=== PATIENT | female | born 1960 | race Caucasian/White ===

== ENCOUNTER → 2017-11-20 15:41 | Outpatient (CLI) | payer OTHER, SELFPAY ==
--- NOTE | 2017-11-20 15:45 | RAD_ITS ---
STUDY: X-RAY - RIGHT ELBOW REASON FOR EXAM: Female, 57 years old. Chronic pain TECHNIQUE: 3 view(s) of the elbow. COMPARISON: None. FINDINGS: Normal visualized humerus, radius and ulna. Normal radiocapitellar and ulnotrochlear articulations. The soft tissue structures are unremarkable. RAD/Elbow min 3 Views IMPRESSION: Normal x-ray examination of the elbow. Electronically Signed: Zachary Martin MD at 15:29 EDT , Service support ,
== END ==
PROVIDERS: Visit Provider Nurse Practitioner Family
DX: M25.531 Pain in right wrist (principal)
CPT/HCPCS: 73080

== ENCOUNTER 2018-10-24 09:00 | Outpatient (RCR) | payer OTHER, SELFPAY ==
--- NOTE | 2018-09-15 09:42 | HP.PTEVAL ---
Patient's Visit Information MARCO A DÍAZ is a 58 year old F referred to Physical Therapy by Felix Rod DPM with a diagnosis of R plantar fas ial fibromatosis. Date of Evaluation: 09/15/18 Physical Therapist: Will Reyes DPT, OCS, CSCS - Visit Plan Frequency: 3x /Week Duration: 4-6 Weeks Plan: 3x/week for 3-6 weeks for ... STM to PF R and ankle. stretch R gastroc. ionto with dex to R heel. Monitor and progress HEP stretch to TB strength as pain comes down. Consider dry needling if pain not improved. - Subjective Findings: Dr. Rod sent. Plantarfasciitis [facility] e October. Sqitched foot doctors and they have tried everything. R foot pain in arch and going back to heel. Has boot but could not wear it today due to snow. It does help the heel pain. Worse with walking and being on it. Had 6 cortisone shots which did not help. Got two pairs of shoes. Has nightsplint and boot and cane. Took cortisone internall. Used ice, nothing helped. Will have an MRI after seeing this doctor for 6 months. Morning is not worse than the rest of the day. 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 3 pairs custom orthotics. Sleep is OK. Activities : cannot run or ex anymore, laundry is difficult with boot on steps. carrying heavy objects makes it worse.Carrying grand daughter is worse. - Pain R heel and arch Pain Intensity (Out of 10): 2 Pain Intensity Range: 0, 10 - Objective Walks with R antalgia, slow and avoids WB through heel medially. Trasfers I. AROM R ankle DF 0 knee straight and 5 knee bent. PF/eversion/inversion WNL. Strength 4/5 in all ankle otions. Mildly tender to the touch R heel medially. Metatarsals move well asd oes big toe. Reflexes 2/3 patella and achilles. Sensation WNL to gross light touch. SLS challenging B at 8 seconds. - Goals Goal 1:: Pateint feel 75% better with pain 2/10 at worst Goal Time Frame: 4-6 Weeks Goal 2:: Patient I syed ppropriate HEP to minimize future problems. Goal Time Frame: 4-6 Weeks Goal 3:: Juan Jose confident with climbing volcano in November vacation Goal Time Frame: 4-6 Weeks - Rehabilitation Potential Physical Therapy Diagnosis: R plantar fascial fibromatosis. Rehabilitation Potential: Fair - Anticipated Interventions Patient/Client Instruction: Educate patient on: Condition, Plan of Care For the Purpose of:: To decrease pain, To increase ROM, To improve ability of physical actions for home/community/work/leisure, To improve gait and locomotor functions Therapeutic Exercise to Include: Strength training, Flexibilty training For the Purpose of:: To decrease pain, To increase ROM Manual Therapy Techniques to Include: Soft tissue mobilization For the Purpose of:: To decrease pain, To increase ROM Iontophoresis (with Dexamethozone, with Acetic acid): Yes - R heel For the Purpose of:: To decrease pain, To decrease swelling/inflammation Thank you for the opportunity to evaluate your patient. For Medicare and Medicare HMO plans, please review the plan of care and approve it. It will need to be FAXED BACK to us at [phone] for Medicare purposes. For Medicare only, by signing this I certify the plan of care. Please let me know if there are questions or concerns regarding this plan of care. Physician Signature: Date:
--- NOTE | 2018-10-24 09:26 | HP.PTDCSUM_ITS ---
HP - PT D/C Summary It has been my pleasure to treat MARCO A DÍAZ under orders from Felix Rod DPM, for the diagnosis of R plantar fas ial fibromatosis for a total of 15 visit(s). Discharge Date: 10/24/18 Please see the following information for a summary of their discharge status. - Subjective Subjective: Up and down. R knee starts hurting. Has socks and sleeves. Walked a half mile last night and got better as she went. stretching daily. Sleep is good. Worse first thing in am. Used brace at night, has orthotics, doing stretches, had injections. Frustrating at times. - Pain R heel and arch Pain Intensity (Out of 10): 1 - Overall Improvement % Improvement: 70 - Objective Objective/Function: gastroc muscle still tight at 1 degree DF with knee straight , better with knee bent. Mild tenderness R calcaneal insertion of PF mild this am. Mild antalgia walking todaya fter sitting in waiting room. Overall better but not satisfactory. - Goals Goal 1:: Pateint feel 75% better with pain 2/10 at worst Goal Progress: Not Progressing Goal 2:: Patient I syed ppropriate HEP to minimize future problems. Goal Progress: Goal Met Goal 3:: Patein confident with climbing volcano in November vacation Goal Progress: not overly confident - Plan Plan: Recommend return to doctor for nex tstep based on frustration level and up and down nature of her improvement. She will call doctor to schedule. She does have a vacation planned int wo months that she would like to be mobile for. If no other options, she can come back for further treatment. - D/C Information Discharge Comments: Pt to schedule with doctor regarding other possible options and should be sent back if no other good options based on the timing of her up coming vacation. If there are questions or concerns regarding this patient's physical therapy, please feel free to call me at [phone]. Thank you for the referral of this patient. Sincerely, Will Reyes, DPT, OCS, CSCS
== END 2018-10-24 19:00 | disposition home or self-care (01) ==
LOC: PT 09:00
PROVIDERS: Referring Provider Podiatrist; Visit Provider Podiatrist
DX: M72.2 Plantar fascial fibromatosis (principal); M79.671 Pain in right foot; M77.31 Calcaneal spur, right foot; M21.6X9 Other acquired deformities of unspecified foot
CPT/HCPCS: 97033; 97110; 97140; 97161; 97530

== ENCOUNTER → 2019-01-08 | Outpatient (CLI) | payer OTHER, SELFPAY ==
[2017-12-04 10:34] VITALS: BMI 27.8
--- NOTE | 2019-01-08 11:01 | RAD_ITS ---
STUDY: X-RAY - RIGHT KNEE REASON FOR EXAM: Right knee pain. TECHNIQUE: 4 view(s) of the knee. COMPARISON: None. FINDINGS: Normal visualized distal femur. Normal visualized proximal tibia and fibula. Normal proximal tibiofibular articulation. There is mild joint space narrowing of the medial femorotibial compartment. Normal lateral femorotibial compartment. Normal patellofemoral articulation. There is mild patellar enthesopathy. RAD/Knee 4 or More Views IMPRESSION: Mild arthrosis of the medial femorotibial compartment. Electronically Signed: Israel Merino MD at 11:44 EDT Tel , Service support ,
--- NOTE | 2019-01-08 11:01 | RAD_ITS ---
STUDY: X-RAY - PELVIS AND RIGHT HIP REASON FOR EXAM: Right hip/groin pain. TECHNIQUE: 2 views of the pelvis and hip. COMPARISON: None. FINDINGS: Normal visualized soft tissue structures. Normal bilateral iliac wings, sacroiliac joints and visualized sacrum. Normal bilateral superior and inferior pubic rami. Normal pubic symphysis. Normal bilateral ischial tuberosities. Normal visualized femoral head. Normal acetabulum. Normal hip joint. RAD/HIP, UNI W/ Pelvis 2-3 Views IMPRESSION: Normal x-ray examination of the pelvis and right hip. Electronically Signed: Israel Merino MD at 11:48 EDT Tel , Service support ,
--- NOTE | 2019-01-08 12:05 | RAD_ITS ---
STUDY: X-RAY - LUMBOSACRAL SPINE REASON FOR EXAM: Female, 58 years old. Radiculopathy with hip and back pain. TECHNIQUE: 7 view(s) of the lumbosacral spine including lateral flexion and extension views were obtained. COMPARISON: None FINDINGS: Normal lumbar lordosis. There is no substantial scoliosis. There is normal alignment of the vertebrae. There is limited flexion and extension with no abnormal motion. Normal vertebral bodies and endplates. There is intervertebral disc space narrowing at multiple levels, most marked at L5-S1 with small osteophytes. There is diffuse facet sclerosis. Normal bilateral sacral ala, sacroiliac joints, and visualized sacrum. Normal visualized soft tissue structures. RAD/L/S Spine Comp/w Bending Views IMPRESSION: Limited flexion and extension with no abnormal motion. Mild lumbar spondylosis. Electronically Signed: Lucio Latif MD at 12:50 EDT , Service support ,
== END | disposition home or self-care (01) ==
LOC: HPRAD 11:00
PROVIDERS: Referring Provider Orthopaedic Surgery; Visit Provider Orthopaedic Surgery
DX: M25.551 Pain in right hip (principal); M25.561 Pain in right knee; M54.5 Low back pain
CPT/HCPCS: 72114; 73502; 73564

== ENCOUNTER → 2020-03-14 | Outpatient (CLI) | payer OTHER, SELFPAY ==
[2020-03-14 12:59] VITALS: BMI 27.8
--- NOTE | 2020-03-14 13:01 | RAD_ITS ---
STUDY: X-RAY - RIGHT KNEE REASON FOR EXAM: Female, 59 years old. Chronic right knee pain TECHNIQUE: 4 view(s) of the knee. COMPARISON: 01/08/2019 FINDINGS: Normal visualized distal femur. Normal visualized proximal tibia and fibula. Normal proximal tibiofibular articulation. There is mild degenerative arthrosis of the medial femorotibial compartment. Normal lateral femorotibial compartment. Normal patellofemoral articulation. The soft tissue structures are unremarkable. RAD/Knee 4 or More Views IMPRESSION: Mild medial compartment arthrosis, no demonstrated fracture or suspicious osseous lesion Electronically Signed: Zachary Martin MD at 13:29 EDT , Service support ,
== END | disposition home or self-care (01) ==
LOC: HPRAD 13:00
PROVIDERS: Referring Provider Physician Assistant; Visit Provider Physician Assistant
DX: M25.561 Pain in right knee (principal)
CPT/HCPCS: 73564

== ENCOUNTER → 2020-03-24 | Outpatient (CLI) | payer OTHER, SELFPAY ==
[2020-03-14 12:59] VITALS: BMI 27.8
--- NOTE | 2020-03-24 13:47 | MRI_ITS ---
STUDY: MRI RIGHT KNEE REASON FOR EXAM: Female, 59 years old. Knee pain TECHNIQUE: Standardized fat and water weighted pulse sequences were obtained in all 3 orthogonal planes. COMPARISON: X-ray 03/14/2020 FINDINGS: Normal medial meniscus. Normal hyaline cartilage of the medial femorotibial compartment. Normal medial femoral condyle and tibial plateau. Normal medial collateral ligamentous complex (MCL). Normal distal semimembranosus, gracilis and semitendinosus tendons. Normal lateral meniscus. Normal hyaline cartilage of the lateral femorotibial compartment. Normal lateral femoral condyle and tibial plateau. Normal proximal tibiofibular articulation. Normal lateral collateral (fibular) ligament. Normal popliteus tendon. Normal biceps femoris tendon. Normal anterior cruciate ligament (ACL). Normal posterior cruciate ligament (PCL). Focal chondromalacia and subchondral edema of the median ridge of the patella and the medial trochlea. Normal hyaline cartilage of the patellofemoral compartment. Normal medial and lateral patellar retinaculum. Normal quadriceps tendon. Normal patellar tendon. Normal Hoffa''s fat pad. There is no joint effusion. The soft tissues are unremarkable. The otherwise visualized osseous structures are unremarkable. MRI/Lower Ext Joint Only (Routine) IMPRESSION: Mild patellofemoral compartment arthrosis with focal chondromalacia and subchondral edema of the median ridge of the patella and the medial trochlea. Electronically Signed: Joe Neely MD at 16:07 EDT Tel , Service support ,
== END | disposition home or self-care (01) ==
PROVIDERS: PCP Family Medicine; Referring Provider Physician Assistant; Visit Provider Physician Assistant
DX: M23.91 Unspecified internal derangement of right knee (principal); M25.561 Pain in right knee
CPT/HCPCS: 73721

== ENCOUNTER → 2020-06-21 | Outpatient (CLI) | payer OTHER, SELFPAY ==
[2020-06-26 13:13] LABS: HPV Reflexed? NOT INDICATED
== END | disposition home or self-care (01) ==
LOC: LABSPEC 06-22 10:22
PROVIDERS: PCP Family Medicine; Visit Provider Obstetrics & Gynecology
DX: Z12.4 Encounter for screening for malignant neoplasm of cervix (principal)
CPT/HCPCS: 88175; G0145

== ENCOUNTER 2020-07-06 06:26 | Day surgery (SDC) | payer OTHER, SELFPAY ==
[2020-05-24 14:20] VITALS: BMI 27.8
--- NOTE | 2020-07-06 06:12 | HP_ITS ---
I have re-examined the patient. There are no clinical changes since date of exam. Intake Intake Visit Reasons: RIGHT KNEE Allergies No Known Allergies Allergy (Verified 03/31/20 08:30) [facility] Surgical History (Updated 12/04/17 @ 10:35 by Joni Ngeron) Fracture, ankle (Inactive) HPI RIGHT KNEE: Surgical H&P: Yes Details: Parts of this documentation were recorded by a scribe, this documentation accurately reflects the service provided and the decisions made by me, Dr. Reanna Carlos, DO 06/07/20 [id number]. MARCO A DÍAZ is a 59 year old F here today to sign surgical consent for her right knee. Denies any changes from last office visit. Right knee pain is located in the medial knee. Denies numbness, tingling or other associated symptoms. Pain is rated 2/10 from the pain scale. Pain ranges depending on her activity level. Patient is taking ibuprofen for her pain. Patient has been also using icy-hot for pain relief. ROS Const Reports weakness Musc Reports system reviewed and no additional complaints, except as docu, Reports abnormal walking, Reports joint pain, Reports joint swelling, Denies numbness, Denies stiffness, Denies tingling Skin/Breast Reports system reviewed and no additional complaints, except as docu, Denies dry skin, Denies redness, Denies lesions, Denies new lesions, Denies non-healing lesions, Denies itching, Denies rash, Denies skin ulcer, Denies sores, Denies wounds Neuro Yes system reviewed and no additional complaints, except as docu, Yes abnormal walking, No numbness, No tingling, No tremor(s), Yes weakness Ortho Exam Right Knee Skin/Wound: No erythema, No ecchymosis, No swelling Knee ROM: Yes ROM-Extension -20 to 0 Examination: Yes Med jt line tenderness (Seems to be more localized to the femoral condyle), No Lat jt line tenderness, No TTP inf pole patella, No Crepitus, No Pain with extention, Yes Ashtyn's Test, Yes Chavez's, No TTP Patellar tendon Stability: NML: Anterior Drawer KNEE: Patient has no abnormalities on inspection of the knee. No localized or generalized swelling and no ecchymosis/bruising, erythema, or other skin changes. She consents to have full range of motion same time discomfort with flexion. She also has pain letting the leg dangle at 90 degrees with gravity. She continues to have evident localized reproducible tenderness on palpation of the medial joint line primarily on the femoral condyle. We discussed the current risk associated COVID-19. While it is understood that there is a community spread of COVID 19 the risk of vasiliy COVID-19 while at [facility] is very low, however, the risk cannot be completely mitigated because of the community spread of the disease. We discussed in detail the risk of exposure to and or potential harm posed by the COVID-19 virus with having a surgery/procedure at this time versus the risk of delaying the surgery/procedure. Is not possible to know either the risk of delaying the surgery procedure or chance of getting an infection with perfect accuracy, but a joint decision was made to proceed at this time with a schedule surgery/procedure as indicated on the consent form. Patient was notified that we will need to comply with any screening or testing [facility] wishes to perform or that surgery may be delayed for any positive results. Assessment & Plan Problems 1. Acute medial meniscus tear of right knee, subsequent encounter S83.241D 2. 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 Reviewed the pre-operative plans with the patient. Risks and benefits of the procedure were fully explained, including but not limited to infection, neurovascular injury, continued pain, arthritis, stiffness, need for further surgery, re- injury, DVT, PE, general risks of anesthesia, and loss of limb or life. The patient understands all the risks and does wish to proceed with written consent. Patient wishes to proceed with right knee micro fracture of the medial femoral condyle along with medial meniscus repair vs meniscectomy and repair as indicated. Surgery date is scheduled for 07/06/2020. The confinement to the radial nerve palsy alma we discussed the current risk associated COVID-19. While it is understood that there is a community spread of COVID 19 the risk of vasiliy COVID-19 while at [facility] is very low, however, the risk cannot be completely mitigated because of the community spread of the disease. We discussed in detail the risk of exposure to and or potential harm posed by the COVID-19 virus with having a surgery/procedure at this time versus the risk of delaying the surgery/procedure. Is not possible to know either the risk of delaying the surgery procedure or chance of getting an infection with perfect accuracy, but a joint decision was made to proceed at this time with a schedule surgery/procedure as indicated on the consent form. Patient was notified that we will need to comply with any screening or testing [facility] wishes to perform or that surgery may be delayed for any positive results. Follow up post op or sooner if pain, swelling, numbness or associated symptoms, or concerns develop. All questions answered. Patient in agreement of plan. 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 delaying the surgery/procedure. It is not possible to know either the risk of delaying the surgery or procedure or chance of getting an infection with perfect accuracy, but a joint decision was made between the patient and the surgeon/proceduralist ?to proceed at this time with the scheduled surgery/procedure as indicated on the consent form.
[2020-07-06 06:54] VITALS: BP 115/64; PULSE 53; RESP 18; TEMP 36.5; O2SAT 100; BMI 27.4
[2020-07-06] MEDS: Lactated Ringers 1,000 ML 100 ML IV (07:10)
--- NOTE | 2020-07-06 07:40 | PCM.DC.ORTHO ---
Discharge Diet: No Restrictions - Weight-bear as tolerated operative leg, remove dressings in 4 days and may get incisions wet at that time, call with increased pain numbness tingling further issues arise, follow-up in 2 weeks Discharge Activity: May Not Drive May shower in (days): 1 Ice area for (Minutes): 20 - Every hour while awake. Weight Bearing Status: Weight bearing as tolerated Keep extremity elevated above heart level: Operative Extremity Call your doctor if your incision/area has: Continuous Slow Oozing, Sudden Increased Bleeding, Increased Pain/ Swelling, Increased Redness, Foul Smelling Discharge Call your doctor if you observe: Fever of 101 or Higher, Coldness, Increased Pain, Numbness or Tingling, Change in Color, Calf discomfort Allergies/Adverse Reactions: Allergies No Known Allergies Allergy (Verified 07/06/20 06:51) Medications to take at Discharge ezetimibe 10 mg tablet 10 mg PO DAILY 01/08/19 Ascorbic Acid [Vitamin C] 500 mg PO DAILY@0800 06/28/20 Ibuprofen 200 mg PO PRN PRN 06/28/20 Magnesium Oxide [Magnesium] 250 mg PO DAILY 06/28/20 Multivitamin [Once Daily] 1 ea PO DAILY 06/28/20 Zinc 50 mg PO DAILY 06/28/20 Oxycodone HCl/Acetaminophen [Percocet 5/325] 1 - 2 tab PO Q6H PRN PRN 5 Days #28 tab 07/06/20 The following prescriptions were given: Oxycodone HCl/Acetaminophen [Percocet 5/325] 1 - 2 tab PO Q6H PRN PRN 5 Days #28 tab PRN Reason: Pain Transmission Status: Received by [facility] Primary Care Physician: Calixto Mercado MD [Primary Care Provider] - Test Results: Test results from this visit will be discussed in further detail at your follow-up appointment, if applicable. Please Follow Up With: Reanna Carlos, DO - [phone]
--- NOTE | 2020-07-06 07:40 | PCM.OPRPT ---
Report of Operation Date of Procedure: 07/06/20 Pre-Operative Diagnosis: Right knee arthritis, medial meniscus tear, medial femoral condyle chondral lesion Post-Operative Diagnosis: Same, patella chondral malacia Surgery/Procedure Performed:: Sark, partial medial meniscectomy, extensive synovectomy, medial femoral condyle and patella chondroplasty special education bus driver: John Vergara Type of Anesthesia:: General Anesthesiologist: José Miguel Gonzalez Fluids Replaced: 800cc lr Description of Procedure: Preop note Patient is 60-year-old female with continued right knee pain and instability clicking and locking. Failed conservative treatment MRI confirms medial meniscus tear as well as arthritis and chondral defect of her medial femoral condyle. Risk benefits alternatives surgery discussed with patient. Risk include but not limited to blood loss, blood clot, infection, neurovascular, failure procedure, loss of life and loss of limb. Patient is aware like proceed with right knee arthroscopy repair as indicated. Jose Sarabia Operative note Patient seen and examined preop preoperative holding area. Right knee was marked. Patient brought the operating placed supine on the operating table. Signed, anesthesia, antibiotics were administered. The right leg was prepped and draped usual sterile technique with a tourniquet around her upper thigh. All bony promises well-padded SCDs placed on her contralateral limb. We then marked out our incision for bony landmarks for our anterior lateral anterior more medial portion portal placement. Timeout was performed. The right leg with an elevated segmented tourniquet was raised her pressure 250 torr. Began our our diagnostic arthroscopy. We used a 11 blade to create anterior lateral portal. Patellofemoral joint was unremarkable except there was some loose pieces of of cartilage and chondral instability at the inferior pole of the patella moved to the medial joint line. We created an anteromedial portal under direct visualization. We probed the medial meniscus there was a sharp radial tear in the mid body. We then inserted combination of a shaver and a basket to remove the unstable meniscus piece we then reinserted probe and noted we had good stable remnant meniscus remaining. Patient the prior to that we did have to perform an extensive synovectomy as it was difficult difficulty visualizing anteromedial anterior lateral into the joint. ACL PCL were present within the notch. The lateral femoral condyle lateral tibial plateau and the lateral meniscus with the table stacked and stable to probing. She had 3 grade 3 changes with 3 x 3 almost half of her medial femoral condyle there were some loose cartilage pieces that was gently debrided back with a shaver. Because of this there was no reason to the extensiveness of her stenting of her cartilage to do a microfracture. Again we debrided back any stable unstable pieces of her medial femoral condyle as well as her patella we irrigated the knee with copious muscle sterile saline. Tract was deflated for total working time of 26 minutes. Incision was closed with interrupted 4-0 nylon stitches. Sterile dressings were applied. Patient taught procedure well no complication transfer recovery room in stable condition Operative note postoperative note Weight-bear as tolerated right leg Follow-up in 2 weeks May remove dressings in 4 days We will give pictures in 2 weeks Call with increased pain numbness tingling further issues arise Dragon disclaimer This note was generated with [employer] dictation software. It may contain incorrect words, spelling, and punctuation that were not noted in checking the note before signing.
[2020-07-06] MEDS: Cefazolin 2 GM in 0.9% Normal Saline 100 ML IV (07:50)
[2020-07-06] MEDS: Bupiv/Epi 0.25% 30 ML Vial (08:30)
[2020-07-06] MEDS: Mupirocin Ointment 22gm Tube 1 APPLIC (08:31)
[2020-07-06] MEDS: Epinephrine (1 mg/ml) 1 MG/ML VIAL (08:31)
[2020-07-06 08:46] VITALS: BP 115/64; BP 125/74; PULSE 63; RESP 18; TEMP 36.6; O2SAT 98
[2020-07-06 08:54] VITALS: BP 115/64; BP 127/96; PULSE 61; RESP 18; O2SAT 99
[2020-07-06 09:00] VITALS: BP 115/64; BP 122/85; PULSE 63; RESP 18; O2SAT 100
[2020-07-06 09:12] VITALS: BP 115/64; BP 128/79; PULSE 61; RESP 18; TEMP 36.4; O2SAT 98
[2020-07-06 10:10] VITALS: BP 115/64; BP 133/77; PULSE 56; RESP 16; TEMP 36.3; O2SAT 100
== END 2020-07-06 10:55 | disposition home or self-care (01) ==
LOC: SDC 06:26 → AC 06:27
PROVIDERS: PCP Family Medicine; Referring Provider Orthopaedic Surgery; Visit Provider Orthopaedic Surgery
PROC: (CPT 29882; principal; 2020-07-06 07:40)
DX: S83.241A Other tear of medial meniscus, current injury, right knee, initial encounter (principal); M17.11 Unilateral primary osteoarthritis, right knee; E78.00 Pure hypercholesterolemia, unspecified; Z79.899 Other long term (current) drug therapy; X58.XXXA Exposure to other specified factors, initial encounter; Y93.89 Activity, other specified; Y92.89 Other specified places as the place of occurrence of the external cause; Y99.8 Other external cause status
CPT/HCPCS: 01400; 29881; 87426; C9803; J7120; J2405

== ENCOUNTER → 2024-04-28 | Outpatient (CLI) | payer OTHER, SELFPAY ==
--- NOTE | 2024-04-28 | EMB_PTH ---
PATIENT: MARCO A DÍAZ LOC: [facility] U#:[id number] AGE/SX: 63/F ROOM: RE04/28/[address]: BARB Leiva : 1960 BED: DIS: 04/28/2024 SPEC #: [id number] RECD: 04/28/24 12:01 STATUS: BK REJackie #: [id number] IMELDA: 04/28/24 00:[address]: Kamilla Calvo NP DEPT: SURGICAL PATHOLOGY RECD BY: Prosper Simental ENTERED: 04/29/24 05:53 SP TYPE: ENDOM BX/C PRAMOD DR: Dr. Calixto Mercado MD Tissues: Endometrium, NOS Procedures: Surgery Specimen Level IV HEADER OPERATION: Endometrial biopsy PRE-OP DIAGNOSIS: Post menopausal bleeding TISSUE SUBMITTED: Endometrial lining MICROSCOPIC DIAGNOSIS Endometrial biopsy: Fragments of inactive endometrium with focal cystic changes and mucous. See comment. VIN/ 04/29/2024 COMMENT Clinical correlation and appropriate follow up are necessary. MICROSCOPIC DESCRIPTION Slides are reviewed. GROSS DESCRIPTION Received is one container labeled with the patient's name and not further designated. The specimen consists of multiple irregular fragments of grimaldo soft tissue mixed with mucoid tissue that in aggregate measure 2.5 x 2.0 x 0.2 cm. The specimen is totally submitted in one cassette. VIN/ 04/28/2024 TC:4 CPT:17904
[2024-05-01 18:08] LABS: HPV APTIMA, High Risk Negative (Negative)
== END | disposition home or self-care (01) ==
LOC: LABSPEC 13:57
PROVIDERS: PCP Family Medicine; Referring Provider Nurse Practitioner Women's Health; Visit Provider Nurse Practitioner Women's Health
DX: Z12.4 Encounter for screening for malignant neoplasm of cervix (principal)
CPT/HCPCS: 87624; 88175; 88305; G0145

== ENCOUNTER → 2024-07-28 | Outpatient (CLI) | payer OTHER, SELFPAY ==
--- NOTE | 2024-07-28 12:22 | US_ITS ---
STUDY: ULTRASOUND OF THE FEMALE PELVIS - COMPLETE REASON FOR EXAM: Female, 64 years old. Monitor uterine lining LMP: Patient is postmenopausal. TECHNIQUE: Transabdominal and Transvaginal TECHNICAL QUALITY: Adequate. COMPARISON: None. FINDINGS: The uterus is anteverted and is in a midline position. The uterus measures 8 cm x 4.8 cm x 3.1 cm. There is a Nabothian cyst of the cervix. The endometrium is thickened and measures 7.7 mm in thickness, and is heterogeneous (striated). There is no demonstrated endometrial mass. There is evidence of a 2.5 cm x 2.7 cm x 2.7 cm fundal fibroid. I.U.D. - The patient does not have an I.U.D. The right ovary is visualized. The right ovary measures 1.2 cm x 1.1 cm x 0.7 cm. There is no right ovarian cyst or ovarian mass. There is no visualized right adnexal mass or complex lesion. There is normal arterial and normal venous vascularity. The left ovary is visualized. The left ovary measures 1.7 cm x 1.1 cm x 0.6 cm. There is no left ovarian cyst or ovarian mass. There is no visualized left adnexal mass or complex lesion. There is normal arterial and normal venous vascularity. There is no fluid in the cul-de-sac. The pre void volume of the bladder was 221 ml. US/Pelvic w/ Transvaginal IMPRESSION: Heterogeneous thickening of the endometrium and with multiple small cystic structures. 2.5 cm x 2.7 cm x 2.7 cm fundal fibroid. Electronically Signed: Sky Ramírez MD at 9:14 EST ,
== END | disposition home or self-care (01) ==
PROVIDERS: PCP Family Medicine; Referring Provider Nurse Practitioner Women's Health; Visit Provider Nurse Practitioner Women's Health
DX: R93.89 Abnormal findings on diagnostic imaging of other specified body structures (principal); Z78.0 Asymptomatic menopausal state; N95.0 Postmenopausal bleeding
CPT/HCPCS: 76830; 76856

== ENCOUNTER → 2025-02-01 | Outpatient (CLI) | payer OTHER, SELFPAY ==
--- NOTE | 2025-02-01 09:03 | US_ITS ---
PROCEDURE: PELVIC W/ TRANSVAGINAL REASON FOR EXAM: OVARIAN CYST, ENDOMETRIUM TECHNIQUE: Transabdominal and transvaginal pelvic ultrasound COMPARISON: Prior study dated July 28, 2024. FINDINGS: Measurements: Uterus: 10.1 cm x 5.1 cm x 3 cm with a volume of 80.5 mL Endometrial Thickness: 7.8 mm. This is thickened for postmenopausal state. Multiple cystic structures are seen within the endometrium. Right Ovary: 1.7 cm x 1.4 cm x 1.3 cm with a volume of 1.54 mL. Left Ovary: 1.8 cm x 1 cm x 1.3 cm with a volume of 1.13 mL. TRANSABDOMINAL: Uterus: There is a 2.6 cm 2.6 cm 2.5 cm fundal fibroid. Endometrium: The endometrium is thickened. It is hyperechoic. Multiple cystic changes are seen within it. The largest measures 8 mm x 4 mm x 4 mm. Right ovary: Normal size and echotexture. Left ovary: Small left ovarian follicle. Other: No large pelvic mass identified. Transvaginal sonography was performed to better visualize the endometrium. TRANSVAGINAL: Uterus: Anteverted. Fundal fibroid. Endometrium: Endometrial thickening with multiple small cystic structures within it. Right ovary: Normal size and echotexture. Left ovary: Small left ovarian follicle. Other adnexal findings: None. Cul-de-sac: No free intraperitoneal fluid identified. Tenderness: No tenderness US/Pelvic w/ Transvaginal IMPRESSION: Endometrial thickening with cystic structures within the endometrium. Small left ovarian follicle. Reading Location: [place] [id number]
== END | disposition home or self-care (01) ==
PROVIDERS: PCP Family Medicine; Referring Provider Nurse Practitioner Women's Health; Visit Provider Nurse Practitioner Women's Health
DX: R93.89 Abnormal findings on diagnostic imaging of other specified body structures (principal)
CPT/HCPCS: 76830; 76856

== ENCOUNTER 2025-07-08 05:45 | Day surgery (SDC) | payer OTHER, SELFPAY ==
--- NOTE | 2025-06-29 13:37 | EKG12_ITS ---
Test Reason : PREOP Blood Pressure : */* mmHG Vent. Rate : 72 BPM Atrial Rate : 72 BPM P-R Int : 132 ms QRS Dur : 72 ms QT Int : 384 ms P-R-T Axes : 57 11 -29 degrees QTcB Int : 420 ms Sinus rhythm with Premature supraventricular complexes Nonspecific ST and T wave abnormality Abnormal ECG Confirmed by Felix Hoff ([id number]), continuity editor [employer] NAVARRETE ([id number]) on 06/30/2025 7:17:21 AM Referred By: Luis Mcconnell Confirmed By: Felix Hoff
[2025-06-29 15:03] LABS: Hematocrit 41.2 % (37-47); Hemoglobin 14.0 g/dL (12.0-15.0); Immature Granulocytes Count 0.020 X10^3/uL (0.0-0.0); Mean Corp Hgb Conc 34.0 g/dL (32-36); Mean Corpuscular Volume 86.2 fL (81-99); Mean Platelet Vol. 10.4 fl (6.2-12.0); NRBC Flagged by Analyzer 0 % (0-5); Platelet Count 273 K/mm3 (150-450); RBC Distribution Width CV 12.4 % (11.6-14.6); RBC Distribution Width SD 39.3 fl (35.1-43.9); Red Blood Count 4.78 M/mm3 (4.2-5.4); White Blood Count 7.1 K/mm3 (4.4-11.0)
[2025-06-29 15:38] LABS: Anion Gap 9 (5-15); BUN 8 mg/dL (4-19); BUN/Creat Ratio 14.6 RATIO (10-20); Calcium,Total 9.3 mg/dL (7.6-11.0); Carbon Dioxide 27.0 mmol/L (21.0-32.0); Chloride 106 mmol/L (98-108); Glucose 105 mg/dL (70-99); Potassium 3.9 mmol/L (3.3-5.1)
--- NOTE | 2025-06-30 09:31 | PAT.ANESEVAL ---
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 When Was Last Pacemaker Check QUESTION #4 FULL TEXT: You/Your Family Experience fever (hyperthermia) with Anesthesia Last Oral Intake Last Oral intake: Last Oral Intake NPO since Meds taken in AM with sips of water? Meds patient instructed to take am of surgery PONV PONV - exercise specialist: PONV - exercise specialist Female Yes 06/23/25 13:02 HX of Motion Sickness Yes 06/23/25 13:02 HX of N/V After Surgery No 06/23/25 13:02 Non-Smoker Yes 06/23/25 13:02 Duration of Surgery greater Yes 06/23/25 13:02 than 60 minutes Number of Risk Factors 4 06/23/25 13:02 PONV Score Severe Risk 06/23/25 13:02 Height & Weight Height & Weight: Anesthesia: Height & Weight Height 5 ft 3.5 in 04/28/24 09:42 Respiratory Assessment Respiratory Assessment - exercise specialist: Respiratory Tract Infection Hx - exercise specialist Hx Respiratory Tract Infection No 06/23/25 13:02 STOP Sleep Apnea STOP Sleep Apnea - exercise specialist: STOP Sleep Apnea - exercise specialist Hx Hypertension No 06/23/25 13:02 Hx Sleep Apnea No 06/23/25 13:02 CPAP No 06/23/25 13:02 BIPAP Do you snore loudly (louder No 06/23/25 13:02 than talking or can be heard Do you often feel tired/ No 06/23/25 13:02 fatigued/ sleepy during daytime? Has anyone observed you stop No 06/23/25 13:02 breathing during sleep? STOP Results Negative 06/23/25 13:02 QUESTION #5 FULL TEXT : Do you snore loudly (louder than talking or can be heard through closed doors)? 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 Specify any problems Hx of Preganancy in last 3 No 06/23/25 13:02 Months Nurse Filling Out Transfusion DSCHRIBER 06/23/25 13:02 & Questions: Date: 06/23/25 06/23/25 13:02 Time: 13:04 06/23/25 13:02 Patient unable to answer at this time (ie. confused, unrespo /Reproduction History /Reproductive History - exercise specialist: /Reproductive Hx- exercise specialist Hx Now No 06/23/25 13:02 Gestational Age (in weeks): EDC: Hx Hx Para Hx Section SAB No 06/23/25 13:02 PFSH Medical History (Updated 06/23/25 @ 13:18 by Ernestina Boles) Wears contact lenses Wears glasses Post-menopausal Alcohol use Arthritis Migraine headache High cholesterol Non-smoker History of pain when walking History of edema Cardiology follow-up encounter Hx of fracture of ankle Home Medications Medication Instructions Recorded Last Taken Type ezetimibe 10 mg tablet 10 mg PO DAILY 01/08/19 Unknown History coenzyme Q10 75 mg capsule 75 mg PO DAILY 09/19/20 Unknown History cholestyramine 4 gram oral powder 4 g PO DAILY 06/23/25 Unknown History (Cholestyramine Light) estradiol 0.01% (0.1 mg/gram) 1 appful vaginal QWEEK 06/23/25 Unknown History vaginal cream meloxicam 15 mg tablet 15 mg PO DAILY PRN pain 06/23/25 Unknown History multivitamin (Daily Multi-Vitamin 1 tab PO DAILY 06/23/25 Unknown History tablet) Allergy/AdvReac Type Severity Reaction Status Date / Time No Known Allergies Allergy Verified 06/23/25 12:58 Family History (Updated 04/28/24 @ 09:52 by Amber Mccabe) Mother Cancer Skin cancer- Mets to lung and brain Surgical History (Updated 06/23/25 @ 13:09 by Ernestina Boles) Hx of colonoscopy Hx of right knee surgery S/P knee replacement Social History (Updated 04/28/24 @ 09:53 by Amber Mccabe) household members: spouse current occupational status: employed current occupation: [employer] Smoking Status: Never smoker alcohol intake: never substance use type: does not use seatbelt use: always do you feel safe at home: Yes additional social history: - Ralph Audit: Pertinent Findings Current Visit Impressions Current Visit Impressions: Sinus rhythm with Premature supraventricular complexes Nonspecific ST and T wave abnormality Abnormal ECG Confirmed by Felix Hoff ([id number]), managing editor [employer] ([id number]) on 06/30/2025 7:17:21 AM Recommendation Anesthesia Recommendation Anesthesia recommendation: OPTIMIZED for anesthesia
[2025-07-08] VITALS (9 sets, daily range): BP systolic 119–147; BP diastolic 72–83; PULSE 57–68; RESP 12–18; TEMP 36.1–36.9; O2SAT 91–98; BMI 26.4
--- OUTSIDE RECORDS SUMMARY | 2025-07-08 05:48 | XMS RPT_ITS | CCD ---
Author Organization [facility] Care Team Providers Care Fur Cutter Name Role Phone Unavailable Primary Care Provider Unavailabl e Vaccaripalmer, Jaun Primary Care Provider HEDY MORALES Referring Unavailable HEDY MORALES Attending Unavailable HEDY MORALES Attending Unavailable HEDY MORALES Referring Unavailable Vaccariello Cristina CUETO Primary Care Provider [phone] HEDY MORALES Attending Unavailable HEDY MORALES Referring Unavailable VACCARIELLO, JAUN Primary Care Unavailable JAY SQUIRES Admitting Unavailab le JAY SQUIRES Attending Unavailab le VACCARIELLO, JAUN Primary Care Unavailable JAY SQUIRES Referring Unavailab le VACCARIELLO, CRISTINA Isaac Admitting Unavailable VACCARIELLO, JAUN Primary Care Unavailable JAY SQUIRES Attending Unavailab le JAY SQUIRES Referring Unavailab le VACCARIELLO, JAUN Primary Care Unavailable HEAVENLY SHAY Attending Unavailable MORALESHEDY ROMERO Attending Unavailable VACCARIELLO, JAUN Primary Care Unavailable HEAVENLY SHAY Attending Unavailable VACCARIELLO, JAUN Primary Care Unavailable HEDY MORALES Attending Unavailable VACCARIELLO, JAUN Primary Care Unavailable HEDY MORALES Attending Unavailable VACCARIELLO, JAUN Primary Care Unavailable JAY SQUIRES Admitting Unavailab CHANEL Lopez Attending Unavailabl e JAY SQUIRES Referring Unavailab le VACCARIELLO, JAUN Primary Care Unavailable JAY SQUIRES Attending Unavailab le VACCARIELLO, JAUN Primary Care Unavailable JAY SQUIRES Attending Unavailab le VACCARIELLO, JAUN Primary Care Unavailable JAY SQUIRES Attending Unavailab le VACCARIELLO, JAUN Primary Care Unavailable JAY SQUIRES Admitting Unavailab carmen SQUIRES, JAY MOSS Referring Unavailab le VACCARIELLO, JAUN Primary Care Unavailable EBEN GAUERO Attending Unavailable CRISTINA MERCADO Primary Care Unavailable Jess, Cristina Faith Primary Care Provider Jess, Jaun Unavailable Unavailable Delia Buckley Unavailable Unavailable Brennen Lang Unavailable Unavailable Vaccaripalmer, Dr. Cristina Faith Primary Care Un available Delia Buckley Attending Unavailable Vaccaripalmer, Dr. Cristina Faith Primary Care Un available Rickey, Ms. Brennen Ludwig Attending Eliane Mercado MD, Cristina Isaac Unavailable Gastroenterology Provider Unavailable Eliane Ramirez MD., Dr. Diaz Unavailable Physical Therapy, Zeus Robert Unavailable Xavier CARRERA MD, Dr. Washington Unavailable Unavailable Cisco CUETO, Galilea Meza Unavailable Marcio URBAN PLANNER, Hanna Unavailable Luis HALEY, Suki Alan Unavailable Javi CUETO, Thaddeus Stratton Unavailable Bry GOODEN, Luna Meza Unavailable Unavailable Tigre GOODEN, Cristina Unavailable Unavailable Dalila HALEY, Delia Moore Unavailable [phone] Dana Rodriguez Unavailable Unavailable Robi GOODEN, Marsha Unavailable Unavailable Messi GROVE, Delia Isaac Unavailable Unavaila ble Mike URBAN PLANNER, Gemma Unavailable Unavailable Ronald HALEY, Airam J Unavailable Stew URBAN PLANNER, Dot Johansen Unavailable Unavailab carmen Romy URBAN PLANNER, Galilea Lopez Unavailable Unavailab carmen Alvarado LPN, Amina Unavailable Unavailabl e Cheikh GOODEN, Martita Madera Unavailable Unavaila ble Unavailable Unavailable Erin Miller LPN Unavailable Unavailbrenna Khan DO, Dr. Smith Unavailable Cristina Mercado Primary Care Provider LAURIE WALKER PIPING MANAGER Admitting Unavailable VACCARIELLO, CRISTINA Consulting Unavailable LAURIE WALKER PIPING MANAGER Attending Unavailable LAURIE WALKER PIPING MANAGER Primary Care Unavailable PROVIDER, UNKNOWN Consulting Unavailable PROVIDER, UNKNOWN Consulting Unavailable PROVIDER, UNKNOWN Consulting Unavailable LAURIE WALKER PIPING MANAGER Admitting Unavailable VACCARIELLO, CRISTINA Consulting Unavailable LAURIE WALKER PIPING MANAGER Attending Unavailable LAURIE WALKER PIPING MANAGER Primary Care Unavailable PROVIDER, UNKNOWN Consulting Unavailable PROVIDER, UNKNOWN Consulting Unavailable PROVIDER, UNKNOWN Consulting Unavailable VACCARIELLO, CRISTINA Consulting Unavailable LAURIE WALKER PIPING MANAGER Attending Unavailable LAURIE WALKER PIPING MANAGER Primary Care Unavailable LAURIE WALKER PIPING MANAGER Admitting Unavailable PROVIDER, UNKNOWN Consulting Unavailable PROVIDER, UNKNOWN Consulting Unavailable PROVIDER, UNKNOWN Consulting Unavailable VACCARIELLO, CRISTINA Consulting Unavailable LUIS KHAN DO Admitting Unavailable LUIS KHAN DO Attending Unavailable LUIS KHAN DO Primary Care Unavailable PROVIDER, UNKNOWN Consulting Unavailable PROVIDER, UNKNOWN Consulting Unavailable PROVIDER, UNKNOWN Consulting Unavailable VACCARIELLO, CRISTINA Consulting Unavailable LAURIE WALKER PIPING MANAGER Attending Unavailable LAURIE WALKER NP Primary Care Unavailable LAURIE WALKER PIPING MANAGER Admitting Unavailable PROVIDER, UNKNOWN Consulting Unavailable PROVIDER, UNKNOWN Consulting Unavailable PROVIDER, UNKNOWN Consulting Unavailable Vaccariello Dr. Cristina CUETO Primary Care Provider [place] PIPING MANAGER-Kamilla Byers Attending Provider [place] PIPING MANAGER-CKamilla Referring Provider [phone] DIOMEDES BRADY Attending Unavailabl e SELF Referring Unavailable [facility] Gordon Attending UnavailDIOMEDES Chavez Ref[facility] Attending Unavailabl e DIOMEDES BRADY Referring [facility]ailabl [facility] Luis Key Attending Unavailable Cristina Mercado Primary Care Unavailable Luis Khan Referring Unavailable Vaccchuyitaello, Cristina Primary Care Unavailable [place] PIPING MANAGER, Kamilla Referring Unavailable [place] PIPING MANAGER, Kamilla Attending Unavailable Cristina Mercado Primary Care Unavailable [place] PIPING MANAGER, Kamilla Referring Unavailable [place] PIPING MANAGER, Kamilla Attending Unavailable Medications Current Medications Medication Drug Class(es) Dates Sig (Normalized) Sig (Original) ascorbic acid 500 mg oral tablet (1 source) Vitamin C Start: 06-28-2020 take 1 tablet by mouth once daily Ascorbic Acid (Vitamin C) 500 MG tablet Active 500 mg PO DAILY@0800 June 28, 2020 1:00am aspirin 325 mg delayed release oral tablet (2 sources) Platelet Aggregation Inhibitor, Nonsteroidal Anti-inflammatory Drug Start: 07-03-2021 End: 08-02-2021 take 1 tablet by mouth twice daily aspirin 325 MG EC tablet Take 1 (one) tablet (325 mg total) by mouth 2 (two) times a day . 60 tablet 0 07/03/2021 08/02/2021 Active brompheniramine maleate 0.4 mg/ml / dextromethorphan hydrobromide 2 mg/ml / pseudoephedrine hydrochloride 6 mg/ml oral solution (1 source) alpha-Adrenergic Agonist, Uncompetitive C-pqlgmi-U-asparta te Receptor Antagonist, Sigma-1 Agonist Start: 12-16-2021 End: 12-25-2021 take 10 mL by mouth every six hours as needed brompheniramine/pse udoephedrine/dextro methorphan [id number]/5 mL oral syrup ; 10 milliliter(s) orally every 6 hours, As Needed for cough/congestion Quantity: 400 Refills: 0 Ordered: 16-Dec-2021 Delia Buckley Start: 16-Dec-2021 End: 25-Dec-2021 Generic Substitution Allowed Comments: May cause drowsiness. Alcohol may intensify this effect. Use care when operating dangerous machinery.Obtain medical advice before taking any non-prescription drugs as some may affect the action of this medication. Comment on above: May cause drowsiness . Alcohol may intensify this effect. Use care when operating dangerous machinery.Obtain medical advice before taking any non-prescription drugs as some may affect the action of this medication. sugar-free cholestyramine resin 4000 mg powder for oral suspension (20 sources) Bile Acid Sequestrant Start: 02-24-2025 End: 02-24-2025 take 4 g by mouth once daily Cholestyramine Light 4 gram oral powder ; 4 gram daily for 0 days Quantity: 693 {Gram} Refills: 3 Ordered: 24-Feb-2025 CATHY Buckley Start: 24-Feb-2025 Comments: Mail order. Start: 09-04-2022 End: 03-20-2024 Cholestyramine Light 4 gram powder for susp in a packet ; 1 (one) Packet daily for 0 days Quantity: 90 {Packet} Refills: 1 Ordered: 20-Mar-2024 CATHY Buckley Start: 04-Sep-2022 End: 20-Mar-2024 Status: Inactive Start: 04-24-2021 Prevalite 4 gr am PwPk 1 packet daily with breakfast . 0 04/24/2021 Active cholestyramine 4 g/5 g oral powder for reconstitution ; 1 orally 5 MG PACK DAILY Quantity: 0 Refills: 0 Ordered: 16-Dec-2021 Alejo Foster Generic Substitution Allowed Comment on above: Mail order. Mail order. 3 cans o f 231grams each ubidecarenone 75 mg oral capsule (20 sources) Start: 09-19-2020 Coenzyme Q10 75 mg capsule Active 75 mg PO DAILY September 19, 2020 1:00am coenzyme Q10 30 mg capsule Take 30 mg by mouth. Active take 1 capsule by mouth once shy ly CoQ10 100 MG Oral Capsule ; 1 daily (100 MG) Status: Inactive take 1 capsule by mouth three ti mes daily co-enzyme Q-10 30 mg capsule Take 30 mg by mouth 3 (three) times a day . 0 Active cyclobenzaprine hydrochloride 10 mg oral tablet (1 source) Muscle Relaxant Start: 07-03-2021 End: 07-13-2021 take 1 tablet by mouth three times daily as needed for muscle spasms cyclobenzaprine (FLEXERIL) 10 MG tablet Take 1 (one) tablet (10 mg total) by mouth 3 (three) times a day as needed for muscle spasms . 30 tablet 0 07/03/2021 07/13/2021 Active estradiol 0.1 mg/ml vaginal cream (5 sources) Estrogen Start: 01-20-2024 estradiol (ESTRACE) 0.01 % (0.1 mg/gram) vaginal cream APPLY 1 APPLICATION IN THE VAGINA 2 TIMES WEEKLY 01/20/2024 Active ezetimibe 10 mg oral tablet (20 sources) Dietary Cholesterol Absorption Inhibitor Start: 11-10-2018 End: 04-24-2021 ezetimibe 10 mg tablet ; 1 (one) Tablet daily for 0 days Quantity: 90 {Tablet} Refills: 0 Ordered: 26-Jan-2025 MD Cristina Mercado Start: 26-Jan-2025 Comments: Mail order. Comment on above: Mail order. magnesium oxide 250 mg oral tablet (10 sources) Start: 06-28-2020 take 1 tablet by mouth once daily Magnesium Oxide 250 MG tablet Active 250 mg PO DAILY June 28, 2020 1:00am magnesium oxide (MAG-OX) 400 mg (241.3 mg magnesium) tablet Take 200 mg by mouth. Active meloxicam 15 mg oral tablet (20 sources) Nonsteroidal Anti-inflammatory Drug Start: 02-24-2024 End: 02-22-2025 take 1 tablet by mouth once daily at mealtime meloxicam (MOBIC) 15 mg tablet TAKE 1 TABLET BY MOUTH EVERY MORNING WITH FOOD 02/24/2024 Active Start: 07-19-2020 End: 06-12-2021 meloxicam 15 mg tablet ; 1 ( one) tablet qam with food for 0 days Quantity: 30 {Tablet} Refills: 0 Ordered: 24-Feb-2024 CATHY Buckley Start: 24-Feb-2024 multivitamin (THERAGRAN) per tablet (4 sources) take 1 tablet by tatum th once daily multivitamin (THERAGRAN) per tablet Take 1 tablet by mouth daily . 0 Active multivitamin tablet (5 sources) take 1 tablet by tatum th once daily multivitamin tablet Take 1 tablet by mouth once daily. Active take 1 tablet by mouth once yogesh y multivitamin tablet Take 1 tablet by mouth once daily. 0 Active pantoprazole 20 mg delayed release oral tablet (3 sources) Proton Pump Inhibitor Start: 07-04-2021 End: 08-03-2021 take 1 tablet by mouth once daily pantoprazole (PROTONIX) 20 MG tablet Take 1 (one) tablet (20 mg total) by mouth daily Start: 07/04/21. 30 tablet 0 07/04/2021 Active pravastatin sodium 40 mg oral tablet (20 sources) HMG-CoA Reductase Inhibitor Start: 10-29-2017 End: 08-05-2018 pravastatin (PRAVACHOL) 40 mg tablet 10/29/2017 Active sulfamethoxazole 400 mg / trimethoprim 80 mg oral tablet (1 source) Dihydrofolate Reductase Inhibitor Antibacterial, Sulfonamide Antimicrobial Start: 07-03-2021 End: 07-13-2021 take 1 tablet by mouth twice daily sulfamethoxazole- trimethoprim (Bactrim) 400-80 mg per tablet Take 1 (one) tablet by mouth 2 (two) times a day for 10 days . 20 tablet 0 07/03/2021 07/13/2021 Active Zinc (2 sources) Start: 09-19-2020 Zinc 50 mg tablet Active 25 mg PO DAILY September 19, 2020 10:11am Start: 06-28-2020 End: 09-19-2020 take 1 tablet by mouth once daily Zinc 50 MG tablet Discontinued 50 mg PO DAILY June 28, 2020 1:00am September 19, 2020 10:12am Completed/Discontinued Medications Medication Drug Class(es) Dates Sig (Normalized) Sig (Original) acetaminophen 325 mg / oxyCODONE hydrochloride 5 mg oral tablet (1 source) Opioid Agonist Start: 07-06-2020 End: 07-11-2020 take 1-2 tablets by mouth every six hours as needed for pain Oxycodone-Acetamin ophen 1 TABLET tablet Discontinued 1 - 2 {tbl} PO EVERY 6 HOURS NEEDED as needed for Pain 20 01July 06, 2020 July 10, 2020 1:00am July 11, 2020 1:02am stop all other narcotics and tylenol products [id number] 200 actuat albuterol 0.09 mg/actuat metered dose inhaler (20 sources) beta2-Adrenergic Agonist Start: 06-28-2017 End: 06-30-2018 take 2 puff(s) by inhalation four times daily Ventolin HFA 108 (90 Base) MCG/ACT Inhalation Aerosol Solution ; 2 (two) puff(s) puff(s) four times daily for 0 days Quantity: 1 {Inhaler} Refills: 0 Ordered: 30-Jun-2018 Start: 28-Jun-2017 End: 30-Jun-2018 Status: Inactive amoxicillin 875 mg oral tablet (20 sources) Penicillin-class Antibacterial Start: 06-22-2024 End: 02-22-2025 amoxicillin 875 mg tablet ; 1 (one) tablet bid for 0 days Quantity: 20 {Tablet} Refills: 0 Ordered: 22-Feb-2025 CATHY Buckley Start: 22-Jun-2024 End: 22-Feb-2025 Status: Inactive Start: 05-13-2023 End: 05-31-2023 amoxicillin 875 mg tablet ; 1 (one) tablet bid for 0 days Quantity: 20 {Tablet} Refills: 0 Ordered: 31-May-2023 CATHY Rosenbaum Marsha Start: 13-May-2023 End: 31-May-2023 Status: Inactive amoxicillin 875 mg / clavulanate 125 mg oral tablet (20 sources) Penicillin-class Antibacterial Start: 08-16-2023 End: 08-26-2023 amoxicillin 875 mg-potassium clavulanate 125 mg tablet ; 1 (one) tablet two times daily for 10 days Quantity: 20 {Tablet} Refills: 0 Ordered: 16-Aug-2023 SUDHA Smith Start: 16-Aug-2023 End: 26-Aug-2023 Status: Inactive Start: 10-25-2022 End: 11-03-2022 take 1 tablet by mouth twice daily at mealtime amoxicillin-clavulanate 875 mg-125 mg oral tablet ; 875 milligram(s) orally 2 times a day Quantity: 20 Refills: 0 Ordered: 25-Oct-2022 Brennen Lang Start: 25-Oct-2022 End: 03-Nov-2022 Generic Substitution Allowed Comments: Finish all this medication unless otherwise directed by prescriber.Take with food or milk. Start: 12-16-2021 End: 12-22-2021 take 1 tablet by mouth twice daily at mealtime amoxicillin-clavulanate 875 mg-125 mg oral tablet ; 1 tab(s) orally 2 times a day x 7 days . Take with food. Quantity: 14 Refills: 0 Ordered: 16-Dec-2021 Delia Buckley Start: 16-Dec-2021 End: 22-Dec-2021 Generic Substitution Allowed Comments: Finish all this medication unless otherwise directed by prescriber.Take with food or milk. Start: 06-30-2018 End: 07-10-2018 take 1 tablet by mouth twice daily at mealtime Augmentin 875-125 MG Oral Tablet ; 1 Tab two times daily for 10 days Quantity: 20 {Tablet} Refills: 0 Ordered: 30-Jun-2018 SUDHA Conner Start: 30-Jun-2018 End: 10-Jul-2018 Status: Inactive Comments: Take with food Comment on above: Finish all this medi cation unless otherwise directed by prescriber.Take with food or milk. Take with food azithromycin 250 mg oral tablet (20 sources) Macrolide Antimicrobial Start: 06-13-2017 End: 03-13-2018 Zithromax Z-Naina 250 MG Oral Tablet ; 2 (two) Tabs day one, then one daily for 4 days for 0 days Quantity: 1 {Package} Refills: 0 Ordered: 13-Mar-2018 CATHY Buckley Start: 13-Jun-2017 End: 13-Mar-2018 Status: Inactive Start: 08-16-2012 End: 08-19-2012 take 1 tablet by mouth once daily ZITHROMAX TRI-NAINA, 500MG (Oral Tablet) ; 1 (one) Tablet daily for 3 days Quantity: 3 {Tablet} Refills: 0 Ordered: 16-Aug-2012 CATHY Mathias Start: 16-Aug-2012 End: 19-Aug-2012 Status: Inactive breath-actuated 120 actuat beclomethasone dipropionate 0.08 mg/actuat metered dose inhaler (20 sources) Corticosteroid Start: 02-03-2020 End: 04-24-2021 Qvar RediHaler 80 MCG/ACT Inhalation Aerosol Breath Activated ; 2 (two) Puffs 30 min before exercise for 0 days Quantity: 1 {Inhaler} Refills: 5 Ordered: 24-Apr-2021 CATHY Buckley Start: 03-Feb-2020 End: 24-Apr-2021 Status: Inactive Start: 11-10-2018 QVAR REDIHALER 80 mcg/actuation inhaler 11/10/2018 Active Start: 11-10-2018 QVAR REDIHALER 80 mcg/actuation inhaler 0 11/10/2018 Active Calcium Citrate / Cholecalciferol (20 sources) Vitamin D Citracal + D Sta tus: Inactive cephalexin 500 mg oral capsule (20 sources) Cephalosporin Antibacterial Start: End: take 2 capsules by mouth twice daily Cephalexin 500 MG Oral Capsule ; 2 (two) Capsule bid for 10 days Quantity: 40 {Capsule} Refills: 0 Ordered: 13-Jul-2019 MD Thaddeus Caldwell Start: 13-Jul-2019 End: 23-Jul-2019 Status: Inactive ciprofloxacin 750 mg oral tablet (20 sources) Quinolone Antimicrobial Start: 023 End: ciprofloxacin 750 mg tablet ; 1 (one) Tablet bid for 0 days Quantity: 20 {Tablet} Refills: 0 Ordered: 13-May-2023 CATHY Buckley Start: 03-Dec-2022 End: 13-May-2023 Status: Inactive codeine phosphate 2 mg/ml / promethazine hydrochloride 1.25 mg/ml oral solution (20 sources) Opioid Agonist, Phenothiazine Start: End: Promethazine-Codeine 6.25-10 MG/5ML Oral Syrup ; 1-2 teaspoon(s) four times daily, as needed for 0 days Quantity: 180 {Milliliter} Refills: 0 Ordered: 26-Nov-2016 CATHY Buckley Start: 26-Sep-2016 End: 26-Nov-2016 Status: Inactive Comments: Medication taken as needed. may cause drowsiness Comment on above: Medication taken as needed. may cause drowsiness doxycycline hyclate 100 mg oral capsule (20 sources) Tetracycline-class Drug Start: End: take 1 capsule by mouth twice daily Doxycycline Hyclate 100 MG Oral Capsule ; 1 (one) Cap two times daily for 10 days Quantity: 20 {Capsule} Refills: 0 Ordered: 28-Jun-2017 CATHY Londono Start: 28-Jun-2017 End: 08-Jul-2017 Status: Inactive esomeprazole 20 mg / naproxen 500 mg delayed release oral tablet (20 sources) Proton Pump Inhibitor, Nonsteroidal Anti-inflammatory Drug take 1 tablet by mouth once daily Vimovo 500-20 MG Oral Tablet Delayed Release ; 1 daily (500-20 MG) Status: Inactive Comments: Basali Comment on above: Basali ezetimibe 10 mg / simvastatin 10 mg oral tablet (5 sources) HMG-CoA Reductase Inhibitor, Dietary Cholesterol Absorption Inhibitor End: take 1 tablet by mouth once daily ezetimibe-simvastati n (VYTORIN) 10-10 mg per tablet Take 1 tablet by mouth nightly . 0 06/12/2021 Discontinued Fish Oils (20 sources) Fish Oil 1000 MG Oral Capsule ; (1000 MG) Status: Inactive fluorescein sodium 2.5 mg/ml / proparacaine hydrochloride 5 mg/ml ophthalmic solution (2 sources) Diagnostic Dye, Local Anesthetic Start: 025 End: fluorescein-proparac grecia 1 Drop eye drops Start: 10-13-2024 End: 10-13-2024 1 Drop, BOTH EYES, ONCE, 1 d ose, On Sat10/13/24 at 0830, FOR THE EYE. REFRIGERATE ibuprofen 200 mg oral tablet (1 source) Nonsteroidal Anti-inflammatory Drug Start: 06-28-2020 End: 08-15-2020 Ibuprofen 200 MG tablet Discontinued 200 mg PO NEEDED as needed for Pain 1-10 Or Fever June 28, 2020 1:00am August 15, 2020 10:02am levoFLOXacin 500 mg oral tablet (20 sources) Quinolone Antimicrobial Start: 12-02-2013 End: 12-12-2013 take 1 tablet by mouth once daily LEVAQUIN, 500MG (Oral Tablet) ; 1 Tab daily for 10 days Quantity: 10 {Tablet} Refills: 0 Ordered: 02-Dec-2013 SUDHA Conner Start: 02-Dec-2013 End: 12-Dec-2013 Status: Inactive magnesium citrate 58.2 mg/ml oral solution (5 sources) End: 06-15-2021 take 296 mL by mouth once magnesium citrate solution Take 296 mL by mouth once . 0 06/15/2021 Discontinued methylPREDNISolone (20 sources) Corticosteroid Start: 05-31-2023 End: 01-01-2024 methylPREDNISolone 4 mg tablets in a dose pack ; 1 (one) tablet daily taper for 0 days Quantity: 1 {Packet} Refills: 0 Ordered: 01-Jan-2024 CATHY Buckley Start: 31-May-2023 End: 01-Jan-2024 Status: Inactive Start: 05-31-2023 methylPREDNISo lone 4 mg tablets in a dose pack ; 1 (one) tablet daily taper for 0 days Quantity: 1 {Packet} Refills: 0 Ordered: 31-May-2023 MD Cristina Mercado Start: 31-May-2023 Start: 08-15-2020 End: 09-19-2020 take 1 tablet by mouth once Methylprednisolone (Medrol (Naina)) 4 mg tablets,dose pack Discontinued 0 PO per package directions August 15, 2020 1:00am September 19, 2020 10:12am PO PER PKG DIR microfibrillar collagen powd er (5 sources) End: 06-12-2021 microfibrillar collagen powd er Apply 1 g topically as needed . 0 06/12/2021 Discontinued microfibrillar c ollagen powder Apply 1 g topically as needed . 0 Active Multiple Vitamin Oral Tablet (20 sources) Multiple Vitamin Oral Tablet Status: Inactive Multivitamin 1 EACH tablet (1 source) Start: End: Multivitamin 1 EACH tablet Discontinued 1 NMA PO DAILY June 28, 2020 1:00am August 15, 2020 10:02am oxyCODONE hydrochloride 5 mg oral tablet (2 sources) Opioid Agonist Start: End: take 1 tablet by mouth every four hours as needed for pain oxyCODONE (Roxicodone) 5 MG immediate release tablet Indications: S/P total knee replacement not using cement, right Take 1 (one) tablet (5 mg total) by mouth every 4 (four) hours as needed for pain . 40 tablet 0 07/12/2021 07/19/2021 prednisoLONE acetate 10 mg/ml ophthalmic suspension (3 sources) Corticosteroid Start: 025 End: prednisoLONE acetate (PRED FORTE) 1 % ophthalmic suspension Use 1 Drop in both eyes four times daily. 10 mL 09/28/2024 03/22/2025 Discontinued (Course of therapy completed) predniSONE 20 mg oral tablet (20 sources) Start: 011 End: 012 take 3 tablets by mouth once daily, then take 2 tablets by mouth once daily, then take 1 tablet by mouth once daily, then take 0.5 tablet by mouth once daily PREDNISONE, 20MG (Oral Tablet) ; 1 Tablet as directed below for 0 days Quantity: 20 {Tablet} Refills: 0 Ordered: 26-Dec-2011 CATHY Buckley Start: 03-May-2011 End: 26-Dec-2011 Status: Inactive Comments: Take 3tabs qd for 3 days thenTake 2tabs qd for 3 days thenTake 1tab qd for 3 days thenTake 1/2tab qd for 4 days. Comment on above: Take 3tabs qd for 3 days thenTake 2tabs qd for 3 days thenTake 1tab qd for 3 days thenTake 1/2tab qd for 4 days. 1 ml triamcinolone acetonide 40 mg/ml injection (1 source) Corticosteroid Start: End: triamcinolone acetonide (KENALOG-40) injection 40 mg tropicamide 10 mg/ml ophthalmic solution (5 sources) Anticholinergic Start: End: tropicamide 1 % 1 drop (MYDRIACYL) Start: 03-22-2025 End: 03-22-2025 1 drop, BOTH EYES, ONCE, 1 d ose, On Sat03/22/25 at 1530, FOR THE EYE Start: 03-03-2024 End: 03-03-2024 tropicamide 1 % 1 Drop (MYDR IACYL) Start: 11-20-2021 End: 11-20-2021 tropicamide 0.5 % 1 Drop (MY DRIACYL) Problems Active Problems Problem Classification Problem Date Documented Da te Episodic/Chronic Acute bronchitis (20 sources) Acute bronchitis; Translations: [Acute bronchitis, unspecified] 06-22-2024 Episodic Cataract (20 sources) Immature cataract; Translations: [Unspecified cataract] 05-31-2023 Chronic Chronic obstructive pulmonary disease and bronchiectasis (20 sources) Bronchitis; Translations: [Bronchitis, not specified as acute or chronic] 07-13-2019 Episodic Diseases of mouth; excluding dental (20 sources) Aphthous ulcer of mouth; Translations: [Recurrent oral aphthae] 05-31-2023 Episodic Disorders of lipid metabolism (20 sources) Hyperlipidemia; Translations: [Hyperlipidemia, unspecified] Onset: 06-12-2021 06-12-2021 Chronic Comment on above: ran out of med in and did not refill or call for refill Essential hypertension (2 sources) Hypertensive disorder; Translations: [Essential (primary) hypertension] Chronic Headache; including migraine (1 source) Headache; including migraine; Translations: [Headache, unspecified] Onset: 10-25-2022 Immunizations and screening for infectious disease (20 sources) Requires varicella vaccination; Translations: [Encounter for immunization] 03-14-2018 Episodic Inflammation; infection of eye (except that caused by tuberculosis or sexually transmitteddisease) (2 sources) Bilateral episcleritis of eyes; Translations: [Unspecified episcleritis, bilateral] 09-28-2024 Episodic Influenza (20 sources) Influenza; Translations: [Influenza due to unidentified influenza virus with other respiratory manifestations] 09-26-2016 Episodic Joint disorders and dislocations; trauma-related (11 sources) Chondromalacia; Translations: [Chondromalacia patellae, right knee] Onset: 04-13-2021 Chronic Menopausal disorders (1 source) Postmenopausal bleeding; Translations: [Postmenopausal bleeding] 04-29-2024 Chronic Comment on above: EMB negative. Will m onitor for now. Nonspecific chest pain (20 sources) Atypical chest pain; Translations: [Other chest pain] 05-31-2023 Episodic Osteoarthritis (1 source) Arthritis of right knee; Translations: [Unilateral primary osteoarthritis, right knee] Chronic Other aftercare (20 sources) H/O: high risk medication; Translations: [Other retirement (current) drug therapy] 05-31-2023 Episodic Other bone disease and musculoskeletal deformities (1 source) Chondromalacia; Translations: [Chondromalacia of patellofemoral joint, right] Episodic Other connective tissue disease (3 sources) History of total knee arthroplasty; Translations: [Presence of right artificial knee joint] Chronic Other ear and sense organ disorders (20 sources) Bilateral earache; Translations: [Otalgia, bilateral] 12-26-2011 Episodic Other eye disorders (7 sources) Bilateral vitreous floaters; Translations: [Other vitreous opacities, bilateral] Onset: 11-18-2017 11-18-2017 Chronic Other eye disorders (2 sources) Bilateral pinguecula of eyes; Translations: [Pinguecula, bilateral] 09-28-2024 Episodic Other lower respiratory disease (20 sources) Dyspnea on exertion; Translations: [Other forms of dyspnea] 05-31-2023 Episodic Other non-traumatic joint disorders (20 sources) Shoulder pain; Translations: [Pain in left shoulder] 04-11-2016 Episodic Other non-traumatic joint disorders (20 sources) Pain in right shoulder; Translations: [Pain in joint, shoulder region] 02-24-2024 Episodic Other non-traumatic joint disorders (5 sources) Pain in left shoulder; Translations: [Pain in joint, shoulder region] 04-11-2016 Episodic Other nutritional; endocrine; and metabolic disorders (20 sources) Overweight in adulthood with body mass index of 25 or more but less than 30; Translations: [Body mass index (BMI) 29.0-29.9, adult] 05-31-2023 Episodic Other screening for suspected conditions (not mental disorders or infectious disease) (2 sources) Endometrium thickened; Translations: [Abnormal findings on diagnostic imaging of other specified body structures] Onset: 02-04-2025 04-28-2024 Chronic Comment on above: 10mm/[facility] at [facility]/scanned Other screening for suspected conditions (not mental disorders or infectious disease) (20 sources) Screening status; Translations: [Encounter for screening for diabetes mellitus] 10-19-2019 Episodic Other upper respiratory disease (1 source) Nasal congestion; Translations: [Nasal congestion] Onset: 10-25-2022 Episodic Other upper respiratory disease (20 sources) Vocal cord dysfunction; Translations: [Other diseases of vocal cords] 05-31-2023 Episodic Other upper respiratory infections (20 sources) Sinusitis; Translations: [Chronic sinusitis, unspecified] 08-17-2012 Chronic Other upper respiratory infections (20 sources) Acute upper respiratory infection; Translations: [Acute upper respiratory infections of unspecified site] Onset: 12-16-2021 12-16-2021 Episodic Otitis media and related conditions (20 sources) Dysfunction of Eustachian tube 12-26-2011 Episodic Residual codes; unclassified (20 sources) History of vaccination; Translations: [Personal history of other drug therapy] 05-31-2023 Episodic Residual codes; unclassified (20 sources) Up-to-date with immunizations; Translations: [Personal history of other drug therapy] 05-31-2023 Episodic Residual codes; unclassified (20 sources) Non-smoker; Translations: [Other specified health status] 05-31-2023 Episodic Residual codes; unclassified (20 sources) Patient refused laboratory test; Translations: [Procedure and treatment not carried out because of patient's decision for other reasons] 05-31-2023 Episodic Spondylosis; intervertebral disc disorders; other back problems (20 sources) Nerve root disorder; Translations: [Radiculopathy, site unspecified] 04-11-2016 Episodic Syncope (20 sources) Abnormal vasomotor function; Translations: [Syncope and collapse] 05-31-2023 Episodic Unclassified (2 sources) COUGH, SORE THROAT, RUNNY NOSE 04-23-2022 Comment on above: COUGH, SORE THROAT, RUNNY NOSE Unclassified (1 source) Acute URI 12-16-2021 Unclassified (2 sources) SINUS PAIN 10-25-2022 Comment on above: SINUS PAIN Unclassified (1 source) Cough, unspecified; Translations: [Cough, unspecified] Onset: 12-16-2021 Unclassified (20 sources) Number of Children 04-24-2021 Comment on above: 2. Unclassified (20 sources) Number of Pregnancies 04-24-2021 Comment on above: 2. Unclassified (20 sources) Vaginal deliveries 04-24-2021 Comment on above: 2. Unclassified (20 sources) Well adult female - The patient feels well with minor complaints, has good energy level and is sleeping well. The patient takes no supplemental vitamins & iron. The patient exercises weekly. The patient sleeps 7 hours per night. 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 10-30-2019 Unclassified (2 sources) Well adult female - The patient feels well with no complaints, has good energy level and is sleeping well. The patient has a balanced diet. The patient exercises daily (rides her bike). The patient sleeps 8 hours per night. Note for "Well adult female": -Last summer she had a slightly abnormal mammogram ordered by [facility]. She had follow up testing and all is well and she will follow up there.She consulted the [facility] about postmenopausal bleeding and was referred to [facility] for endometrial bx. She just had a six month follow up. Seeing Dr Khan for her shoulder and has had 3 injections. Next step is surgery. She has adjusted her diet and is mostly vegan. 02-24-2025 Past or Other Problems Problem Classification Problem Date Documented Date Episodic/Chronic Blindness and vision defects (20 sources) Bilateral myopia of eyes; Translations: [Myopia, bilateral] Onset: 12-12-2015 Episodic Other connective tissue disease (1 source) Pain in right thigh; Translations: [Pain in right thigh] Onset: 11-13-2023 Episodic Sprains and strains (3 sources) Strain of muscle, fascia and tendon of the posterior muscle group at thigh level, right thigh, initial encounter; Translations: [Strain of muscle, fascia and tendon of the posterior muscle group at thigh level, right thigh, initial encounter] Onset: 11-13-2023 Episodic Unclassified (20 sources) Cold Symptoms - Symptoms include nasal congestion, runny nose, sore throat, hoarseness, dry cough and headache, but do not include ear pain, productive cough, wheezing, fever, chills or general malaise. The onset was gradual 10 day(s) ago. The symptoms occur constantly. The patient describes this as moderate in severity and worsening. Current treatment includes non-prescription cold medication, allergy medications and home remedies. The patient has been exposed to an individual with similar symptoms (family members). Patient denies history of seasonal allergies, recurrent sinusitis, recurrent strep pharyngitis, tonsillectomy or recurrent ear infections. Note for Upper respiratory infection": Pt had COVID July 24 - reports that her symptoms of this resolved completely before her new symptoms started. 08-16-2023 Unclassified (20 sources) Mouth pain - Symptoms include sore tongue and mouth lesions, while symptoms do not include loss of taste or facial swelling. Symptoms are located in the tongue (and lips). There is no radiation. The patient describes the pain as dull (burning). Onset was gradual 1 week(s) ago. Onset followed none (was on antibiotic 05/13). The symptoms occur frequently. The patient describes this as mild and unchanged. Symptoms are exacerbated by abrasive foods. Symptoms are not relieved by salt water rinse. Associated symptoms do not include fever, headache, sore throat or swollen glands. 05-31-2023 Unclassified (20 sources) Cold Symptoms - Symptoms include nasal congestion, runny nose, ear fullness, scratchy throat, dry cough, productive cough, general malaise, headache and facial pain, but do not include fever. The onset was gradual 4 week(s) ago. The symptoms occur constantly. The patient describes this as moderate in severity and worsening. Current treatment includes non-prescription cold medication (has tried "everything"). Risk factors do not include smoking. Note for "Upper respiratory infection": -Similar sx in September and went to Urgent Care on 10/25. Given a course of augmentin and got better. Has done 2 covid tests and they were negative.Similar sx in November and given cipro.She did a covid test and it was negative. 05-13-2023 Unclassified (20 sources) Cold Symptoms - Symptoms include sneezing, nasal congestion, runny nose, ear fullness, scratchy throat, dry cough, productive cough, general malaise, headache and facial pain, but do not include fever. The onset was gradual 14 day(s) ago. The symptoms occur constantly. The patient describes this as moderate in severity and worsening. Current treatment includes non-prescription cold medication (has tried "everything"). Risk factors do not include smoking. Note for "Upper respiratory infection": -Similar sx in September and went to Urgent Care on 10/25. Given a course of augmentin and got better. Has done 2 covid tests and they were negative. 12-03-2022 Unclassified (20 sources) Well adult female - The patient feels well with minor complaints, has good energy level and is sleeping poorly (needs tylenol pm). The patient takes no supplemental vitamins & iron. The patient does not exercise. The patient sleeps 6 hours per night. Note for "Well adult female": -Knee pain not resoloving so is planning a TKR in [place] in June. 04-24-2021 Unclassified (20 sources) Cold Symptoms - Symptoms include nasal congestion, runny nose, scratchy throat (post-nasal drip) and dry cough, but do not include ear pain, sore throat, wheezing, fever, chills, general malaise, headache or facial pain. The onset was sudden 4 day(s) ago. The symptoms occur constantly. The patient describes this as moderate in severity and worsening. Current treatment includes non-prescription cold medication, rest and cough suppressants. Risk factors do not include child in daycare or smoking. The patient has not been exposed to an individual with a cough, an individual with an upper respiratory infection, an individual with similar symptoms, an individual with strep or secondhand smoke. Patient denies history of seasonal allergies, recurrent sinusitis, recurrent strep pharyngitis, asthma, tonsillectomy or recurrent ear infections. Note for Upper respiratory infection": Patient reports that she feels like there is "stuff" in her chest and that it hurts when she coughs. 10-17-2020 Unclassified (20 sources) Cold Symptoms - Symptoms include runny nose (occasionally), dry cough (mostly dry cough, at times will be productive. States that her chest hurts and feels short of breath with coughing), chills (last week had chills but unsure if she had fever or not) and general malaise. The onset was sudden 10 day(s) ago. The symptoms occur constantly. The patient describes this as moderate in severity and worsening. Current treatment includes non-prescription cold medication, allergy medications and acetaminophen. The patient has been exposed to an individual with an upper respiratory infection (grandchildren). Note for "Upper respiratory infection": reviewed by [facility] 07-13-2019 Unclassified (20 sources) Well adult female - The patient feels well with no complaints, has good energy level and is sleeping well. The patient takes no supplemental vitamins & iron. The patient exercises daily (5d week crossfit). The patient sleeps 7 hours per night. Note for "Well adult female": -Pravastatin causes leg cramps and she does not take regularly. 08-01-2018 Unclassified (20 sources) Cold Symptoms - Symptoms include sneezing, nasal congestion, runny nose, purulent discharge, ear fullness, sore throat, dry cough, chills, general malaise, headache and facial pain, but do not include ear pain or fever. The onset was gradual 1 month(s) ago. The symptoms occur constantly. The patient describes this as moderate in severity and unchanged. Current treatment includes non-prescription cold medication, increased fluid intake, cough suppressants and NSAIDs. Risk factors do not include smoking. The patient has been exposed to an individual with similar symptoms. Patient denies history of seasonal allergies, recurrent strep pharyngitis, asthma (patient denies, but chart notes exercise induced) or recurrent ear infections. 06-30-2018 Unclassified (20 sources) several questions - -1) Has questions about the SHingrix vaccine2) Increased shortness of breath with exertion. Feels it should have improved with her 18months of gym work and instead it is getting worse.3) She has night sweats and wonders if it is hormonal and if there is med for it. She has been in menopause for 5 years. 03-17-2018 Unclassified (20 sources) Cough - The onset of the cough has been gradual and has been occurring in a persistent pattern for 5 weeks. The course has been constant. The cough occurs all the time (and is productive). Associated symptoms include runny nose, while there is no dyspnea, fever, headache, nasal congestion or sore throat. Note for "Cough": Has been taking cough syrup. No history. 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 No SOB but has chest congestion.Would getting a little better at times but then symptoms would worsen.+ PND; clearing throat. 06-13-2017 Unclassified (20 sources) Cold Symptoms - Symptoms include nasal congestion, runny nose, ear pain, sore throat, scratchy throat, dry cough (hurts to cough; no wheezing or SOB) and headache, but do not include fever (didn't check - felt like she had the flu 1 day last week). The onset was gradual 3 day(s) ago. The symptoms occur constantly. The patient describes this as moderate in severity and worsening. Current treatment includes cough suppressants and an oral decongestant. Risk factors do not include child in daycare or smoking. The patient has been exposed to an individual with similar symptoms (grandkids), but has not been exposed to an individual with a cough, an individual with an upper respiratory infection or an individual with strep. 09-26-2016 Unclassified (20 sources) Well adult female - The patient feels well with no complaints, has good energy level and is sleeping well. The current method of contraception is: tubal ligation. The patient has a balanced diet and takes supplemental vitamins. The patient exercises daily. The patient sleeps 7 hours per night. 05-09-2016 Unclassified (20 sources) Shoulder pain - The onset of the shoulder pain has been sudden and has been occurring in a persistent pattern for 19 days. The pain is characterized as a moderate dull aching. The pain is described as being located in the left shoulder and is aggravated by any movement. There are no relieving factors. The symptoms have been associated with painful ROM and decreased ROM. Note for "Shoulder pain": -Had different shoulder/arm pain in 2012 that resulted in a negative shoulder workup and then an MRI of the c-spine and a visit with ortho in [place]. She has foraminal stenosis but the pain had subsided by the time she received a diagnosis and nothing more was done. She is here today to see if this is shoulder inflammation vs spinal stenosis symptoms. 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 It is too painful to stretch, she does not know where to put ice so she has not tried that. She has some relief with ibuprofen but doesnt like to take pills so has not taken much. 04-11-2016 Unclassified (20 sources) Cold Symptoms - Symptoms include nasal congestion, runny nose (drainage is green), purulent discharge, ear fullness and productive cough (phlegm is green), but do not include fever, headache or facial pain. The onset was gradual 3 week(s) ago (Had something similar in October - was treated with augmentin and levaquin; symptoms resolved for a few weeks.). The symptoms occur constantly. The patient describes this as moderate in severity and unchanged. Current treatment includes non-prescription cold medication (Has been through 3 bottles of cough syrup, mucinex, claritin). Patient denies history of seasonal allergies. Note for "Upper respiratory infection": Can't sleep at night because of the coughing. 01-20-2014 Unclassified (20 sources) Cold Symptoms - Symptoms include sneezing, nasal congestion, runny nose, purulent discharge, ear pain, hoarseness, dry cough (chest discomfort), general malaise, headache and facial pain, but do not include sore throat, fever or chills. The onset was gradual 5 day(s) ago. The symptoms occur constantly. The patient describes this as moderate in severity and worsening. Current treatment includes non-prescription cold medication (taylor seltzer) and NSAIDs. Risk factors do not include smoking. The patient has been exposed to an individual with an upper respiratory infection and an individual with similar symptoms. Medical history includes recurrent sinusitis, but patient denies history of seasonal allergies, recurrent strep pharyngitis, asthma, tonsillectomy or recurrent ear infections. 11-16-2013 Unclassified (20 sources) Cold Symptoms - Symptoms include sneezing, nasal congestion, runny nose, purulent discharge, ear pain, sore throat and dry cough. The onset was gradual 3 day(s) ago. The symptoms occur constantly. The patient describes this as moderate in severity and worsening. The patient is not currently being treated for this problem. 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 This note has been reviewed and approved in it's entirety by me. neymar any concerns. reviewed safe amount of advil or aleve to take prn. 06-30-2012 Unclassified (20 sources) Cold Symptoms - Symptoms include ear pain (bilateral) and sore throat, but do not include nasal congestion, dry cough or fever. The onset was gradual 2 week(s) ago. The symptoms occur constantly. The patient describes this as moderate in severity. Current treatment includes non-prescription cold medication (sudafed and ibuprofen). 12-26-2011 Unclassified (20 sources) Cold Symptoms - Symptoms include sneezing, nasal congestion, runny nose, purulent discharge, ear pain (right >left), sore throat, productive cough, general malaise, headache and facial pain, but do not include wheezing, fever or chills. The onset was gradual 6 day(s) ago. The symptoms occur constantly. The patient describes this as moderate in severity and worsening. Current treatment includes acetaminophen. The patient has been exposed to an individual with an upper respiratory infection. Medical History includes recurrent sinusitis ([id number] - multiple abx were used, finally a steroid taper resolved the problem)Patient denies history of seasonal allergies (has tried multiple PO and nasal antihistamines without relief in the past), asthma or recurrent ear infections. 05-03-2011 Unclassified (1 source) Well adult female - Note for "Well adult female": colonoscopy 05/2016mammo 11/2023 abnormal 02-24-2024 Unclassified (20 sources) Well adult female - The patient feels well with no complaints, has good energy level and is sleeping well. The patient has a balanced diet. The patient does not exercise. The patient sleeps 8 hours per night. Note for "Well adult female": colonoscopy 05/2016mammo 11/2023 abnormalpatient forgets to take the cholestyramine often 02-24-2024 Unclassified (11 sources) Cold Symptoms - Symptoms include nasal congestion, runny nose, ear fullness, sore throat, hoarseness, dry cough and general malaise. The onset was gradual 4 week(s) ago. The symptoms occur constantly. The patient describes this as moderate in severity and worsening. Current treatment includes non-prescription cold medication, allergy medications and home remedies. 06-22-2024 Unclassified (1 source) Well adult female - The patient feels well with no complaints, has good energy level and is sleeping well. The patient has a balanced diet. The patient does not exercise. The patient sleeps 8 hours per night. 02-24-2025 Results Test Name Value Interpretation Reference Range Facility MR/PATStacey 06-30-2025 MR/PAT.[facility] Medical Records Department [address] [place] [address] PAT - Anesthesia 06/30/25 0931 MR#: [id number] Acct: [id number] Name: BETTYE GOTTI Rep #: [id number] : 1960 65 From: Devaughn Pack MD PCP: Dr. Cristina Mercado MD Status:PRE SDC Y Race: C [place] [facility] [place] Diagnosis/Proposed Procedure Planned Operative Procedure(s): RIGHT ARTHROSCOPIC SUBCROMIAL DECOMPRESSION ROTATOR CUFF DEBRIDEMENT AND MINI OPEN BICEPS TENDINOSIS Anesthesia History Anesthesia History - sticker on: Anesthesia History - sticker on Hx Hospitalization No 06/23/25 13:02 Any Problems With Anesthesia No 06/23/25 13:02 Cholinesterase deficiency No 06/23/25 13:02 You/Your Family Experience No 06/23/25 13:02 fever (hyperthermia) with Relationship Recent Exposure to Contagious No 07/06/20 06:52 Disease Does patient have nerve No 06/23/25 13:02 stimulator Patient instructed to have device shut off --Does patient have Pacemaker or ICD? When Was Last Pacemaker Check QUESTION #4 FULL TEXT: You/Your Family Experience fever (hyperthermia) with Anesthesia Last Oral Intake Last Oral intake: Last Oral Intake NPO since Meds taken in AM with sips of water? Meds patient instructed to take am of surgery PONV PONV - sticker on: PONV - sticker on Female Yes 06/23/25 13:02 HX of Motion Sickness Yes 06/23/25 13:02 HX of N/V After Surgery No 06/23/25 13:02 Non-Smoker Yes 06/23/25 13:02 Duration of Surgery greater Yes 06/23/25 13:02 than 60 minutes Number of Risk Factors 4 06/23/25 13:02 PONV Score Severe Risk 06/23/25 13:02 Height Weight Height Weight: Anesthesia: Height Weight Height 5 ft 3.5 in 04/28/24 09:42 Respiratory Assessment Respiratory Assessment - sticker on: Respiratory Tract Infection Hx - sticker on Hx Respiratory Tract Infection No 06/23/25 13:02 STOP Sleep Apnea STOP Sleep Apnea - sticker on: STOP Sleep Apnea - sticker on Hx Hypertension No 06/23/25 13:02 Hx Sleep Apnea No 06/23/25 13:02 CPAP No 06/23/25 13:02 BIPAP Do you snore loudly (louder No 06/23/25 13:02 than talking or can be heard Do you often feel tired/ No 06/23/25 13:02 fatigued/ sleepy during daytime? Has anyone observed you stop No 06/23/25 13:02 breathing during sleep? STOP Results Negative 06/23/25 13:02 QUESTION #5 FULL TEXT : Do you snore loudly (louder than talking or can be heard through closed doors)? 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 Specify any problems Hx of Preganancy in last 3 No 06/23/25 13:02 Months Nurse Filling Out Transfusion DSCHRIBER 06/23/25 13:02 Questions: Date: 06/23/25 06/23/25 13:02 Time: 13:04 06/23/25 13:02 Patient unable to answer at this time (ie. confused, unrespo /Reproductio n History /Reproductiv e History - sticker on: /Reproductiv e Hx- sticker on Hx Now No 06/23/25 13:02 Gestational Age (in weeks): EDC: Hx Hx Para Hx Section SAB No 06/23/25 13:02 PFSH Medical History (Updated 06/23/25 @ 13:18 by Ernestina Boles) Wears contact lenses Wears glasses Post-menopausal Alcohol use Arthritis Migraine headache High cholesterol Non-smoker History of pain when walking History of edema Cardiology follow-up encounter Hx of fracture of ankle Home Medications ???Medication ???Instructions ???Recorded ???Last Taken ???Type ezetimibe 10 mg tablet 10 mg PO DAILY 01/08/19 Unknown Hi story coenzyme Q10 75 mg capsule 75 mg PO DAILY 09/19/20 Unknown Hi story cholestyramine 4 gram oral powder 4 g PO DAILY 06/23/25 Unknown His tory (Cholestyramine Light) estradiol 0.01% (0.1 mg/gram) 1 appful vaginal QWEEK 06/23/25 Un known History vaginal cream meloxicam 15 mg tablet 15 mg PO DAILY PRN pain 06/23/25 U nknown History multivitamin (Daily Multi-Vitamin 1 tab PO DAILY 06/23/25 U (more content not included)... Normal [facility] 12 Lead EKGon 06-29-2025 12 Lead EKG [facility] Cardiovascular Services [address] [place] [address] 12 Lead EKG 06/29/25 1432 MR#: [id number] Acct: [id number] Name: BETTYE GOTTI Rep #: [id number] : 1960 65 From: Felix Hoff MD Attending Dr: Dr. Luis Khan, Status: [place] [facility] [place]: Luis Khan DO Date: 06/29/25 [place] [facility] [place] Sex: F C Admitted: Test Reason : PREOP Blood Pressure : */* mmHG Vent. Rate : 72 BPM Atrial Rate : 72 BPM P-R Int : 132 ms QRS Dur : 72 ms QT Int : 384 ms P-R-T Axes : 57 11 -29 degrees QTcB Int : 420 ms Sinus rhythm with Premature supraventricular complexes Nonspecific ST and T wave abnormality Abnormal ECG Confirmed by Felix Hoff ([id number]), commissioning editor GEMMA NAVARRETE ([id number]) on 06/30/2025 7:17:21 AM Referred By: Luis Khan Confirmed By: Felix Hoff 06/30/25 0717 Date Felix Hoff MD CC: Dr. Cristina Mercado MD; Dr. Luis Khan DO Signed Normal [facility] Basic Metabolic Profile (BMP )on 06-29-2025 BUN/CRE 14.6 RATIO Normal 10-20 [facility] Comment on above: Performed By: #### L 500.2500, L100.0100 #### [facility] [address] [place], [address] Calcium [Mass/Vol] 9.3 mg/dL Normal 7.6-11.0 [facility] Comment on above: Performed By: #### L 500.2500, L100.0100 #### [facility] [address] [place], [address] Chloride [Moles/Vol] 106 mmol/L Normal 98-108 [facility] Comment on above: Performed By: #### L 500.2500, L100.0100 #### [facility] [address] [place], [address] CO2 [Moles/Vol] 27.0 mmol/L Normal 21.0-32.0 [facility] Comment on above: Performed By: #### L 500.2500, L100.0100 #### [facility] [address] [place], [address] Creatinine [Mass/Vol] 0.54 mg/dL Low 0.70-1.20 [facility] Comment on above: Performed By: #### L 500.2500, L100.0100 #### [facility] [address] [place], [address] GAP 9 Normal 5-15 [facility] Comment on above: Performed By: #### L 500.2500, L100.0100 #### [facility] [address] [place], [address] GFR/1.73 sq M.predicted among non-blacks MDRD (S/P/Bld) [Vol rate/Area] 102 mL/min/{1.73_m2} Normal >60 [facility] Comment on above: Result Comment: mL/m in/1.73m2 CKD-EPI Creatinine Equation (2020) Performed By: #### L 500.2500, L100.0100 #### [facility] [address] [place], [address] Glucose [Mass/Vol] 105 mg/dL High 70-99 [facility] Comment on above: Performed By: #### L 500.2500, L100.0100 #### [facility] [address] [place], [address] Potassium [Moles/Vol] 3.9 mmol/L Normal 3.3-5.1 [facility] Comment on above: Result Comment: Hemo lysis present, Results??could be affected. ?? Performed By: #### L 500.2500, L100.0100 #### [facility] [address] [place], [address] Sodium [Moles/Vol] 142 mmol/L Normal 133-145 [facility] Comment on above: Performed By: #### L 500.2500, L100.0100 #### [facility] [address] [place], [address] Urea nitrogen [Mass/Vol] 8 mg/dL Normal 4-19 [facility] Comment on above: Performed By: #### L 500.2500, L100.0100 #### [facility] [address] [place], [address] CBC W/Diff, Automatedon 11-0 -2024 Absolute Lymph 2.33 X10 3/uL Normal 0.83-4.51 [facility] Comment on above: Performed By: #### L 500.2500, L100.0100 #### [facility] [address] [place], [address] Absolute Neut 4.0 X10 3/uL Normal 2.0-7.7 [facility] Comment on above: Performed By: #### L 500.2500, L100.0100 #### [facility] [address] [place], [address] Basophils/100 WBC (Bld) 0.4 % Normal 0-1 [facility] Comment on above: Performed By: #### L 500.2500, L100.0100 #### [facility] [address] [place], [address] Eosinophils/100 WBC (Bld) 0.7 % Normal 0-5 [facility] Comment on above: Performed By: #### L 500.2500, L100.0100 #### [facility] [address] [place], [address] Erythrocyte distribution width (RBC) [Ratio] 12.4 % Normal 11.6-14.6 [facility] Comment on above: Performed By: #### L 500.2500, L100.0100 #### [facility] [address] [place], [address] Hematocrit (Bld) [Volume fraction] 41.2 % Normal 37-47 [facility] Comment on above: Performed By: #### L 500.2500, L100.0100 #### [facility] [address] [place], [address] Hemoglobin (Bld) [Mass/Vol] 14.0 g/dL Normal 12.0-15.0 [facility] Comment on above: Performed By: #### L 500.2500, L100.0100 #### [facility] [address] [place], [address] IG% 0.300 Normal 0.0-0.9 [facility] Comment on above: Result Comment: IG% - Immature Granulocytes (promyelocytes, myelocytes and metamyelocytes) > 1% indicates that a LEFT SHIFT is Present. Performed By: #### L 500.2500, L100.0100 #### [facility] [address] [place], [address] Lymphocytes/100 WBC (Bld) 33.0 % Normal 19-41 [facility] Comment on above: Performed By: #### L 500.2500, L100.0100 #### [facility] [address] [place], [address] MCH (RBC) [Entitic mass] 29.3 pg Normal 27.0-32.0 [facility] Comment on above: Performed By: #### L 500.2500, L100.0100 #### [facility] [address] [place], [address] MCHC (RBC) [Mass/Vol] 34.0 g/dL Normal 32-36 [facility] Comment on above: Performed By: #### L 500.2500, L100.0100 #### [facility] [address] [place], [address] MCV (RBC) [Entitic vol] 86.2 fL Normal 81-99 [facility] Comment on above: Performed By: #### L 500.2500, L100.0100 #### [facility] [address] [place], [address] Monocytes/100 WBC (Bld) 8.5 % Normal 0-10 [facility] Comment on above: Performed By: #### L 500.2500, L100.0100 #### [facility] [address] [place], [address] Neutrophils/100 WBC (Bld) 57.1 % Normal 47-70 [facility] Comment on above: Performed By: #### L 500.2500, L100.0100 #### [facility] [address] [place], [address] Nucleated RBC (Bld) [#/Vol] 0 10*3/uL Normal 0-5 [facility] Comment on above: Performed By: #### L 500.2500, L100.0100 #### [facility] [address] [place], [address] Platelet mean volume (Bld) [Entitic vol] 10.4 fL Normal 6.2-12.0 [facility] Comment on above: Performed By: #### L 500.2500, L100.0100 #### [facility] [address] [place], [address] Platelets (Bld) [#/Vol] 273 10*3/uL Normal 150-450 [facility] Comment on above: Performed By: #### L 500.2500, L100.0100 #### [facility] [address] [place], [address] RBC (Bld) [#/Vol] 4.78 10*6/uL Normal 4.2-5.4 [facility] Comment on above: Performed By: #### L 500.2500, L100.0100 #### [facility] [address] [place], [address] RDW SD 39.3 fl Normal 35.1-43.9 [facility] Comment on above: Performed By: #### L 500.2500, L100.0100 #### [facility] [address] [place], [address] WBC (Bld) [#/Vol] 7.1 10*3/uL Normal 4.4-11.0 [facility] Comment on above: Performed By: #### L 500.2500, L100.0100 #### [facility] [address] [place], [address] Pelvic w/ Transvaginalon Pelvic w/ Transvaginal [facility] Imaging Services [address] [place] [address] Pelvic w/ Transvaginal MR#: [id number] Acct: [id number] Name: BETTYE GOTTI Rep #: [id number] : 1960 F 64 From: Sky pretty MD PCP: Dr. Cristina Mercado MD Status: REG CLI Study: Pelvic w/ Transvaginal Date of Exam: 02/01/25 Exam# [id number] Ordering Dr: Kamilla Calvo PIPING MANAGER PIPING MANAGER -C PROCEDURE: PELVIC W/ TRANSVAGINAL REASON FOR EXAM: OVARIAN CYST, ENDOMETRIUM TECHNIQUE: Transabdominal and transvaginal pelvic ultrasound COMPARISON: Prior study dated July 28, 2024. FINDINGS: Measurements: Uterus: 10.1 cm x 5.1 cm x 3 cm with a volume of 80.5 mL Endometrial Thickness: 7.8 mm. This is thickened for postmenopausal state. Multiple cystic structures are seen within the endometrium. Right Ovary: 1.7 cm x 1.4 cm x 1.3 cm with a volume of 1.54 mL. Left Ovary: 1.8 cm x 1 cm x 1.3 cm with a volume of 1.13 mL. TRANSABDOMINAL: Uterus: There is a 2.6 cm 2.6 cm 2.5 cm fundal fibroid. Endometrium: The endometrium is thickened. It is hyperechoic. Multiple cystic changes are seen within it. The largest measures 8 mm x 4 mm x 4 mm. Right ovary: Normal size and echotexture. Left ovary: Small left ovarian follicle. Other: No large pelvic mass identified. Transvaginal sonography was performed to better visualize the endometrium. TRANSVAGINAL: Uterus: Anteverted. Fundal fibroid. Endometrium: Endometrial thickening with multiple small cystic structures within it. Right ovary: Normal size and echotexture. Left ovary: Small left ovarian follicle. Other adnexal findings: None. Cul-de-sac: No free intraperitoneal fluid identified. Tenderness: No tenderness US/Pelvic w/ Transvaginal IMPRESSION: Endometrial thickening with cystic structures within the endometrium. Small left ovarian follicle. Reading Location: [place] [address] CC: BARB Calvo; Dr. Cristina Mercado MD Front End Specialist: Signed Normal [facility] COMPREHENSIVE METABOLIC PANE [place] 12-19-2024 Albumin [Mass/Vol] 4.6 g/dL Normal 3.6-5.1 [facility] Comment on above: Performed By: #### 7 600, 24519 #### [facility] [address], [address] [place] [address] Teacher Resource: Khai Aguirre MD Albumin/Globulin [Mass ratio] 2.1 {ratio} Normal 1.0-2.5 [facility] Comment on above: Performed By: #### 7 600, 53249 #### [facility] [place] [address] Teacher Resource: Khai Aguirre MD ALP [Catalytic activity/Vol] 68 U/L Normal 37-153 [facility] Comment on above: Performed By: #### 7 600, 78615 #### [facility] [place] [address] Teacher Resource: Khai Aguirre MD ALT [Catalytic activity/Vol] 18 U/L Normal 6-29 [facility] Comment on above: Performed By: #### 7 600, 82895 #### [facility] [place] [address] Teacher Resource: Khai Aguirre MD AST [Catalytic activity/Vol] 20 U/L Normal 10-35 [facility] Comment on above: Performed By: #### 7 600, 25397 #### [facility] [place] [address] Teacher Resource: Khai Aguirre MD Bilirubin [Mass/Vol] 0.7 mg/dL Normal 0.2-1.2 [facility] Comment on above: Performed By: #### 7 600, 02637 #### [facility] of [address], [address] [place] [address] Teacher Resource: Khai Aguirre MD Calcium [Mass/Vol] 9.5 mg/dL Normal 8.6-10.4 [facility] Comment on above: Performed By: #### 7 600, 31854 #### [facility] of [address], [address] [place] [address] Teacher Resource: Khai Aguirre MD Chloride [Moles/Vol] 105 mmol/L Normal 98-110 [facility] Comment on above: Performed By: #### 7 600, 73593 #### [facility] of [address], [address] [place] [address] Teacher Resource: Khai Aguirre MD CO2 [Moles/Vol] 27 mmol/L Normal 20-32 [facility] Comment on above: Performed By: #### 7 600, 33814 #### [facility] of [address], [address] [place] [address] Teacher Resource: Khai Agiurre MD Creatinine [Mass/Vol] 0.46 mg/dL Low 0.50-1.[address] [facility] Comment on above: Performed By: #### 7 600, 39508 #### [facility] of [place] [address] Teacher Resource: Khai Aguirre MD GFR/1.73 sq M.predicted among non-blacks MDRD (S/P/Bld) [Vol rate/Area] 107 mL/min/{1.73_m2} Normal > OR = 60 [facility] Comment on above: Performed By: #### 7 600, 95772 #### [facility] of [address], [address] [place] [address] Teacher Resource: Khai Aguirre MD Globulin (S) [Mass/Vol] 2.2 g/dL Normal 1.9-3.7 [facility] Comment on above: Performed By: #### 7 600, 96077 #### [facility] of [place] [address] Teacher Resource: Khai Aguirre MD Glucose [Mass/Vol] 87 mg/dL Normal 65-99 [facility] Comment on above: Result Comment: Fasting reference interval Performed By: #### 7 600, 36421 #### [facility] [place] [address] Teacher Resource: Khai Aguirre MD Potassium [Moles/Vol] 4.1 mmol/L Normal 3.5-5.3 [facility] Comment on above: Performed By: #### 7 600, 22255 #### [facility] of [address], [address] [place] [address] Teacher Resource: Khai Aguirre MD Protein [Mass/Vol] 6.8 g/dL Normal 6.1-8.1 [facility] Comment on above: Performed By: #### 7 600, 68924 #### [facility] [place] [address] Teacher Resource: Khai Aguirre MD Sodium [Moles/Vol] 141 mmol/L Normal 135-146 [facility] Comment on above: Performed By: #### 7 600, 02795 #### [facility] [place] [address] Teacher Resource: Khai Aguirre MD Urea nitrogen [Mass/Vol] 8 mg/dL Normal 7-25 [facility] Comment on above: Performed By: #### 7 600, 08343 #### [facility] of [place] [address] Teacher Resource: Khai Aguirre MD Urea nitrogen/Creatinine [Mass ratio] 17 mg/mg Normal 6-22 [facility] Comment on above: Performed By: #### 7 600, 38844 #### [facility] of [place] [address] Teacher Resource: Khai Aguirre MD LIPID PANEL, [facility] - Cholesterol [Mass/Vol] 210 mg/dL High <200 [facility] Comment on above: Performed By: #### 7 600, 85480 #### [facility] of [place] [address], [address] [place] [address] Teacher Resource: Khai Aguirre MD Cholesterol in HDL [Mass/Vol] 64 mg/dL Normal > OR = 50 [facility] Comment on above: Performed By: #### 7 600, 63285 #### [facility] [address], [address] [place] [address] Teacher Resource: Khai Aguirre MD Cholesterol in LDL [Mass/Vol] 129 mg/dL High [facility] Comment on above: Result Comment: Refe rence range: <100 Desirable range <100 mg/dL for primary prevention; <70 mg/dL for patients with CHD or diabetic patients with > or = 2 CHD risk factors. LDL-C is now calculated using the Yari calculation, which is a validated novel method providing better accuracy than the Friedewald equation in the estimation of LDL-C. Jeison REA et al. ALEAH. 2013;310(19): 5132-2090 (http://education.ASP64.[employer]/faq/PMN184) Performed By: #### 7 600, 55410 #### [facility] [address], [address] [place] [address] Teacher Resource: Khai Aguirre MD Cholesterol.total/Cho lesterol in HDL [Mass ratio] 3.3 {ratio} Normal <5.0 [facility] Comment on above: Performed By: #### 7 600, 98923 #### [facility] [address], [address] [place] [address] Teacher Resource: Khai Aguirre MD NON HDL CHOLESTEROL 146 mg/dL (calc) High <130 [facility] Comment on above: Result Comment: For patients with diabetes plus 1 major ASCVD risk factor, treating to a non-HDL-C goal of <100 mg/dL (LDL-C of <70 mg/dL) is considered a therapeutic option. Performed By: #### 7 600, 29559 #### [facility] [address], [address] [place] [address] Teacher Resource: Khai Aguirre MD Triglyceride [Mass/Vol] 74 mg/dL Normal <150 [facility] Comment on above: Performed By: #### 7 600, 86744 #### [facility] [address], [address] [place] [address] Teacher Resource: Khai Aguirre MD Laboratory - Chemistry and C hemistry - challengeon 12-18-2024 Albumin [Mass/Vol] 4.6 g/dL Normal 3.6 - 5.1 g/dL [facility] Albumin/Globulin [Mass ratio] 2.1 {ratio} Normal 1.0 - 2.5 [facility] [employer] [employer] ALP [Catalytic activity/Vol] 68 U/L Normal 37 - 153 U/L [facility] [employer] ALT [Catalytic activity/Vol] 18 U/L Normal 6 - 29 U/L [facility] [employer] [employer] AST [Catalytic activity/Vol] 20 U/L Normal 10 - 35 U/L [facility] [employer] Bilirubin [Mass/Vol] 0.7 mg/dL Normal 0.2 - 1 .2 mg/dL [facility] [employer] Calcium [Mass/Vol] 9.5 mg/dL Normal 8.6 - 10. 4 mg/dL [facility] Chloride [Moles/Vol] 105 mmol/L Normal 98 - 11 0 mmol/L [facility] Cholesterol [Mass/Vol] 210 mg/dL Abnormal [facility] Cholesterol in HDL [Mass/Vol] 64 mg/dL Normal [facility] Cholesterol in LDL [Mass/Vol] 129 mg/dL Abnormal [facility] [employer] CO2 [Moles/Vol] 27 mmol/L Normal 20 - 32 mmol/L [facility] Creatinine [Mass/Vol] 0.46 mg/dL Abnormal 0.50 - 1.05 mg/dL [facility], [facility]. GFR/1.73 sq M.predicted among non-blacks MDRD (S/P/Bld) [Vol rate/Area] 107 mL/min/{1.73_m2} Normal [facility], [facility].; [facility], [facility]. Glucose [Mass/Vol] 87 mg/dL Normal 65 - 99 mg/dL [facility], [facility]. Potassium [Moles/Vol] 4.1 mmol/L Normal 3.5 - 5.3 mmol/L [facility], [facility]. Protein [Mass/Vol] 6.8 g/dL Normal 6.1 - 8.1 g/dL [facility].; [facility], [facility]. Sodium [Moles/Vol] 141 mmol/L Normal 135 - 146 mmol/L [facility], [facility].; [facility], [facility]. Triglyceride [Mass/Vol] 74 mg/dL Normal [facility]; [facility], [facility]. Urea nitrogen [Mass/Vol] 8 mg/dL Normal 7 - 25 mg/dL [facility].; [facility], [facility]. Urea nitrogen/Creatinine [Mass ratio] 17 mg/mg Normal 6 - 22 [facility]; [facility], [facility] No Panel Informationon 12-18 CHOL/HDLC RATIO 3.3 Normal [facility]; [facility], [facility]. GLOBULIN 2.2 Normal 1.9 - 3.7 [facility].; [facility], [facility]. NON HDL CHOLESTEROL 146 Abnormal [facility].; [facility], [facility]. 3D MAMM UNILAT LT DIAGNOSTIC on 08-07-2024 3D MAMM UNILAT LT DIAGNOSTIC [place] [address] Patient: BETTYE GOTTI Phone#: : 1960 Age: 64 Gender: F Pt. Type: Out Account: [id number] Location: [facility] Ordering: LAURIE WALKER Exam Date: 08/07/2024/10:19 Family Phys: CRISTINA MERCADO Charge Code: [id number] Physician: [place] Order #: [id number] Dose#: PROCEDURE: LEFT DIAGNOSTIC BREAST TOMOSYNTHESIS MAMMOGRAM WITH CAD COMPARISON: [facility], 3D BILAT SCREEN, 12/13/2023, 13:00. INDICATIONS: Abnormal screening mammogram BREAST COMPOSITION: Scattered areas fibroglandular density. FINDINGS: DIAGNOSTIC CATEGORY 2--BENIGN: LEFT BREAST: ASYMMETRY visible on only the oblique view, located in the central breast, at the mid-breast depth, with size of approximately 5x4 mm, previously 0.5 x 0.5 cm, not significantly changed. RECOMMENDATIONS: ROUTINE MAMMOGRAM AND CLINICAL EVALUATION IN 4 MONTHS to resume annual bilateral screening. PLEASE NOTE: A NORMAL MAMMOGRAM DOES NOT EXCLUDE THE POSSIBILITY OF BREAST CANCER. A CLINICALLY SUSPICIOUS PALPABLE LUMP SHOULD BE BIOPSIED. THIS FACILITY UTILIZES A REMINDER SYSTEM TO ENSURE THAT ALL PATIENTS RECEIVE REMINDER LETTERS FOR APPOINTMENTS. THIS INCLUDES REMINDERS FOR ROUTINE MAMMOGRAMS, DIAGNOSITC MAMMOGRAMS, OR OTHER BREAST IMAGING INTERVENTIONS WHEN APPROPRIATE. THIS PATIENT WILL BE PLACED IN THE APPROPRIATE REMINDER SYSTEM. Dictated by: Rosemary Duckworth MD on 08/07/2024 at 10:50 Approved by: Rosemary Duckworth MD on 08/07/2024 at 10:54 Normal [facility] Pelvic w/ Transvaginalon Pelvic w/ Transvaginal [facility] Imaging Services [address] [place] [address] Pelvic w/ Transvaginal MR#: [id number] Acct: [id number] Name: BETTYE GOTTI Rep #: [id number] : 1960 F 64 From: Sky pretty MD PCP: Dr. Cristina Mercado MD Status: REG CLI Study: Pelvic w/ Transvaginal Date of Exam: 07/28/24 Exam# [id number] Ordering Dr: Kamilla Calvo PIPING MANAGER PIPING MANAGER -C [id number] STUDY: ULTRASOUND OF THE FEMALE PELVIS - COMPLETE REASON FOR EXAM: Female, 64 years old. Monitor uterine lining LMP: Patient is postmenopausal. TECHNIQUE: Transabdominal and Transvaginal TECHNICAL QUALITY: Adequate. COMPARISON: None. FINDINGS: The uterus is anteverted and is in a midline position. The uterus measures 8 cm x 4.8 cm x 3.1 cm. There is a Nabothian cyst of the cervix. The endometrium is thickened and measures 7.7 mm in thickness, and is heterogeneous (striated). There is no demonstrated endometrial mass. There is evidence of a 2.5 cm x 2.7 cm x 2.7 cm fundal fibroid. I.U.D. - The patient does not have an I.U.D. The right ovary is visualized. The right ovary measures 1.2 cm x 1.1 cm x 0.7 cm. There is no right ovarian cyst or ovarian mass. There is no visualized right adnexal mass or complex lesion. There is normal arterial and normal venous vascularity. The left ovary is visualized. The left ovary measures 1.7 cm x 1.1 cm x 0.6 cm. There is no left ovarian cyst or ovarian mass. There is no visualized left adnexal mass or complex lesion. There is normal arterial and normal venous vascularity. There is no fluid in the cul-de-sac. The pre void volume of the bladder was 221 ml. US/Pelvic w/ Transvaginal IMPRESSION: Heterogeneous thickening of the endometrium and with multiple small cystic structures. 2.5 cm x 2.7 cm x 2.7 cm fundal fibroid. Electronically Signed: Sky Ramírez MD at 9:14 EST , CC: BARB Calvo; Dr. Cristina Mercado MD Front End Specialist: Signed Normal [facility] PELVICon 04-15-[address] [address] Patient: BETTYE GOTTI Phone#: : 1960 Age: 63 Gender: F Pt. Type: Out Account: [id number] Location: [facility] Ordering: LAURIE WALKER Exam Date: 04/15/2024/12:51 Family Phys: CRISTINA MERCADO Charge Code: [id number] Physician: [place] Order #: [id number] Dose#: PROCEDURE: PELVIC ULTRASOUND, TRANSABDOMINAL ENDOVAGINAL COMPARISON: None. INDICATIONS: Abnormal bleeding TECHNIQUE: Pelvic ultrasound using transabdominal and endovaginal technique. FINDINGS: UTERUS: Size is 8.5 x 3.0 x 4.7 cm. Endometrial thickness is 10 mm. There are cystic spaces in the endometrium ADNEXAE: Normal bilateral appearance with no significant masses. Right ovary is 1.0 x 0.7 x 1.2 cm. Left ovary is 0.9 x 0.6 x 1.0 cm. CUL-DE-SAC: Normal. No fluid or mass. OTHER: Images of the urinary bladder demonstrate a cystic structure at the base, this structure measures 0.8 x 1.1 cm. Nabothian cysts are seen at the cervix. CONCLUSION: 1. Abnormally thickened endometrium with cystic spaces. In a postmenopausal female the differential is endometrial hyperplasia, polyp or endometrial carcinoma. Recommend gynecology follow-up 2. Cystic structure in the urinary bladder partially visualized. Recommend dedicated ultrasound for further characterization. Dictated by: Rosemary Duckworth MD on 04/15/2024 at 16:37 Approved by: Rosemary Duckworth MD on 04/16/2024 at 16:13 Normal [facility] PELVIC ENDO VAGINALon [facility] ENDO [address] [address] Patient: BETTYE GOTTI Phone#: : 1960 Age: 63 Gender: F Pt. Type: Out Account: [id number] Location: [id number] Ordering: LAURIE WALKER Exam Date: 04/15/2024/12:51 Family Phys: CRISTINA MERCADO Charge Code: [id number] Physician: [place] Order #: [id number] Dose#: PROCEDURE: PELVIC ULTRASOUND, TRANSABDOMINAL ENDOVAGINAL COMPARISON: None. INDICATIONS: Abnormal bleeding TECHNIQUE: Pelvic ultrasound using transabdominal and endovaginal technique. FINDINGS: UTERUS: Size is 8.5 x 3.0 x 4.7 cm. Endometrial thickness is 10 mm. There are cystic spaces in the endometrium ADNEXAE: Normal bilateral appearance with no significant masses. Right ovary is 1.0 x 0.7 x 1.2 cm. Left ovary is 0.9 x 0.6 x 1.0 cm. CUL-DE-SAC: Normal. No fluid or mass. OTHER: Images of the urinary bladder demonstrate a cystic structure at the base, this structure measures 0.8 x 1.1 cm. Nabothian cysts are seen at the cervix. CONCLUSION: 1. Abnormally thickened endometrium with cystic spaces. In a postmenopausal female the differential is endometrial hyperplasia, polyp or endometrial carcinoma. Recommend gynecology follow-up 2. Cystic structure in the urinary bladder partially visualized. Recommend dedicated ultrasound for further characterization. Dictated by: Rosemary Duckworth MD on 04/15/2024 at 16:37 Approved by: Rosemary Duckworth MD on 04/16/2024 at 16:13 Normal [facility] CBC (INCLUDES DIFF/PLT)on Basophils (Bld) [#/Vol] 0.043 10*3/uL Normal 0-200 [facility] Comment on above: Performed By: #### 7 740, 7858, 77884 #### [facility] [address], [address] [place] [id number] Teacher Resource: Khai Aguirre MD Basophils/100 WBC (Bld) 0.6 % Normal [facility] Comment on above: Performed By: #### 7 600, 8215, 75901 #### [facility] [address] , [address] [place] [id number] Teacher Resource: Khai Aguirre MD Eosinophils (Bld) [#/Vol] 0.071 10*3/uL Normal 15-500 [facility] Comment on above: Performed By: #### 7 600, 6399, 45338 #### [facility] of [place] [address] Teacher Resource: Khai Aguirre MD Eosinophils/100 WBC (Bld) 1.0 % Normal [facility] Comment on above: Performed By: #### 7 600, 6399, 51350 #### [facility] [place] [address] Teacher Resource: Khai Aguirre MD Erythrocyte distribution width (RBC) [Ratio] 13.0 % Normal 11.0-15.0 [facility] Comment on above: Performed By: #### 7 600, 6399, 54772 #### [facility] of [place] [address] Teacher Resource: Khai Aguirre MD Hematocrit (Bld) [Volume fraction] 44.3 % Normal 35.0-45.0 [facility] Comment on above: Performed By: #### 7 600, 63, 52236 #### [facility] [place] [address] Teacher Resource: Khai Aguirre MD Hemoglobin (Bld) [Mass/Vol] 14.7 g/dL Normal 11.7-15.5 [facility] Comment on above: Performed By: #### 7 600, 63, 54003 #### [facility] of [place] [address] Teacher Resource: Khai Aguirre MD Lymphocytes (Bld) [#/Vol] 2.492 10*3/uL Normal 850-3900 [facility] Comment on above: Performed By: #### 7 600, 6399, 41107 #### [facility] of [place] [address] Teacher Resource: Khai Aguirre MD Lymphocytes/100 WBC (Bld) 35.1 % Normal [facility] Comment on above: Performed By: #### 7 600, 6399, 08687 #### [facility] of [address], [address] [place] [address] Teacher Resource: Khai Aguirre MD MCH (RBC) [Entitic mass] 29.5 pg Normal 27.0-33.0 [facility] Comment on above: Performed By: #### 7 600, 6399, 07567 #### [facility] of [address], [address] [place] [address] Teacher Resource: Khai Aguirre MD MCHC (RBC) [Mass/Vol] 33.2 g/dL Normal 32.0-36.[address] [facility] Comment on above: Performed By: #### 7 600, 6399, 42106 #### [facility] [place] [address] Teacher Resource: Khai Aguirre MD MCV (RBC) [Entitic vol] 89.0 fL Normal 80.0-100.0 [facility] Comment on above: Performed By: #### 7 600, 6399, 32241 #### [facility] [place] [address] Teacher Resource: Khai Aguirre MD Monocytes (Bld) [#/Vol] 0.582 10*3/uL Normal 200-950 [facility] Comment on above: Performed By: #### 7 600, 6399, 07268 #### [facility] [place] [address] Teacher Resource: Khai Aguirre MD Monocytes/100 WBC (Bld) 8.2 % Normal [facility] Comment on above: Performed By: #### 7 600, 6399, 97151 #### [facility] [place] [address] Teacher Resource: Khai Aguirre MD Neutrophils (Bld) [#/Vol] 3.912 10*3/uL Normal 3500-8558 [facility] Comment on above: Performed By: #### 7 600, 6399, 89352 #### [facility] [place] [address] Teacher Resource: Khai Aguirre MD Neutrophils/100 WBC (Bld) 55.1 % Normal [facility] Comment on above: Performed By: #### 7 600, 6399, 35687 #### [facility] of [address], [address] [place] [address] Teacher Resource: Khai Aguirre MD Platelet mean volume (Bld) [Entitic vol] 11.8 fL Normal 7.5-12.5 [facility] Comment on above: Performed By: #### 7 600, 6399, 60963 #### [facility] of [address], [address] [place] [address] Teacher Resource: Khai Aguirre MD Platelets (Bld) [#/Vol] 240 10*3/uL Normal 140-400 [facility] Comment on above: Performed By: #### 7 600, 6399, 99134 #### [facility] of [address], [address] [place] [address] Teacher Resource: Khai Aguirre MD RBC (Bld) [#/Vol] 4.98 10*6/uL Normal 3.80-5.10 [facility] Comment on above: Performed By: #### 7 600, 6399, 56859 #### [facility] of [address], [address] [place] [address] Teacher Resource: Khai Aguirre MD WBC (Bld) [#/Vol] 7.1 10*3/uL Normal 3.8-10.8 [facility] Comment on above: Performed By: #### 7 600, 6399, 96270 #### [facility] of [address], [address] [place] [address] Teacher Resource: Khai Aguirre MD [facility] 02-19-2024 Albumin [Mass/Vol] 4.7 g/dL Normal 3.6-5.1 [facility] Comment on above: Performed By: #### 7 600, 6399, 77783 #### [facility] of [address], [address] [place] [address] Teacher Resource: Khai Aguirre MD Albumin/Globulin [Mass ratio] 1.7 {ratio} Normal 1.0-2.5 [facility] Comment on above: Performed By: #### 7 600, 6399, 74125 #### [facility] of [address], [address] [place] [address] Teacher Resource: Khai Aguirre MD ALP [Catalytic activity/Vol] 82 U/L Normal 37-153 [facility] Comment on above: Performed By: #### 7 600, 6399, 03751 #### [facility] of [address], [address] [place] [address] Teacher Resource: Khai Aguirre MD ALT [Catalytic activity/Vol] 18 U/L Normal 6-29 [facility] Comment on above: Performed By: #### 7 600, 6399, 44834 #### [facility] of [address], [address] [place] [address] Teacher Resource: Khai Aguirre MD AST [Catalytic activity/Vol] 22 U/L Normal 10-35 [facility] Comment on above: Performed By: #### 7 600, 6399, 11860 #### [facility] of [address], [address] [place] [address] Teacher Resource: Khai Aguirre MD Bilirubin [Mass/Vol] 0.6 mg/dL Normal 0.2-1.2 [facility] Comment on above: Performed By: #### 7 600, 6399, 27783 #### [facility] [place] [address] Teacher Resource: Khai Aguirre MD BUN/CREATININE RATIO SEE NOTE: Normal 6-22 [facility] Comment on above: Result Comment: Not Reported: BUN and Creatinine are within reference range. Performed By: #### 7 600, 6399, 68108 #### [facility] of [address], [address] [place] [address] Teacher Resource: Khai Aguirre MD Calcium [Mass/Vol] 9.7 mg/dL Normal 8.6-10.4 [facility] Comment on above: Performed By: #### 7 600, 6399, 13776 #### [facility] [address], [address] [place] [address] Teacher Resource: Khai Aguirre MD Chloride [Moles/Vol] 105 mmol/L Normal 98-110 [facility] Comment on above: Performed By: #### 7 600, 6399, 93242 #### [facility] of [address], [address] [place] [address] Teacher Resource: Khai Aguirre MD CO2 [Moles/Vol] 26 mmol/L Normal 20-32 [facility] Comment on above: Performed By: #### 7 600, 6399, 74045 #### [facility] [place] [address] Teacher Resource: Khai Aguirre MD Creatinine [Mass/Vol] 0.61 mg/dL Normal 0.50-1.[address] [facility] Comment on above: Performed By: #### 7 600, 6399, 00717 #### [facility] [place] [address] Teacher Resource: Khai Aguirre MD GFR/1.73 sq M.predicted among non-blacks MDRD (S/P/Bld) [Vol rate/Area] 100 mL/min/{1.73_m2} Normal > OR = 60 [facility] Comment on above: Performed By: #### 7 600, 6399, 39148 #### [facility] [place] [address] Teacher Resource: Khai Aguirre MD Globulin (S) [Mass/Vol] 2.7 g/dL Normal 1.9-3.7 [facility] Comment on above: Performed By: #### 7 600, 6399, 17125 #### [facility] [place] [address] Teacher Resource: Khai Aguirre MD Glucose [Mass/Vol] 102 mg/dL High 65-99 [facility] Comment on above: Result Comment: Fasting reference interval For someone without known diabetes, a glucose value between 100 and 125 mg/dL is consistent with prediabetes and should be confirmed with a follow-up test. Performed By: #### 7 600, 6399, 01942 #### [facility] [place] [address] Teacher Resource: Khai Aguirre MD Potassium [Moles/Vol] 4.4 mmol/L Normal 3.5-5.[address] [facility] Comment on above: Performed By: #### 7 600, 6399, 56490 #### [facility] [place] [address] Teacher Resource: Khai Aguirre MD Protein [Mass/Vol] 7.4 g/dL Normal 6.1-8.1 [facility] Comment on above: Performed By: #### 7 600, 6399, 86660 #### [facility] [place] [address] Teacher Resource: Khai Aguirre MD Sodium [Moles/Vol] 139 mmol/L Normal 135-146 [facility] Comment on above: Performed By: #### 7 600, 6399, 43960 #### [facility] [place] [address] Teacher Resource: Khai Aguirre MD Urea nitrogen [Mass/Vol] 13 mg/dL Normal 7-25 [facility] Comment on above: Performed By: #### 7 600, 6399, 84259 #### [facility] [place] [address] Teacher Resource: Khai Aguirre MD LIPID PANEL, [facility] 01-25 Cholesterol [Mass/Vol] 257 mg/dL High <200 [facility] Comment on above: Performed By: #### 7 600, 6399, 52200 #### [facility] [place] [address] Teacher Resource: Khai Aguirre MD Cholesterol in HDL [Mass/Vol] 79 mg/dL Normal > OR = 50 [facility] Comment on above: Performed By: #### 7 600, 6399, 95754 #### [facility] [address], [address] [place] [address] Teacher Resource: Khai Aguirre MD Cholesterol in LDL [Mass/Vol] 160 mg/dL High [facility] Comment on above: Result Comment: Refe rence range: <100 Desirable range <100 mg/dL for primary prevention; <70 mg/dL for patients with CHD or diabetic patients with > or = 2 CHD risk factors. LDL-C is now calculated using the Yari calculation, which is a validated novel method providing better accuracy than the Friedewald equation in the estimation of LDL-C. Jeison SS et al. ALEAH. 2013;310(19): 9139-3655 (http://education.ASP64.[employer]/faq/YMR817) Performed By: #### 7 600, 6399, 39026 #### [facility] [place] [address] Teacher Resource: Khai Aguirre MD Cholesterol.total/Cho lesterol in HDL [Mass ratio] 3.3 {ratio} Normal <5.0 [facility] Comment on above: Performed By: #### 7 600, 6399, 32913 #### [facility] [place] [address] Teacher Resource: Khai Aguirre MD NON HDL CHOLESTEROL 178 mg/dL (calc) High <130 [facility] Comment on above: Result Comment: For patients with diabetes plus 1 major ASCVD risk factor, treating to a non-HDL-C goal of <100 mg/dL (LDL-C of <70 mg/dL) is considered a therapeutic option. Performed By: #### 7 600, 6399, 09555 #### [facility] [place] [address] Teacher Resource: Khai Aguirre MD Triglyceride [Mass/Vol] 78 mg/dL Normal <150 [facility] Comment on above: Performed By: #### 7 600, 6399, 31368 #### [facility] [place] [address] Teacher Resource: Khai Aguirre MD Laboratory - Chemistry and C hemistry - challengeon 02-18-2024 Albumin [Mass/Vol] 4.7 g/dL Normal 3.6 - 5.1 g/dL [facility], [facility].; [employer] [facility] [employer] Albumin/Globulin [Mass ratio] 1.7 {ratio} Normal 1.0 - 2.5 [facility], [facility].; [facility] ALP [Catalytic activity/Vol] 82 U/L Normal 37 - 153 U/L [facility], [facility].; [employer] [facility] ALT [Catalytic activity/Vol] 18 U/L Normal 6 - 29 U/L [facility], [facility].; [place] [employer] [facility], [employer]. AST [Catalytic activity/Vol] 22 U/L Normal 10 - 35 U/L [facility], [facility].; [employer], [employer]. Bilirubin [Mass/Vol] 0.6 mg/dL Normal 0.2 - 1 .2 mg/dL [facility], [facility].; [employer] Calcium [Mass/Vol] 9.7 mg/dL Normal 8.6 - 10. 4 mg/dL [employer] [facility], [facility].; [employer], [employer]. Chloride [Moles/Vol] 105 mmol/L Normal 98 - 11 0 mmol/L [facility], [facility].; [employer] Cholesterol [Mass/Vol] 257 mg/dL Abnormal [employer], [facility].; [employer] Cholesterol in HDL [Mass/Vol] 79 mg/dL Normal [employer], [facility].; [employer] Cholesterol in LDL [Mass/Vol] 160 mg/dL Abnormal [employer], [facility].; [employer] CO2 [Moles/Vol] 26 mmol/L Normal 20 - 32 mmol/L [employer], [employer].; [employer] Creatinine [Mass/Vol] 0.61 mg/dL Normal 0.50 - 1.05 mg/dL [employer] [facility], [employer].; [employer], [employer]. GFR/1.73 sq M.predicted among non-blacks MDRD (S/P/Bld) [Vol rate/Area] 100 mL/min/{1.73_m2} Normal [facility], [facility].; [facility], [facility]. Glucose [Mass/Vol] 102 mg/dL Abnormal 65 - 99 mg/dL [facility].; [facility], [facility]. Potassium [Moles/Vol] 4.4 mmol/L Normal 3.5 - 5.3 mmol/L [facility], [facility].; [facility], [facility] Protein [Mass/Vol] 7.4 g/dL Normal 6.1 - 8.1 g/dL [facility]; [facility], [facility] Sodium [Moles/Vol] 139 mmol/L Normal 135 - 146 mmol/L [facility], [facility]; [facility], [facility] Triglyceride [Mass/Vol] 78 mg/dL Normal [facility]; [facility], [facility] Urea nitrogen [Mass/Vol] 13 mg/dL Normal 7 - 25 mg/dL [facility], [facility]; [facility], [facility] Laboratory - Hematology and Cell countson 02-18-2024 Basophils (Bld) [#/Vol] 0.043 10*3/uL Normal 0 - 200 {cells/uL} [facility].; [facility], [facility] Basophils/100 WBC (Bld) 0.6 % Normal [facility]; [facility], [facility]. Eosinophils (Bld) [#/Vol] 0.071 10*3/uL Normal 15 - 500 {cells/uL} [facility], [facility].; [facility], [facility] Eosinophils/100 WBC (Bld) 1.0 % Normal [facility].; [facility], [facility]. Erythrocyte distribution width (RBC) [Ratio] 13.0 % Normal 11.0 - 15.0 % [facility], [facility].; [facility], [facility] Hematocrit (Bld) [Volume fraction] 44.3 % Normal 35.0 - 45.0 % [facility], [facility].; [facility], [facility] Hemoglobin (Bld) [Mass/Vol] 14.7 g/dL Normal 11.7 - 15.5 g/dL [facility].; [facility] Lymphocytes (Bld) [#/Vol] 2.492 10*3/uL Normal 850 - 3900 {cells/uL} [facility], [facility].; [facility] [employer], [facility]. Lymphocytes/100 WBC (Bld) 35.1 % Normal [facility].; [facility], [facility]. MCH (RBC) [Entitic mass] 29.5 pg Normal 27.0 - 33.0 pg [facility], [facility].; [facility], [facility]. MCHC (RBC) [Mass/Vol] 33.2 g/dL Normal 32.0 - 36.0 g/dL [facility], [facility].; [employer], [facility]. MCV (RBC) [Entitic vol] 89.0 fL Normal 80.0 - 100.0 fL [facility], [facility].; [facility], [facility]. Monocytes (Bld) [#/Vol] 0.582 10*3/uL Normal 200 - 950 {cells/uL} [facility], [facility].; [employer], [facility]. Monocytes/100 WBC (Bld) 8.2 % Normal [facility].; [employer], [facility]. Neutrophils (Bld) [#/Vol] 3.912 10*3/uL Normal 1500 - 7800 {cells/uL} [facility], [facility].; [employer], [facility]. Neutrophils/100 WBC (Bld) 55.1 % Normal [facility], [facility].; [employer], [facility]. Platelet mean volume (Bld) [Entitic vol] 11.8 fL Normal 7.5 - 12.5 fL [facility], [facility].; [employer] Platelets (Bld) [#/Vol] 240 10*3/uL Normal 140 - 400 [facility].; [employer] RBC (Bld) [#/Vol] 4.98 10*6/uL Normal 3.80 - 5.1 0 {Million/uL} [facility], [facility].; [employer] WBC (Bld) [#/Vol] 7.1 10*3/uL Normal 3.8 - 10.8 [facility] [employer] [facility].; [employer], [employer]. No Panel Informationon 02-17 BUN/CREATININE RATIO SEE NOTE: Normal 6 - 22 [facility], [facility].; [facility] CHOL/HDLC RATIO 3.[address] [facility].; [facility], [facility]. GLOBULIN 2.7 Normal 1.9 - 3.7 [facility], [facility].; [facility], [facility]. NON HDL CHOLESTEROL 178 Abnormal [facility].; [facility], [facility]. US BREAST LT UNILATERAL COMP LETEon 12-31-2023 US BREAST LT UNILATERAL COMPLETE [place] [address] Patient: BETTYE GOTTI Phone#: : 1960 Age: 63 Gender: F Pt. Type: Out Account: [id number] Location: [facility] Ordering: LAURIE WALKER Exam Date: 12/31/2023/10:18 Family Phys: CRISTINA MERCADO Charge Code: [id number] Physician: [place] Order #: [id number] Dose#: PROCEDURE: ULTRASOUND BREAST LT COMPARISON: [facility], 3D BILAT SCREEN, 12/13/2023, 13:00. INDICATIONS: Follow up mammogram TECHNIQUE: Breast ultrasound was performed, with evaluation focusing on all four quadrants. FINDINGS: DIAGNOSTIC CATEGORY 3--PROBABLY BENIGN: FINDING(S) HAS A HIGH PROBABILITY OF A BENIGN; LEFT BREAST: Simple benign-appearing cyst, anechoic echotexture, mid-breast depth, 8 o'clock position, measuring 1 x 2 mm. RECOMMENDATIONS: SHORT TERM FOLLOW-UP DIAGNOSTIC MAMMOGRAM LEFT BREAST IN 6 MONTHS to monitor stability of the mammogram finding. PLEASE NOTE: A NORMAL MAMMOGRAM DOES NOT EXCLUDE THE POSSIBILITY OF BREAST CANCER. A CLINICALLY SUSPICIOUS PALPABLE LUMP SHOULD BE BIOPSIED. Dictated by: Rosemary Duckworth MD on 12/31/2023 at 13:58 Approved by: Rosemary Duckworth MD on 12/31/2023 at 14:10 Normal [facility] 3D MAMM BILAT SCREENon 12-12 3D MAMM BILAT SCREEN [place] [address] Patient: BETTYE GOTTI Phone#: : 1960 Age: 63 Gender: F Pt. Type: Out Account: [id number] Location: [facility] Ordering: LAURIE WALKER Exam Date: 12/13/2023/13:00 Family Phys: CRISTINA MERCADO Charge Code: [id number] Physician: [place] Order #: [id number] Dose#: PROCEDURE: BILATERAL SCREENING BREAST TOMOSYNTHESIS MAMMOGRAM WITH CAD COMPARISON: [facility], 3D BILAT SCREEN, 09/27/2021, 14:06. [facility], 3D BILAT SCREEN, 09/28/2022, 9:17. INDICATIONS: benign circumscribed morphology, mid-breast depth, 3 o'clock position, and 5x5x6 mm size. BREAST COMPOSITION: Scattered areas fibroglandular density. FINDINGS: DIAGNOSTIC CATEGORY 0--INCOMPLETE: NEED ADDITIONAL IMAGING EVALUATION. RIGHT BREAST: No significant suspicious finding. No significant change has occurred. LEFT BREAST: FOCAL ASYMMETRY (finding without convex borders usually visible on two orthogonal views), characterized by 5x5x6 RECOMMENDATIONS: ULTRASOUND: LEFT BREAST --We will call the patient back for an ultrasound and provide an additional report. PLEASE NOTE: A NORMAL MAMMOGRAM DOES NOT EXCLUDE THE POSSIBILITY OF BREAST CANCER. A CLINICALLY SUSPICIOUS PALPABLE LUMP SHOULD BE BIOPSIED. THIS FACILITY UTILIZES A REMINDER SYSTEM TO ENSURE THAT ALL PATIENTS RECEIVE REMINDER LETTERS FOR APPOINTMENTS. THIS INCLUDES REMINDERS FOR ROUTINE MAMMOGRAMS, DIAGNOSITC MAMMOGRAMS, OR OTHER BREAST IMAGING INTERVENTIONS WHEN APPROPRIATE. THIS PATIENT WILL BE PLACED IN THE APPROPRIATE REMINDER SYSTEM. Dictated by: Rosemary Duckworth MD on 12/13/2023 at 16:45 Approved by: Rosemary Duckworth MD on 12/13/2023 at 16:54 Normal [facility] Provider Note - ED v3on 0 Provider Note - ED v3 Provider Note: Chart Review: ED NOTES ED NOTES: Patient presents for evaluation of sinus pressure. Patient reports 10 days of progressively worsening maxillary sinus pain, nasal congestion, and headache. There is reported mild postnasal drip and ear pressure. No fever, cough, or other constitutional signs and symptoms. Symptoms have been refractory to [id number] medications. HISTORY OF PRESENTING ILLNESS BETTYE is a 62 year old Female and was seen by me at 25-Oct-2022 15:07. Triage Information: Most recent Vital Sign Value Date PAST MEDICAL HISTORY ALLERGIES/INTOLERANCE S: No Known Allergies HEALTH HISTORY: No documented data. OUTPATIENT MEDICATIONS: Home Medications Review Status for Reconciliation: Complete Med Status: Patient Currently Takes Medications Drug Name: Zetia 10 mg oral tablet Instructions: 1 tab(s) orally once a day Drug Name: cholestyramine 4 g/5 g oral powder for reconstitution Instructions: 1 orally 5 MG PACK DAILY Drug Name: amoxicillin-clavulana te 875 mg-125 mg oral tablet Instructions: 875 milligram(s) orally 2 times a day SIGNIFICANT EVENTS: No documented data. REVIEW OF SYSTEMS All other systems reviewed and are negative REVIEW OF SYSTEMS: Comments See HPI PHYSICAL EXAM CONSTITUTIONAL: Dull nasally voice but appears well nourished, awake, alert, oriented to person, place, time/situation and in no apparent distress. HENMT: Airway patent, ears with clear tympanic membranes bilaterally. Nasal mucosa clear. Mouth with normal mucosa. Throat has no vesicles, no oropharyngeal exudates and uvula is midline. Face with maxillary sinus tenderness bilaterally. No lymphadenopathy. EYES: Clear bilaterally, pupils equal, round and reactive to light. CARDIOVASCULAR: Normal rate, regular rhythm. Heart sounds S1, S2. No murmurs, rubs or gallops. PMI non-displaced. RESPIRATORY: Breath sounds clear and equal bilaterally. NEUROLOGICAL: Alert and oriented, no focal deficits, no motor or sensory deficits. SKIN: Skin normal color for race, warm, dry and intact. No evidence of trauma. PSYCHIATRIC: Alert and oriented to person, place, time/situation. normal mood and affect. No apparent risk to self or others. CRITICAL CARE VITAL SIGNS: T PRBP SpO2O2(LPM) %FiO2 Method 25-Oct-2022 14:55:[id number]/ 75 96 MDM MDM/ED COURSE: Discussed Findings with: patient Data Reviewed: vital signs Treatment Plan: Rx AUgmentin. Patient's clinical presentation is otherwise unremarkable at this time. Patient is discharged with instructions to follow-up with primary care or seek emergency medical attention for worsening symptoms or any new concerns. DISPOSITION Diagnosis/Annotation: ED Dx Name:Acute sinusitis Code:J01.90 Disposition: discharged Type: home CONSULT CRITICAL CARE TIME Is this a critically ill patient: no Electronic Signatures: Brennen Lang (WALKING DRAGLINE OPERATOR-TRAFFIC RATE COMPUTER) (Signed 25-Oct-2022 15:12) Authored: ED Notes, HPI, PMH, ROS, PE, Results/Vital Signs, MDM/ED Course, Clinical Impression, Attestation, Chart Review, Scores Last Updated: 25-Oct-2022 15:12 by Brennen Lang (WALKING DRAGLINE OPERATOR-TRAFFIC RATE COMPUTER) [facility] Provider Note - ED v3on 11-25 Provider Note - ED v3 Provider Note: Chart Review: HISTORY OF PRESENTING ILLNESS BETTYE is a 61 year old Female and was seen by me at 16-Dec-2021 08:24. Triage Information: Most recent Vital Sign Value Date PAST MEDICAL HISTORY CURRENT OR FORMER SUBSTANCE USE: Tobacco/Nicotine Use: never smoker Alcohol Use: occasionally ALLERGIES/INTOLERANCE S: No Known Allergies HEALTH HISTORY: No documented data. OUTPATIENT MEDICATIONS: Home Medications Review Status for Reconciliation: Not Done Med Status: Patient Currently Takes Medications Drug Name: Zetia 10 mg oral tablet Instructions: 1 tab(s) orally once a day SIGNIFICANT EVENTS: No documented data. MDM MDM/ED COURSE: This note was dictated using Dragon Dictation there may be errors in spelling, grammar, formatting, and misrecognization of what was dictated. Chief Complaint: ``Cough HPI: Historian Patient States that symptoms started 11 days ago. Complains of see ROS. Denies see ROS Has tried taking OTC cough and cold medication, Mucinex, . Factors that aggravate symptoms include first thing in the morning. Patient was recently exposed to sick contact- a couple people at work who have had similar. symptoms Patient has had similar symptoms like this before- not every year but has had sinus infections in the past. Recent Travel denies. A rapid home covid test was taken on saturday that was negative History of COVID infection: Denies Review of Systems (+)=Complains of (-)= Denies General: : (-)Weakness, (-)Fatigue,(-)Headach e and (-)Fever (-) Chills (-) Loss of Taste (-) Loss of Smell Mouth/Throat: (+) Sore Throat, (+ )Hoarseness, (+)Post nasal drip Eyes:(-) Eye pain, (-)change in vision,( -)redness (-) discharge Neck:(-) Swollen Glands, (-)Stiffness, Nose/Sinuses:(+) Nasal Stuffiness, , (+)Discharge, (+)Sinus Pressure. Ears: (-) Pain, (+) Fullness (-)Discharge, (-)Ringing, (-) Dizziness. Skin: (-) itching,(-) change to hair and nails,( -)rash Pulmonary: (+) Cough(,sometimes productive), (-) Dyspnea, (-)Wheezing. Cardiac: (-) Chest pain, (+) Chest Congestion, (-)Edema. Gastrointestinal: (-) Nausea,(-) Vomiting,( -)Diarrhea( -)Abdominal Pain. Psychological: (-) Anxiety, (-) Depression, (-) Thoughts or plan of self-harm. PHYSICAL EXAM Patient in seated position. Appearance {fatigue, with dull nasal voice} well groomed, alert and orientated, no acute distress, speech clear, and evenly paced, good historian, cooperative. Head: Normocephalic Neuro: No focal neurologic deficits. Age-appropriate, interactive, and, again, nontoxic in appearance. Ear: External pinna skin intact with no mases, lesions, or discharge. No tenderness with manipulation of tragus and pinna. No tenderness, erythema, or swelling over mastoid. Otoscopic: Landmarks external canals clear with no redness swelling, lesions, discharge. TM bilaterally pearly leary with light reflex and landmarks intact, no perforation. Eye: Light reflex: symmetrical bilaterally Inspection: Brows and lashes present no ptosis, conjunctiva clear, sclera white, cornea smooth and clear no lesions. Nose: Nose symmetric, no deformity, or lesions, nares patent, mucosa pink,, lesions, polyps, no septal deviation or perforation. Audible nasal congestion noted discharge noted. Sinus : [No] tenderness to ethmoid, and maxillary sinus upon palpation, [No] transillumination diffuse red glow noted. Mouth: Throat mucosa [pink ], no lesions, no exudate. post nasal drip is noted. Uvula midline rises on phonation. + gag reflex. Lips moist and pink. Teeth intact and well maintained no missing or chipped teeth. No foul-smelling odor from breath. Soft and hard palpate intact. Tongue surface smooth, shiny with veins. Neck: no tender high anterior/posterior cervical lymphadenopathy Skin: Inspection: Visible Color: appropriate for ethnicity Moisture: dry to touch throughout Temperature: warm bilaterally Tenderness: no tenderness noted Texture: smooth, Edema: none noted Cardiac: Regular rate, rhythm S1 S2. No murmur rubs or gallops. Lungs: Inspection +symmetric expansion, Patient sitting , respirations full, easy, and unlabored, skin color appropriate for ethnicity, pink, no cyanosis, or lesions noted. Auscultation Lungs clear and equal bilaterally. No stridor. No wheezes, rales or rhonchi. Tracheal/bronchial- loud high pitch. Bronchovesicular moderate pitch. Abdomen: Inspection: Shape: rounded Masses: No masses noted bilaterally. Respiratory movement: even and easy RR bilaterally, unlabored, no acute distress. Auscultation: Bowel sounds: normal high pitched, gurgling, occurring irregular 5-30 seconds. Palpation: Light and Deep: abdomen soft, no guarding, rigidity, large masses, or tenderness noted. Diagnostic: Defers- COVID-19 and Flu Specimens obtained today in clinic for send out te (more content not included)... Normal [facility] XR KNEE RIGHT 3 VIEWS (SPECI FY VIEWS IN COMMENTS)on 08-17-2021 XR KNEE RIGHT 3 VIEWS (SPECIFY VIEWS IN COMMENTS) EXAMINATION: XR KNEE RIGHT 3 VIEWS (SPECIFY VIEWS IN COMMENTS). HISTORY: ORDERING SYSTEM PROVIDED HISTORY: Followup. TECHNOLOGIST PROVIDED HISTORY: Illness/Other Reason for exam: s/p right TKR f/u 6 weeks. Cancer History: u Surgery, RadiationHistory: u Encounter Type: Subsequent/Follow-up Additional signs and symptoms: none ORDERING SYSTEM PROVIDED DIAGNOSIS CODES: Z09 Followup. COMPARISON: 07/03/2021. FINDINGS: Three views of the right knee. Postoperative changes of total knee replacement. Hardware is well seated with appropriate alignment. No periprosthetic fracture. Suprapatellar joint effusion is present. Skin nalini have been removed. Mild prepatellar soft swelling. No soft tissue emphysema. IMPRESSION: Intact knee replacement. ST/[employer] Workstation ID: [id number] Dictated by: EFRAIN ANGULO on SatAug 17, 2021 7:29:30 PM EST Transcribed by: JV OLIVARES on SatAug 17, 2021 7:31:31 PM EST Finalized by: EFRAIN ANGULO on SatAug 17, 2021 9:55:01 PM EST Normal [facility] Comment on above: Order Comment: Injur y/Trauma or Illness?:Illness/Other How long have you had these symptoms (acute/chronic)?:Chronic Reason for exam?:s/p right TKR f/u 6 weeks. History of cancer?:u Surgeries, chemotherapy, or radiation?:u Type of Exam?:Subsequent/Follow-up Additional signs and symptoms?:none XR KNEE RIGHT 2 VIEWS (STAND GUILLERMO)on 07-03-2021 XR KNEE RIGHT 2 VIEWS (STANDARD) EXAMINATION: XR KNEE RIGHT 2 VIEWS (STANDARD) HISTORY: s/p right TKA in OR COMPARISON: 03/14/2020 right knee. TECHNIQUE: AP and cross-fire lateral views. FINDINGS: There has been interval knee replacement with satisfactory appearance of the prosthetic components. Residual anterior soft tissue and joint space air and a vertical row of skin nalini is present. IMPRESSION: Interval knee replacement with residual postsurgical soft tissue findings. [email or web address] Workstation ID: [id number] Dictated by: FATOUMATA OHARA on SatJul 03, 2021 10:26:08 AM EST Transcribed by: JAM CARDOZO on SatJul 03, 2021 10:47:30 AM EST Finalized by: FATOUMATA OHARA on SatJul 03, 2021 11:11:00 AM EST Normal [facility] Comment on above: Order Comment: Injur y/Trauma or Illness?:Illness/Other How long have you had these symptoms (acute/chronic)?:Chronic Reason for exam?:Right knee replacement hx of chondromalacia patellofemoral joint History of cancer?:u Surgeries, chemotherapy, or radiation?:u Type of Exam?:Initial Additional signs and symptoms?:. MRSA CultureOrdered By: Radha Lovett on 06-16-2021 MRSA isol Org specific cx Ql (Unsp spec) Negative [facility] MRSA isol Org specific cx Ql (Unsp spec)Ordered By: Jen Lovett on 06-16-2021 Interpretation and review of laboratory results Normal [facility] Basic metabolic 2000 panelon 06-15-2021 Anion gap [Moles/Vol] 10 mmol/L 10 - 2 0 mmol/L [facility] Calcium [Mass/Vol] 9.8 mg/dL 8.4 - 10. 2 mg/dL [facility] Chloride [Moles/Vol] 107 mmol/L 98 - 10 8 mmol/L [facility] Creatinine [Mass/Vol] 0.68 mg/dL 0.40 - 1.10 [facility] GFR/1.73 sq M.predicted CKD-EPI (S/P/Bld) [Vol rate/Area] 95 >=60 mL/min/1.73 m2 [facility] Glucose [Mass/Vol] 106 mg/dL High 65 - 99 mg/dL [facility] HCO3 [Moles/Vol] 26 mmol/L 21 - 32 mmol/L [facility] Interpretation and review of laboratory results Abnormal [facility] Potassium [Moles/Vol] 3.8 mmol/L 3.5 - 5.1 mmol/L [facility] Sodium [Moles/Vol] 139 mmol/L 135 - 145 mmol/L [facility] Urea nitrogen [Mass/Vol] 13 mg/dL 8 - 25 mg/dL [facility] Urea nitrogen/Creatinine [Mass ratio] 19.1 mg/mg [facility] The eGFR should be used for monitoring renal function only and not for medication dosing. [facility] CT KNEE RIGHT WITHOUT CONTRA STon 06-15-2021 CT KNEE RIGHT WITHOUT CONTRAST EXAMINATION: CT KNEE RIGHT WITHOUT CONTRAST HISTORY: ORDERING SYSTEM PROVIDED HISTORY: pre operative for upcoming Rt TKR scheduled for 07/03/21, TECHNOLOGIST PROVIDED HISTORY: Illness/Other Reason for exam: pre operative for upcoming Rt TKR scheduled for 07/03/21, Chondromalacia of patellofemoral joint, right Encounter Type: Initial Additional signs and symptoms: n ORDERING SYSTEM PROVIDED DIAGNOSIS CODES: M22.41 Chondromalacia of patellofemoral joint, right COMPARISON: 03/14/2020 radiograph. MR knee 03/30/2021. TECHNIQUE: Axial CT imaging of the right hip, knee and ankle without contrast. Lito protocol. Dose reduction techniques were achieved by using automated exposure control and/or adjustment of mA and/or kV according to patient size and/or use of iterative reconstruction technique. FINDINGS: KNEE: No acute osseous abnormality. Medial knee compartment joint space narrowing with subchondral sclerosis and osteophytic spurring. Small suprapatellar joint effusion. Normal surrounding muscle bulk. HIP: No acute osseous abnormality. No CT evidence of avascular necrosis of the femoral head. Normal alignment. No significant hip osteoarthritis. No significant joint effusion. ANKLE: No acute osseous abnormality. Normal joint alignment. No significant tibiotalar osteoarthritis. Surrounding soft tissues appear unremarkable. IMPRESSION: Right knee osteoarthritis with small joint effusion. [employer] Workstation ID: [id number] Dictated by: EFRAIN ANGULO on Ida Jun 15, 2021 1:21:51 PM EDT Transcribed by: CRISTINA GUAJARDO on Ida Jun 15, 2021 1:27:08 PM EDT Finalized by: EFRAIN AGNULO on Ida Jun 15, 2021 10:03:05 PM EDT Normal [facility] Comment on above: Order Comment: Injur y/Trauma or Illness?:Illness/Other How long have you had these symptoms (acute/chronic)?:Chronic Reason for exam?:pre operative for upcoming Rt TKR scheduled for 07/03/21, Chondromalacia of patellofemoral joint, right Type of Exam?:Initial Additional signs and symptoms?:n CT Knee Right Without Contra ston 06-15-2021 Right knee osteoarthritis with small joint effusion. [employer] Workstation ID: [id number] [facility] EXAMINATION: CT KNEE RIGHT WITHOUT CONTRAST HISTORY: ORDERING SYSTEM PROVIDED HISTORY: pre operative for upcoming Rt TKR scheduled for 07/03/21, TECHNOLOGIST PROVIDED HISTORY: Illness/Other Reason for exam: pre operative for upcoming Rt TKR scheduled for 07/03/21, Chondromalacia of patellofemoral joint, right Encounter Type: Initial Additional signs and symptoms: n ORDERING SYSTEM PROVIDED DIAGNOSIS CODES: M22.41 Chondromalacia of patellofemoral joint, right COMPARISON: 03/14/2020 radiograph. MR knee 03/30/2021. TECHNIQUE: Axial CT imaging of the right hip, knee and ankle without contrast. Lito protocol. Dose reduction techniques were achieved by using automated exposure control and/or adjustment of mA and/or kV according to patient size and/or use of iterative reconstruction technique. FINDINGS: KNEE: No acute osseous abnormality. Medial knee compartment joint space narrowing with subchondral sclerosis and osteophytic spurring. Small suprapatellar joint effusion. Normal surrounding muscle bulk. HIP: No acute osseous abnormality. No CT evidence of avascular necrosis of the femoral head. Normal alignment. No significant hip osteoarthritis. No significant joint effusion. ANKLE: No acute osseous abnormality. Normal joint alignment. No significant tibiotalar osteoarthritis. Surrounding soft tissues appear unremarkable. Efrain Howell, DO - 06/15/2021 EXAMINATION: CT KNEE RIGHT WITHOUT CONTRAST HISTORY: ORDERING SYSTEM PROVIDED HISTORY: pre operative for upcoming Rt TKR scheduled for 07/03/21, TECHNOLOGIST PROVIDED HISTORY: Illness/Other Reason for exam: pre operative for upcoming Rt TKR scheduled for 07/03/21, Chondromalacia of patellofemoral joint, right Encounter Type: Initial Additional signs and symptoms: n ORDERING SYSTEM PROVIDED DIAGNOSIS CODES: M22.41 Chondromalacia of patellofemoral joint, right COMPARISON: 03/14/2020 radiograph. MR knee 03/30/2021. TECHNIQUE: Axial CT imaging of the right hip, knee and ankle without contrast. Lito protocol. Dose reduction techniques were achieved by using automated exposure control and/or adjustment of mA and/or kV according to patient size and/or use of iterative reconstruction technique. FINDINGS: KNEE: No acute osseous abnormality. Medial knee compartment joint space narrowing with subchondral sclerosis and osteophytic spurring. Small suprapatellar joint effusion. Normal surrounding muscle bulk. HIP: No acute osseous abnormality. No CT evidence of avascular necrosis of the femoral head. Normal alignment. No significant hip osteoarthritis. No significant joint effusion. ANKLE: No acute osseous abnormality. Normal joint alignment. No significant tibiotalar osteoarthritis. Surrounding soft tissues appear unremarkable. IMPRESSION: Right knee osteoarthritis with small joint effusion. ST/jcw Workstation ID: [id number] [facility] Radiology Study observation (narrative) [facility] CT Knee Right Without Contra stOrdered By: Efrain Angulo on 06-15-2021 [facility] Work Phone: Laboratory - Chemistry and C hemistry - challengeon 04-17-2021 Albumin [Mass/Vol] 4.3 g/dL Normal 3.6 - 5.1 g/dL [facility] [employer] [facility] Albumin/Globulin [Mass ratio] 1.7 {ratio} Normal 1.0 - 2.5 [facility] [employer].; [facility] [employer]. ALP [Catalytic activity/Vol] 73 U/L Normal 37 - 153 U/L [employer]. ALT [Catalytic activity/Vol] 14 U/L Normal 6 - 29 U/L [facility].; [facility], [facility]. AST [Catalytic activity/Vol] 17 U/L Normal 10 - 35 U/L [facility].; [facility], [facility]. Bilirubin [Mass/Vol] 0.7 mg/dL Normal 0.2 - 1 .2 mg/dL [facility].; [facility], [facility]. Calcium [Mass/Vol] 9.5 mg/dL Normal 8.6 - 10. 4 mg/dL [facility].; [facility], [facility]. Chloride [Moles/Vol] 104 mmol/L Normal 98 - 11 0 mmol/L [facility].; [facility], [facility]. Cholesterol [Mass/Vol] 282 mg/dL Abnormal [facility], [facility]; [facility], [facility] Cholesterol in HDL [Mass/Vol] 85 mg/dL Normal [facility].; [facility], [facility]. Cholesterol in LDL [Mass/Vol] 178 mg/dL Abnormal [facility].; [facility], [facility]. CO2 [Moles/Vol] 27 mmol/L Normal 20 - 32 mmol/L [facility].; [facility], [facility]. Creatinine [Mass/Vol] 0.62 mg/dL Normal 0.50 - 0.99 mg/dL [facility], [facility].; [facility], [facility]. GFR/1.73 sq M.predicted among blacks MDRD (S/P/Bld) [Vol rate/Area] 114 mL/min/{1.73_m2} Normal [facility], [facility].; [facility], [facility]. Glucose [Mass/Vol] 92 mg/dL Normal 65 - 99 mg/dL [facility].; [facility], [facility]. Potassium [Moles/Vol] 4.1 mmol/L Normal 3.5 - 5.3 mmol/L [facility], [facility].; [facility], [facility]. Protein [Mass/Vol] 6.8 g/dL Normal 6.1 - 8.1 g/dL [facility], [facility].; [facility] Sodium [Moles/Vol] 139 mmol/L Normal 135 - 146 mmol/L [facility].; [facility] Triglyceride [Mass/Vol] 84 mg/dL Normal [facility].; [facility], [facility] Urea nitrogen [Mass/Vol] 21 mg/dL Normal 7 - 25 mg/dL [facility].; [place] [employer] [facility] Laboratory - Hematology and Cell countson 04-17-2021 Basophils (Bld) [#/Vol] 0.032 10*3/uL Normal 0 - 200 {cells/uL} [facility].; [facility] Basophils/100 WBC (Bld) 0.6 % Normal [facility].; [facility], [facility] Eosinophils (Bld) [#/Vol] 0.053 10*3/uL Normal 15 - 500 {cells/uL} [facility].; [place] [employer], [facility] Eosinophils/100 WBC (Bld) 1.0 % Normal [facility].; [place] [employer] [facility] Erythrocyte distribution width (RBC) [Ratio] 12.6 % Normal 11.0 - 15.0 % [facility].; [place] [employer] [facility], [facility] Hematocrit (Bld) [Volume fraction] 42.2 % Normal 35.0 - 45.0 % [facility].; [place] [employer] [facility], [facility] Hemoglobin (Bld) [Mass/Vol] 13.8 g/dL Normal 11.7 - 15.5 g/dL [facility].; [facility] Lymphocytes (Bld) [#/Vol] 1.935 10*3/uL Normal 850 - 3900 {cells/uL} [facility].; [place] [employer] [facility], [facility] Lymphocytes/100 WBC (Bld) 36.5 % Normal [facility].; [place] [employer] [facility], [facility] MCH (RBC) [Entitic mass] 29.3 pg Normal 27.0 - 33.0 pg [facility].; [place] [employer], [facility]. MCHC (RBC) [Mass/Vol] 32.7 g/dL Normal 32.0 - 36.0 g/dL [facility].; [place] [employer] [facility], [facility]. MCV (RBC) [Entitic vol] 89.6 fL Normal 80.0 - 100.0 fL [facility].; [facility], [facility]. Monocytes (Bld) [#/Vol] 0.382 10*3/uL Normal 200 - 950 {cells/uL} [facility], [facility].; [facility], [facility]. Monocytes/100 WBC (Bld) 7.2 % Normal [facility].; [facility], [facility]. Neutrophils (Bld) [#/Vol] 2.899 10*3/uL Normal 1500 - 7800 {cells/uL} [facility].; [facility], [facility]. Neutrophils/100 WBC (Bld) 54.7 % Normal [facility].; [facility], [facility]. Platelet mean volume (Bld) [Entitic vol] 11.5 fL Normal 7.5 - 12.5 fL [facility].; [facility] [employer], [facility]. Platelets (Bld) [#/Vol] 261 10*3/uL Normal 140 - 400 [facility].; [place] [employer] [facility], [facility]. RBC (Bld) [#/Vol] 4.71 10*6/uL Normal 3.80 - 5.1 0 {Million/uL} [facility].; [place] [employer], [facility]. WBC (Bld) [#/Vol] 5.3 10*3/uL Normal 3.8 - 10.8 [facility].; [place] [employer] [facility], [facility]. No Panel Informationon 04-17 BUN/CREATININE RATIO NOT APPLICABLE Normal - [facility].; [place] [employer] [facility], [facility]. CHOL/HDLC RATIO 3.[address] [facility].; [facility], [facility]. eGFR NON-AFR. GUATEMALAN 98 Normal [facility].; [facility], Inc[employer] GLOBULIN 2.5 Normal 1.9 - 3.7 [facility], [facility].; [place] [employer] NON HDL CHOLESTEROL [address] [facility].; [facility], [facility]. TSH W/REFLEX TO FT4 1.72 {mIU/L} Normal 0.40 - 4 .50 {mIU/L} [facility] [employer] [facility] [employer]. MR KNEE RIGHT WITHOUT CONTRA STon 03-30-2021 MR KNEE RIGHT WITHOUT CONTRAST EXAMINATION: MR KNEE RIGHT WITHOUT CONTRAST HISTORY: ORDERING SYSTEM PROVIDED HISTORY: R Knee pain, TECHNOLOGIST PROVIDED HISTORY: Illness/Other Reason for exam: R Knee pain, Chondromalacia of patellofemoral joint, knee pain for 1 year, medial pain Encounter Type: Initial Additional signs and symptoms: n ORDERING SYSTEM PROVIDED DIAGNOSIS CODES: M22.41 Chondromalacia of patellofemoral joint, right COMPARISON: Prior MRI 03/24/2020 from outside facility TECHNIQUE: Multiplanar, multisequence imaging of the right knee was performed without contrast FINDINGS: Laterally, the iliotibial band, fibular collateral ligament, popliteus tendon and biceps tendon are intact. The ACL intact. Lateral meniscus demonstrates normal morphology with some globular intrasubstance signal, which does not meet MRI criteria for tear. There is low-grade chondrosis of the lateral compartment without full-thickness chondral defect or subchondral marrow changes. Medially, medial collateral ligament is intact. PCL is intact. There is free edge blunting involving the body and posterior horn of the medial meniscus. No displaced meniscal fragment identified. There is a history of surgery, findings could reflect prior partial meniscectomy. There is globular signal involving the body and posterior horn of the medial meniscus. No definite evidence of discrete recurrent tear. There is low to intermediate grade chondrosis of the medial compartment without full-thickness chondral defect. Marginal osteophytes are present. The extensor mechanism is intact. Diffuse intermediate to high-grade chondrosis of the patellofemoral cartilage is present with subchondral cystic changes present along the median ridge in the medial patellar facet. There is mild thickening intermediate signal involving the proximal patellar tendon suggesting tendinosis. The remaining bone marrow signal is without fracture or osteonecrosis. A small to moderate-sized joint effusion is present. The regional musculature is unremarkable. IMPRESSION: 1. Suspect prior partial meniscectomy of the medial meniscus versus free edge radial tear. No definite displaced meniscal fragment. 2. Tricompartmental chondrosis, most significant the patellofemoral compartment, slightly progressed from prior MRI. 3. Joint effusion. Workstation ID: [id number] Dictated by: EZEQUIEL GUAJARDO on SatMar 31, 2021 9:26:36 AM EDT Transcribed by: EZEQUIEL GUAJARDO on SatMar 31, 2021 9:26:36 AM EDT Finalized by: EZEQUIEL GUAJARDO on SatMar 31, 2021 9:26:36 AM EDT [facility] Comment on above: Order Comment: Injur y/Trauma or Illness?:Illness/Other How long have you had these symptoms (acute/chronic)?:Acute Reason for exam?:R Knee pain, Chondromalacia of patellofemoral joint, knee pain for 1 year, medial pain Type of Exam?:Initial Additional signs and symptoms?:n OH ORT LARGE JOINT ARTHROCEN TESISon 11-08-2020 Hedy Morales CNP 11/08/2020 9:31 AM LG Jt Injection/Arthrocente sis: R knee Performed by: Hedy Morales CNP Authorized by: Hedy Morales CNP CPT 90459 - Large Joint Arthrocentesis: Consent given by: Patient Time out: Immediately prior to the procedure a time out was called Physician or proceduralist has discussed critical or nonroutine steps, procedure duration and anticipated blood loss: Yes Supporting Documentation: Indications: Pain, joint swelling and diagnostic evaluation Procedure Details: Location: Knee Site: R knee Prep: patient was prepped and draped in usual sterile fashion Needle size: 22 G Approach: Anterolateral Medications: 40 mg triamcinolone acetonide 40 mg/mL Anesthetic used: Lidocaine 1% Anesthetic amount (mL): 2 Patient tolerance: Patient tolerated the procedure well with no immediate complications [facility] Laboratory - Chemistry and C hemistry - challengeon 10-19-2019 Albumin [Mass/Vol] 4.5 g/dL Normal 3.6 - 5.1 g/dL [place] [employer] [facility].; [facility], [employer]. Albumin/Globulin [Mass ratio] 1.8 {ratio} Normal 1.0 - 2.5 [place] [employer] [facility].; [employer] [facility], [employer]. ALP [Catalytic activity/Vol] 86 U/L Normal 37 - 153 U/L [employer] [facility].; [employer], [employer]. ALT [Catalytic activity/Vol] 16 U/L Normal 6 - 29 U/L [employer].; [facility], [facility]. AST [Catalytic activity/Vol] 15 U/L Normal 10 - 35 U/L [facility], [facility].; [facility], [facility]. Bilirubin [Mass/Vol] 0.5 mg/dL Normal 0.2 - 1 .2 mg/dL [facility], [facility].; [facility], [facility]. Calcium [Mass/Vol] 9.5 mg/dL Normal 8.6 - 10. 4 mg/dL [facility].; [facility], [facility]. Chloride [Moles/Vol] 102 mmol/L Normal 98 - 11 0 mmol/L [facility], [facility].; [facility], [facility] Cholesterol [Mass/Vol] 220 mg/dL Abnormal [facility]; [facility], [facility] Cholesterol in HDL [Mass/Vol] 87 mg/dL Normal [facility], [facility]; [facility], [facility] Cholesterol in LDL [Mass/Vol] 118 mg/dL Abnormal [facility].; [facility], [facility]. CO2 [Moles/Vol] 31 mmol/L Normal 20 - 32 mmol/L [facility].; [facility], [facility]. Creatinine [Mass/Vol] 0.72 mg/dL Normal 0.50 - 1.05 mg/dL [facility], [facility].; [facility], [facility]. GFR/1.73 sq M.predicted among blacks MDRD (S/P/Bld) [Vol rate/Area] 106 mL/min/{1.73_m2} Normal [facility].; [facility], [facility]. Glucose [Mass/Vol] 104 mg/dL Abnormal 65 - 99 mg/dL [facility].; [facility], [facility]. Potassium [Moles/Vol] 4.4 mmol/L Normal 3.5 - 5.3 mmol/L [facility], [facility].; [facility], [facility]. Protein [Mass/Vol] 7.0 g/dL Normal 6.1 - 8.1 g/dL [facility], [facility].; [facility], [facility]. Sodium [Moles/Vol] 139 mmol/L Normal 135 - 146 mmol/L [facility], [facility].; [facility], [facility] Triglyceride [Mass/Vol] 49 mg/dL Normal [facility].; [place] [employer] [facility] Urea nitrogen [Mass/Vol] 19 mg/dL Normal 7 - 25 mg/dL [facility].; [facility] Laboratory - Hematology and Cell countson 10-19-2019 Basophils (Bld) [#/Vol] 0.028 10*3/uL Normal 0 - 200 {cells/uL} [facility].; [facility] Basophils/100 WBC (Bld) 0.5 % Normal [facility].; [facility], [facility] Eosinophils (Bld) [#/Vol] 0.09 10*3/uL Normal 15 - 500 {cells/uL} [facility].; [facility], [facility] Eosinophils/100 WBC (Bld) 1.6 % Normal [facility]; [place] [employer], [facility] Erythrocyte distribution width (RBC) [Ratio] 12.7 % Normal 11.0 - 15.0 % [facility].; [place] [employer], [facility] Hematocrit (Bld) [Volume fraction] 43.8 % Normal 35.0 - 45.0 % [facility].; [facility], [facility] Hemoglobin (Bld) [Mass/Vol] 14.6 g/dL Normal 11.7 - 15.5 g/dL [facility].; [facility], [facility] Lymphocytes (Bld) [#/Vol] 2.408 10*3/uL Normal 850 - 3900 {cells/uL} [facility].; [facility] Lymphocytes/100 WBC (Bld) 43.0 % Normal [facility].; [place] [employer] [facility]. MCH (RBC) [Entitic mass] 28.7 pg Normal 27.0 - 33.0 pg [facility].; [place] [employer] [facility], [facility]. MCHC (RBC) [Mass/Vol] 33.3 g/dL Normal 32.0 - 36.0 g/dL [facility], [facility].; [place] [employer] [facility], [facility]. MCV (RBC) [Entitic vol] 86.1 fL Normal 80.0 - 100.0 fL [facility].; [facility] Monocytes (Bld) [#/Vol] 0.51 10*3/uL Normal 200 - 950 {cells/uL} [facility].; [facility] Monocytes/100 WBC (Bld) 9.1 % Normal [facility].; [facility], [facility]. Neutrophils (Bld) [#/Vol] 2.565 10*3/uL Normal 1500 - 7800 {cells/uL} [facility].; [facility] Neutrophils/100 WBC (Bld) 45.8 % Normal [facility]; [facility] Platelet mean volume (Bld) [Entitic vol] 11.4 fL Normal 7.5 - 12.5 fL [facility]; [facility], [facility] Platelets (Bld) [#/Vol] 241 10*3/uL Normal 140 - 400 [facility]; [facility]. RBC (Bld) [#/Vol] 5.09 10*6/uL Normal 3.80 - 5.1 0 {Million/uL} [facility].; [facility], [facility]. WBC (Bld) [#/Vol] 5.6 10*3/uL Normal 3.8 - 10.8 [facility].; [place] [employer] [facility] No Panel Informationon 10-19 BUN/CREATININE RATIO NOT APPLICABLE Normal 6 - 22 [facility]; [facility] CHOL/HDLC RATIO 2.5 Normal [facility]; [facility] eGFR NON-AFR. GUATEMALAN 92 Normal [facility]; [place] [employer] [facility] GLOBULIN 2.5 Normal 1.9 - 3.7 [facility]; [facility], [facility] NON HDL CHOLESTEROL [address] [facility]; [place] [employer] [facility] TSH W/REFLEX TO FT4 1.46 {mIU/L} Normal 0.40 - 4 .50 {mIU/L} [facility]; [facility] Laboratory - Chemistry and C hemistry - challengeon 07-22-2018 Calcium [Mass/Vol] 9.4 mg/dL Normal 8.6 - 10. 4 mg/dL [facility].; [place] [employer] [facility], [facility]. Chloride [Moles/Vol] 105 mmol/L Normal 98 - 11 0 mmol/L [facility], [facility].; [place] [employer], [facility]. Cholesterol [Mass/Vol] 218 mg/dL Abnormal [facility].; [place] [employer], [facility]. Cholesterol in HDL [Mass/Vol] 86 mg/dL Normal [facility].; [place] [employer], [facility]. Cholesterol in LDL [Mass/Vol] 110 mg/dL Abnormal 0 - 100 mg/dL [facility].; [place] [employer], [facility]. Cholesterol non HDL [Mass/Vol] 131 mg/dL Abnormal [facility].; [place] [employer], [facility]. Cholesterol.total/Cho lesterol in HDL [Mass ratio] 2.5 {ratio} Normal [facility].; [place] [employer], [employer]. CO2 [Moles/Vol] 29 mmol/L Normal 20 - 32 mmol/L [facility].; [place] [employer], [employer]. Creatinine [Mass/Vol] 0.66 mg/dL Normal 0.50 - 1.05 mg/dL [facility], [facility].; [place] [employer] GFR/1.73 sq M.predicted among blacks MDRD (S/P/Bld) [Vol rate/Area] 113 {ML/MIN/1.73M2} Normal [facility], [facility].; [employer], [facility]. GFR/1.73 sq M.predicted MDRD (S/P/Bld) [Vol rate/Area] 97 {ML/MIN/1.73M2} Normal [place] [employer], [facility].; [place] [employer] Glucose [Mass/Vol] 97 mg/dL Normal 65 - 99 mg/dL [facility].; [place] [employer] Potassium [Moles/Vol] 4.3 mmol/L Normal 3.5 - 5.3 mmol/L [facility], [facility].; [place] [employer] Sodium [Moles/Vol] 140 mmol/L Normal 135 - 146 mmol/L [facility].; [place] [employer] [facility]. Triglyceride [Mass/Vol] 117 mg/dL Normal [facility].; [place] [employer] [facility]. Urea nitrogen [Mass/Vol] 14 mg/dL Normal 7 - 25 mg/dL [facility].; [place] [employer], [employer] Urea nitrogen/Creatinine [Mass ratio] 20.5 mg/mg Normal 6 - 22 [facility].; [place] [employer] [facility]. Laboratory - Hematology and Cell countson 07-22-2018 Basophils (Bld) [#/Vol] 20 {Cells}/uL Normal 0 - 200 {Cells}/uL [facility].; [place] [employer] Basophils/100 WBC (Bld) 0 % Normal 0 - 1 % [facility].; [place] [employer], [employer]. Eosinophils (Bld) [#/Vol] 90 {Cells}/uL Normal 15 - 500 {Cells}/uL [facility] East[facility].; [place] [employer]. Eosinophils/100 WBC (Bld) 1 % Normal 0 - 4 % [facility].; [employer]. Erythrocyte distribution width (RBC) [Ratio] 13.2 % Normal 11.0 - 15.0 % [place] [employer] [facility].; [place] [employer], [employer]. Hematocrit (Bld) [Volume fraction] 42.5 % Normal 35.0 - 45.0 % [place] [employer] [facility].; [place] [employer], [employer]. Hemoglobin (Bld) [Mass/Vol] 14.2 g/dL Normal 11.7 - 15.5 g/dL [facility].; [place] [employer], [facility]. Lymphocytes (Bld) [#/Vol] 2390 {Cells}/uL Normal 850 - 3900 {Cells}/uL [place] [employer].; [place] [employer], [employer]. Lymphocytes/100 WBC (Bld) 36 % Normal 12 - 47 % [place] [employer].; [place] [employer], [employer]. MCH (RBC) [Entitic mass] 28.9 pg Normal 27.0 - 33.0 PG [place] [employer].; [place] [employer], [employer]. MCHC (RBC) [Mass/Vol] 33.4 g/dL Normal 32.0 - 36.0 g/dL [facility].; [place] [employer], [employer]. MCV (RBC) [Entitic vol] 86.6 fL Normal 80.0 - 100.0 fL [facility].; [facility], [employer]. Monocytes (Bld) [#/Vol] 540 {Cells}/uL Normal 200 - 950 {Cells}/uL [facility].; [facility] [employer], [employer]. Monocytes/100 WBC (Bld) 8 % Normal 4 - 12 % [facility].; [facility] [employer], [facility]. Neutrophils (Bld) [#/Vol] 3640 {Cells}/uL Normal 1500 - 7800 {Cells}/uL [facility].; [place] [employer], [employer]. Neutrophils/100 WBC (Bld) 54 % Normal 40 - 75 % [facility].; [place] [employer], [employer]. Platelet mean volume (Bld) [Entitic vol] 9.9 fL Normal 7.5 - 12.5 fL [facility].; [place] [employer], [employer]. Platelets (Bld) [#/Vol] 253 10*3/uL Normal 140 - 400 10*3/uL [facility].; [place] [employer], [employer]. RBC (Bld) [#/Vol] 4.91 10*6/uL Normal 3.80 - 5.1 0 10*6/uL [facility].; [place] [employer], [employer]. WBC (Bld) [#/Vol] 6.7 10*3/uL Normal 3.8 - 10.8 10*3/uL [facility] [employer].; [place] [employer], [employer]. Laboratory - Chemistry and C hemistry - challengeon 11-13-2016 ALT [Catalytic activity/Vol] 24 U/L Normal 6 - 29 U/L [facility].; [place] [employer], [employer]. Cholesterol [Mass/Vol] 225 mg/dL Abnormal 125 - 200 mg/dL [facility].; [place] [employer], [employer]. Cholesterol in HDL [Mass/Vol] 61 mg/dL Normal [facility] [employer] [facility].; [place] [employer], [employer]. Cholesterol in LDL [Mass/Vol] 139 mg/dL Abnormal [facility].; [place] [employer]. Cholesterol non HDL [Mass/Vol] 164 mg/dL Abnormal [facility].; [place] [employer] [facility]. Cholesterol.total/Cho lesterol in HDL [Mass ratio] 3.7 {ratio} Normal [facility].; [place] [employer]. Triglyceride [Mass/Vol] 125 mg/dL Normal [facility].; [employer]. Laboratory - Microbiology an d Antimicrobial susceptibilityon 09-26-2016 FLUAV Ag IA Ql (Throat) Positive Abnormal [place] [employer] [facility].; [employer]. Laboratory - Chemistry and C hemistry - challengeon 05-02-2016 Calcium [Mass/Vol] 9.8 mg/dL Normal 8.6 - 10. 4 mg/dL [facility].; [place] [employer] Chloride [Moles/Vol] 105 mmol/L Normal 98 - 11 0 mmol/L [facility].; [employer]. Cholesterol [Mass/Vol] 241 mg/dL Abnormal 125 - 200 mg/dL [facility].; [employer]. Cholesterol in HDL [Mass/Vol] 68 mg/dL Normal [place] [employer] [facility].; [place] [employer]. Cholesterol in LDL [Mass/Vol] 154 mg/dL Abnormal [facility].; [place] [employer]. Cholesterol non HDL [Mass/Vol] 173 mg/dL Abnormal [place] [employer] [facility].; [employer]. Cholesterol.total/Cho lesterol in HDL [Mass ratio] 3.5 {ratio} Normal [place] [employer] [facility].; [place] [employer]. CO2 [Moles/Vol] 27 mmol/L Normal 20 - 31 mmol/L [facility].; [place] [employer]. Creatinine [Mass/Vol] 0.67 mg/dL Normal 0.50 - 1.05 mg/dL [facility].; [place] [employer], [employer]. GFR/1.73 sq M.predicted among blacks MDRD (S/P/Bld) [Vol rate/Area] 115 {ML/MIN/1.73M2} Normal [facility].; [facility] GFR/1.73 sq M.predicted MDRD (S/P/Bld) [Vol rate/Area] 99 {ML/MIN/1.73M2} Normal [facility]; [facility], [facility] Glucose [Mass/Vol] 99 mg/dL Normal 65 - 99 mg/dL [facility].; [facility], [facility] Potassium [Moles/Vol] 4.4 mmol/L Normal 3.5 - 5.3 mmol/L [facility]; [facility], [facility] Sodium [Moles/Vol] 140 mmol/L Normal 135 - 146 mmol/L [facility]; [facility], [facility] Triglyceride [Mass/Vol] 93 mg/dL Normal [facility]; [facility], [facility] Urea nitrogen [Mass/Vol] 12 mg/dL Normal 7 - 25 mg/dL [facility]; [facility], [facility] Urea nitrogen/Creatinine [Mass ratio] 18.2 mg/mg Normal 6 - 22 [facility]; [facility] Laboratory - Hematology and Cell countson 05-02-2016 Basophils (Bld) [#/Vol] 20 {Cells}/uL Normal 0 - 200 {Cells}/uL [facility]; [facility], [facility]. Basophils/100 WBC (Bld) 0 % Normal 0 - 1 % [facility]; [facility], [facility] Eosinophils (Bld) [#/Vol] 60 {Cells}/uL Normal 15 - 500 {Cells}/uL [facility].; [facility], [facility] Eosinophils/100 WBC (Bld) 1 % Normal 0 - 4 % [facility]; [facility], [facility] Erythrocyte distribution width (RBC) [Ratio] 12.9 % Normal 11.0 - 15.0 % [facility].; [facility], [facility] Hematocrit (Bld) [Volume fraction] 42.8 % Normal 35.0 - 45.0 % [facility].; [facility], [facility] Hemoglobin (Bld) [Mass/Vol] 14.1 g/dL Normal 11.7 - 15.5 g/dL [facility], [facility].; [facility] [employer], [facility]. Lymphocytes (Bld) [#/Vol] 2010 {Cells}/uL Normal 850 - 3900 {Cells}/uL [facility], [facility].; [employer] Lymphocytes/100 WBC (Bld) 34 % Normal 12 - 47 % [facility], [facility], [facility]. MCH (RBC) [Entitic mass] 28.0 pg Normal 27.0 - 33.0 PG [facility], [facility].; [employer], [facility]. MCHC (RBC) [Mass/Vol] 33.0 g/dL Normal 32.0 - 36.0 g/dL [facility], [facility].; [employer] MCV (RBC) [Entitic vol] 84.8 fL Normal 80.0 - 100.0 fL [facility], [facility].; [facility] [employer], [facility]. Monocytes (Bld) [#/Vol] 330 {Cells}/uL Normal 200 - 950 {Cells}/uL [facility].; [employer] Monocytes/100 WBC (Bld) 6 % Normal 4 - 12 % [facility], [facility].; [employer] Neutrophils (Bld) [#/Vol] 3570 {Cells}/uL Normal 1500 - 7800 {Cells}/uL [facility], [facility].; [employer] Neutrophils/100 WBC (Bld) 60 % Normal 40 - 75 % [facility] [employer], [facility].; [employer] Platelet mean volume (Bld) [Entitic vol] 10.3 fL Normal 7.5 - 11.5 fL [facility], [facility].; [employer] Platelets (Bld) [#/Vol] 224 10*3/uL Normal 140 - 400 10*3/uL [facility] [employer], [facility].; [employer] RBC (Bld) [#/Vol] 5.04 10*6/uL Normal 3.80 - 5.1 0 10*6/uL [facility] [employer] [employer] WBC (Bld) [#/Vol] 6.0 10*3/uL Normal 3.8 - 10.8 10*3/uL [place] [employer] [facility].; [employer] Vital Signs Date Time Vital Sign Value Performing Clinician Facility 02-24-2025 09:56-0400 Body height 160.66 cm Hanna Buckley LPN Work Phone: [facility].; [employer]. 02-24-2025 09:56-0400 Body mass index (BMI) [Ratio] 25.48 kg/m2 Hanna Buckley LPN Work Phone: [facility].; [place]. 02-24-2025 09:56-0400 Body surface area Derived from formula 1.69 m2 Hanna Buckley [employer]RB[employer]NER Work Phone: [place] [employer] [facility].; [employer] [facility] 02-24-2025 09:56-0400 Body weight 65.77 kg Hanna Buckley LPN Work Phone: [place] [employer].; [employer]. 02-24-2025 09:56-0400 Diastolic blood pressure 77 mm[Hg] Hanna Buckley LPN Work Phone: [place] [employer] [facility].; [employer]. Comment on above: Patient Position: Sitting; Cuff Location : Left Arm; Cuff Size: Large 02-24-2025 09:56-0400 Heart rate 78 /min Hanna Buckley LPN Work Phone: [place] [employer] [facility].; [employer]. Comment on above: Pattern: Regular 02-24-2025 09:56-0400 Systolic blood pressure 123 mm[Hg] Hanna Buckley [employer]RB[employer] PLANNER Work Phone: [employer].; [employer]. Comment on above: Patient Position: Sitting; Cuff Location : Left Arm; Cuff Size: Large 06-22-2024 16:20-0400 Body height 160.66 cm Hanna Buckley [employer]RB[employer] PLANNER Work Phone: [place] [employer].; [employer]. 06-22-2024 16:20-0400 Body mass index (BMI) [Ratio] 28.82 kg/m2 Hanna Buckley LPN Work Phone: [employer]; [employer]. 06-22-2024 16:20-0400 Body surface area Derived from formula 1.78 m2 Hanna Buckley LPN Work Phone: [employer]; [employer]. 06-22-2024 16:20-0400 Body temperature 97.7 [degF] Hanna Buckley [employer]RB[employer] PLANNER Work Phone: [employer]; [employer]. Comment on above: Method: Tympanic 06-22-2024 16:20-0400 Body weight 74.39 kg Hanna Buckley LPN Work Phone: [employer]; [employer]. 06-22-2024 16:20-0400 Diastolic blood pressure 83 mm[Hg] Hanna Buckley URBAN PLANNER Work Phone: [employer]; [employer]. Comment on above: Patient Position: Sitting; Cuff Location : Left Arm; Cuff Size: Large 06-22-2024 16:20-0400 Heart rate 73 /min Hanna Buckley URB[employer] PLANNER Work Phone: [employer]; [employer]. Comment on above: Pattern: Regular 06-22-2024 16:20-0400 Systolic blood pressure 133 mm[Hg] Hanna Jordany URBAN PLANNER Work Phone: [employer]; [employer]. Comment on above: Patient Position: Sitting; Cuff Location : Left Arm; Cuff Size: Large 02-24-2024 09:53-0400 Diastolic blood pressure 58 mm[Hg] Marsha Rosenbaum LPN [employer]; [employer]. Comment on above: Patient Position: Sitting; Cuff Location : Left Arm; Cuff Size: Standard 02-24-2024 09:53-0400 Heart rate 59 /min Marsha Rosenbaum LPN [facility].; [employer]. Comment on above: Pattern: Regular 02-24-2024 09:53-0400 Systolic blood pressure 107 mm[Hg] Marsha Rosenbaum LPN [facility].; [place] [employer]. Comment on above: Patient Position: Sitting; Cuff Location : Left Arm; Cuff Size: Standard 02-24-2024 09:48-0400 Body height 160.66 cm Marsha Rosenbaum LPN [facility], [facility].; [place] [employer] [facility]. 02-24-2024 09:48-0400 Body mass index (BMI) [Ratio] 29.35 kg/m2 Marsha Rosenbaum LPN [facility].; [place] [employer] [facility], [facility]. 02-24-2024 09:48-0400 Body surface area Derived from formula 1.8 m2 Marsha Rosenbaum LPN [facility], [facility].; [place] [employer] [facility]. 02-24-2024 09:48-0400 Body weight 75.75 kg Marsha Rosenbaum LPN [facility].; [employer] [facility]. 02-24-2024 09:48-0400 Diastolic blood pressure 87 mm[Hg] Marsha Rosenbaum LPN [facility].; [employer]. Comment on above: Patient Position: Sitting; Cuff Location : Left Arm; Cuff Size: Standard 02-24-2024 09:48-0400 Heart rate 66 /min Marsha Rosenbaum LPN [facility].; [employer]. Comment on above: Pattern: Regular 02-24-2024 09:48-0400 Systolic blood pressure 143 mm[Hg] Marsha Rosenbaum LPN [facility].; [employer]. Comment on above: Patient Position: Sitting; Cuff Location : Left Arm; Cuff Size: Standard 08-16-2023 10:45-0500 Body height 160.66 cm Cristina Mercado MD Work Phone: [place] [employer] [facility].; [employer]. 08-16-2023 10:45-0500 Body mass index (BMI) [Ratio] 29.7 kg/m2 Cristina Mercado MD Work Phone: [employer]; [employer]. 08-16-2023 10:45-0500 Body surface area Derived from formula 1.81 m2 Cristina Mercado MD Work Phone: [employer]; [employer]. 08-16-2023 10:45-0500 Body temperature 97.2 [degF] Cristina Mercado MD Work Phone: [employer]; [employer]. Comment on above: Method: Tympanic 08-16-2023 10:45-0500 Body weight 76.66 kg Cristina Mercado MD Work Phone: [employer]; [employer] 08-16-2023 10:45-0500 Diastolic blood pressure 65 mm[Hg] Cristina Mercado MD Work Phone: [employer]; [employer]. Comment on above: Patient Position: Sitting; Cuff Location : Left Arm; Cuff Size: Standard 08-16-2023 10:45-0500 Heart rate 73 /min Cristina Mercado MD Work Phone: [employer]; [employer]. Comment on above: Pattern: Regular 08-16-2023 10:45-0500 Inhaled oxygen concentration 21 % Cristina Mercado MD Work Phone: [employer]; [employer]. Comment on above: Room air 08-16-2023 10:45-0500 Inhaled oxygen concentration 20 % Cristina Mercado MD Work Phone: [employer]; [employer]. Comment on above: Room air 08-16-2023 10:45-0500 SaO2% (BldA) [Mass fraction] 100 % Cristina Mercado MD Work Phone: [employer]; [employer] 08-16-2023 10:45-0500 Systolic blood pressure 135 mm[Hg] Cristina Mercado MD Work Phone: [facility], [facility].; [place] [employer] [facility], [employer]. Comment on above: Patient Position: Sitting; Cuff Location : Left Arm; Cuff Size: Standard 05-31-2023 11:22-0400 Body height 160.66 cm Marsha Rosenbaum LPN [facility] [place] [employer] [facility], [facility] 05-31-2023 11:22-0400 Body mass index (BMI) [Ratio] 28.47 kg/m2 Marsha Rosenbaum LPN [facility], [facility].; [place] [employer] [facility], [facility]. 05-31-2023 11:22040 Body surface area Derived from formula 1.77 m2 Marsha Rosenbaum LPN [facility], [facility].; [place] [employer] [facility], [facility]. 05-31-2023 11:220400 Body temperature 97.9 [degF] Marsha Rosenbaum LPN [facility], [facility].; [employer] Comment on above: Method: Tympanic 05-31-2023 11:220400 Body weight 73.48 kg Marsha Rosenbaum LPN [facility], [facility].; [employer] 05-31-2023 11:22-0400 Diastolic blood pressure 54 mm[Hg] Marsha Rosenbaum LPN [facility], [facility].; [employer] Comment on above: Patient Position: Sitting; Cuff Location : Left Arm; Cuff Size: Standard 05-31-2023 11:22-0400 Heart rate 75 /min Marsha Rosenbaum LPN [facility], [facility].; [employer] Comment on above: Pattern: Regular 05-31-2023 11:22-0400 Systolic blood pressure 117 mm[Hg] Marsha Rosenbaum LPN [facility], [facility].; [employer], [employer]. Comment on above: Patient Position: Sitting; Cuff Location : Left Arm; Cuff Size: Standard 05-13-2023 16:12-0400 Body height 160.66 cm Hanna Buckley LPN Work Phone: [facility], [facility].; [employer] 05-13-2023 16:12-0400 Body mass index (BMI) [Ratio] 28.47 kg/m2 Hanna Buckley LPN Work Phone: [employer]; [employer]. 05-13-2023 16:12-0400 Body surface area Derived from formula 1.77 m2 Hanna Buckley URB[employer] PLANNER Work Phone: [employer].; [employer]. 05-13-2023 16:12-0400 Body temperature 97.2 [degF] Hanna Jordany [employer]RBAN PLANNER Work Phone: [employer].; [employer]. Comment on above: Method: Tympanic 05-13-2023 16:12-0400 Body weight 73.48 kg Hanna Buckley URB[employer] PLANNER Work Phone: [employer].; [employer]. 05-13-2023 16:12-0400 Diastolic blood pressure 81 mm[Hg] Hanna Jordany [employer]RB[employer] PL[employer]NER Work Phone: [employer]; [employer]. Comment on above: Patient Position: Sitting; Cuff Location : Left Arm; Cuff Size: Standard 05-13-2023 16:12-0400 Heart rate 64 /min Hanna Buckley LPN Work Phone: [employer]; [employer]. Comment on above: Pattern: Regular 05-13-2023 16:12-0400 Systolic blood pressure 130 mm[Hg] Hanna Jordany URB[employer] PLANNER Work Phone: [employer].; [employer]. Comment on above: Patient Position: Sitting; Cuff Location : Left Arm; Cuff Size: Standard 12-03-2022 14:48-0400 Body temperature 98.3 [degF] Hanna Jordany [employer]RB[employer] PL[employer]NER Work Phone: [employer].; [employer]. Comment on above: Method: Tympanic 12-03-2022 14:48-0400 Body weight 73.94 kg Hanna Jordany URBAN PLANNER Work Phone: [facility].; [employer] [facility]. 12-03-2022 14:48-0400 Diastolic blood pressure 86 mm[Hg] Hanna Marcio URBAN PLANNER Work Phone: [facility].; [employer]. Comment on above: Patient Position: Sitting; Cuff Location : Left Arm; Cuff Size: Standard 12-03-2022 14:48-0400 Heart rate 80 /min Hanna Marcio URBAN PLANNER Work Phone: [facility] [employer]; [employer]. Comment on above: Pattern: Regular 12-03-2022 14:48-0400 Systolic blood pressure 143 mm[Hg] Hanna Marcio URBAN PLANNER Work Phone: [facility] EastTierPM; [employer]. Comment on above: Patient Position: Sitting; Cuff Location : Left Arm; Cuff Size: Standard 10-25-2022 16:55-0500 Body height 160 cm [facility] 10-25-2022 16:55-0500 Body temperature 97.7 [degF] [facility] 10-25-2022 16:55-0500 Diastolic blood pressure 75 mm[Hg] [facility] 10-25-2022 16:55-0500 Heart rate 71 /min [facility] 10-25-2022 16:55-0500 Respiratory rate 16 /min [facility] 10-25-2022 16:55-0500 SaO2% (BldA) [Mass fraction] 96 % [facility] 10-25-2022 16:55-0500 Systolic blood pressure 119 mm[Hg] [facility] 12-16-2021 10:25-0400 Body height 160 cm [facility] 12-16-2021 10:25-0400 Body temperature 98.06 [degF] [facility] 12-16-2021 10:25-0400 Diastolic blood pressure 72 mm[Hg] Cristina Mercado [facility] 12-16-2021 10:25-0400 Heart rate 81 /min Cristina Mercado [facility] 12-16-2021 10:25-0400 SaO2% (BldA) [Mass fraction] 97 % Cristina Mercado [facility] 12-16-2021 10:25-0400 Systolic blood pressure 132 mm[Hg] Cristina Mercado [facility] 06-23-2021 13:38-0400 Diastolic blood pressure 81 mm[Hg] Jay Squires MD Work Phone: [facility] 06-23-2021 13:38-0400 Heart rate 61 /min Jay Squires MD Work Phone: [facility] 06-23-2021 13:38-0400 Systolic blood pressure 122 mm[Hg] Jay Squires MD Work Phone: [facility] 04-24-2021 09:55-0400 Body height [facility] Work Phone: [employer]; [employer]. 04-24-2021 09:55-0400 Body mass index (BMI) [Ratio] 29.17 kg/m2 [facility] [employer] Work Phone: [employer].; [employer]. 04-24-2021 09:55-0400 Body surface area Derived from formula 1.79 m2 Hanna Marcio URB[employer] PLANNER Work Phone: [employer].; [employer]. 04-24-2021 09:55-0400 Body weight 75.3 kg [facility] Work Phone: [employer].; [employer]. 04-24-2021 09:55-0400 Diastolic blood pressure 80 mm[Hg] Hanna Marcio URB[employer] PLANNER Work Phone: [employer].; [employer]. Comment on above: Patient Position: Sitting; Cuff Location : Left Arm; Cuff Size: Standard 04-24-2021 09:55-0400 Heart rate 60 /min Hanna Marcio URB[employer] PLANNER Work Phone: [facility], [employer].; [employer]. Comment on above: Pattern: Regular 04-24-2021 09:55-0400 Systolic blood pressure 116 mm[Hg] Hanna Marcio URB[employer] PLANNER Work Phone: [facility].; [employer]. Comment on above: Patient Position: Sitting; Cuff Location : Left Arm; Cuff Size: Standard 11-07-2020 09:04-0400 BMI (Body Mass Index) 28.87 kg/m2 [facility] 11-07-2020 09:04-0400 Body weight 73.94 kg [facility] 11-07-2020 09:04-0400 Height 160 cm [facility] 10-17-2020 14:28-0500 Body temperature 98 [degF] Gemma Mckeon LPN [facility], [facility].; [employer] 10-17-2020 14:28-0500 Body weight 76.66 kg Gemma Mckeon URBAN PLANNER [facility].; [place] [employer] 10-17-2020 14:28-0500 Diastolic blood pressure 78 mm[Hg] Gemma Mckeon LPN [facility].; [employer]. Comment on above: Patient Position: Sitting; Cuff Location : Left Arm; Cuff Size: Standard 10-17-2020 14:28-0500 Heart rate 78 /min Gemmaduke Mckeon LPN [facility].; [employer]. Comment on above: Pattern: Regular 10-17-2020 14:28-0500 Systolic blood pressure 123 mm[Hg] Gemma Thapay URBAN PLANNER [facility], [facility].; [employer]. Comment on above: Patient Position: Sitting; Cuff Location : Left Arm; Cuff Size: Standard 10-30-2019 09:36-0500 Body height 160.66 cm Hanna Jordany URBAN PLANNER Work Phone: [facility].; [employer]. 10-30-2019 09:36-0500 Body mass index (BMI) [Ratio] 27.59 kg/m2 [employer] Work Phone: [employer].; [employer] 10-30-2019 09:36-0500 Body surface area Derived from formula 1.75 m2 [employer] Work Phone: [employer].; [employer]. 10-30-2019 09:36-0500 Body weight 71.22 kg Hanna [employer] Work Phone: [employer].; [employer]. 10-30-2019 09:36-0500 Diastolic blood pressure 90 mm[Hg] Hanna Marcio URBAN PLANNER Work Phone: [employer].; [employer]. Comment on above: Patient Position: Sitting; Cuff Location : Left Arm; Cuff Size: Standard 10-30-2019 09:36-0500 Heart rate 73 /min [employer] Work Phone: [employer].; [employer]. Comment on above: Pattern: Regular 10-30-2019 09:36-0500 Systolic blood pressure 133 mm[Hg] Hanna Marcio URBAN PLANNER Work Phone: [employer].; [employer]. Comment on above: Patient Position: Sitting; Cuff Location : Left Arm; Cuff Size: Standard 07-13-2019 08:25-0500 Body height 162.56 cm Delia Swenson RN [employer].; [employer]. 07-13-2019 08:25-0500 Body mass index (BMI) [Ratio] 25.75 kg/m2 Delia Swenson RN [employer].; [facility] 07-13-2019 08:25-0500 Body surface area Derived from formula 1.73 m2 Delia Swenson RN [employer].; [employer]. 07-13-2019 08:25-0500 Body temperature 97.6 [degF] Delia Swenson RN [employer].; [employer]. Comment on above: Method: Tympanic 07-13-2019 08:25-0500 Body weight 68.04 kg Delia Swenson RN [employer].; [employer] 07-13-2019 08:25-0500 Diastolic blood pressure 78 mm[Hg] Delia Swenson RN [employer].; [employer]. Comment on above: Patient Position: Sitting; Cuff Location : Left Arm; Cuff Size: Standard 07-13-2019 08:25-0500 Heart rate 86 /min Delia Swenson RN [employer].; [employer]. Comment on above: Pattern: Regular 07-13-2019 08:25-0500 Inhaled oxygen concentration 21 % Delia Swenson RN [employer].; [employer]. Comment on above: Room air 07-13-2019 08:25-0500 Inhaled oxygen concentration 20 % Delia Swenson RN [employer].; [employer]. Comment on above: Room air 07-13-2019 08:25-0500 SaO2% (BldA) [Mass fraction] 99 % Delia Swenson RN [employer].; [employer] 07-13-2019 08:25-0500 Systolic blood pressure 118 mm[Hg] Delia Swenson RN [employer].; [employer]. Comment on above: Patient Position: Sitting; Cuff Location : Left Arm; Cuff Size: Standard 08-01-2018 14:51-0500 Body height 162.56 cm [facility] Work Phone: [employer].; [employer]. 08-01-2018 14:51-0500 Body mass index (BMI) [Ratio] 29.35 kg/m2 [facility] Work Phone: [employer].; [employer]. 08-01-2018 14:51-0500 Body surface area Derived from formula 1.83 m2 Hanna Marcio URBAN PLANNER Work Phone: [employer].; [employer]. 08-01-2018 14:51-0500 Body weight 77.57 kg Hanna Marcio URBAN PLANNER Work Phone: [employer].; [employer]. 08-01-2018 14:51-0500 Diastolic blood pressure 75 mm[Hg] Hanna Buckley URBAN PLANNER Work Phone: [employer].; [employer]. Comment on above: Patient Position: Sitting; Cuff Location : Left Arm; Cuff Size: Standard 08-01-2018 14:51-0500 Heart rate 78 /min Hanna Buckley URBAN PLANNER Work Phone: [employer]; [employer]. Comment on above: Pattern: Regular 08-01-2018 14:51-0500 Systolic blood pressure 127 mm[Hg] Hanna Buckley LPN Work Phone: [employer].; [employer]. Comment on above: Patient Position: Sitting; Cuff Location : Left Arm; Cuff Size: Standard 06-30-2018 08:12-0500 Body height 162.56 cm Cristina Mercado MD Work Phone: [employer].; [employer]. 06-30-2018 08:12-0500 Body mass index (BMI) [Ratio] 29.06 kg/m2 Cristina Mercado MD Work Phone: [employer].; [employer]. 06-30-2018 08:12-0500 Body surface area Derived from formula 1.82 m2 Cristina Mercado MD Work Phone: [employer].; [employer]. 06-30-2018 08:12-0500 Body temperature 97.5 [degF] Cristina Mercado MD Work Phone: [employer]; [employer]. Comment on above: Method: Tympanic 06-30-2018 08:12-0500 Body weight 76.79 kg Cristina Mercado MD Work Phone: [employer].; [employer]. 06-30-2018 08:12-0500 Diastolic blood pressure 89 mm[Hg] Cristina Mercado MD Work Phone: [employer].; [employer]. Comment on above: Patient Position: Sitting; Cuff Location : Left Arm; Cuff Size: Standard 06-30-2018 08:12-0500 Heart rate 76 /min Cristina Mercado MD Work Phone: [employer].; [employer]. Comment on above: Pattern: Regular 06-30-2018 08:12-0500 Inhaled oxygen concentration 21 % Cristina Mercado MD Work Phone: [employer]; [employer]. Comment on above: Room air 06-30-2018 08:12-0500 Inhaled oxygen concentration 20 % Cristina Mercado MD Work Phone: [employer].; [employer]. Comment on above: Room air 06-30-2018 08:12-0500 SaO2% (BldA) [Mass fraction] 98 % Cristina Mercado MD Work Phone: [employer].; [employer]. 06-30-2018 08:12-0500 Systolic blood pressure 126 mm[Hg] Cristina Mercado MD Work Phone: [employer]; [employer]. Comment on above: Patient Position: Sitting; Cuff Location : Left Arm; Cuff Size: Standard 03-14-2018 14:59-0400 Body height 162.56 cm [facility] Work Phone: [employer]; [employer]. 03-14-2018 14:59-0400 Body mass index (BMI) [Ratio] 29.18 kg/m2 [facility] Work Phone: [employer].; [employer]. 03-14-2018 14:59-0400 Body surface area Derived from formula 1.83 m2 Hanna Buckley LPN Work Phone: [employer].; [employer]. 03-14-2018 14:59-0400 Body weight 77.11 kg Hanna Buckley LPN Work Phone: [employer].; [employer]. 03-14-2018 14:59-0400 Diastolic blood pressure 100 mm[Hg] Hanna Buckley LPN Work Phone: [employer].; [employer]. Comment on above: Patient Position: Sitting; Cuff Location : Left Arm; Cuff Size: Standard 03-14-2018 14:59-0400 Heart rate 62 /min Hanna Buckley LPN Work Phone: [employer]; [employer]. Comment on above: Pattern: Regular 03-14-2018 14:59-0400 Systolic blood pressure 149 mm[Hg] Hanna Buckley LPN Work Phone: [employer].; [employer]. Comment on above: Patient Position: Sitting; Cuff Location : Left Arm; Cuff Size: Standard 06-13-2017 08:22-0400 Body height 162.56 cm Amina Alvarado LPN [employer]. 06-13-2017 08:22-0400 Body mass index (BMI) [Ratio] 30.21 kg/m2 Amina Alvarado LPN [employer].; [employer]. 06-13-2017 08:22-0400 Body surface area Derived from formula 1.85 m2 Amina Alvarado LPN [employer].; [employer]. 06-13-2017 08:22-0400 Body temperature 97.9 [degF] [facility].; [employer]. Comment on above: Method: Tympanic 06-13-2017 08:22-0400 Body weight 79.83 kg Amina Annarajwinder MORGAN [facility] 06-13-2017 08:22-0400 Diastolic blood pressure 79 mm[Hg] Amina Christiano MORGAN [facility], [employer]. Comment on above: Patient Position: Sitting; Cuff Location : Left Arm; Cuff Size: Standard 06-13-2017 08:22-0400 Heart rate 84 /min Aminaginger Alvarado LPN [facility].; [facility] Comment on above: Pattern: Regular 06-13-2017 08:22-0400 Inhaled oxygen concentration 21 % Amina Wilfridorajwinder MORGAN [place] [employer] [facility] Comment on above: Room air 06-13-2017 08:22-0400 Inhaled oxygen concentration 20 % Amina Wilfridorajwinder GOODEN [place] [employer] [facility], [facility].; [facility] Comment on above: Room air 06-13-2017 08:22-0400 SaO2% (BldA) [Mass fraction] 97 % Amina Werajwinder [facility] [employer] [facility] 06-13-2017 08:22-0400 Systolic blood pressure 130 mm[Hg] Amina Christiano MORGAN [employer] [facility], [employer]. Comment on above: Patient Position: Sitting; Cuff Location : Left Arm; Cuff Size: Standard 09-26-2016 08:130500 Body height 162.56 cm Cristina Mercado MD Work Phone: [employer]. 09-26-2016 08:13-0500 Body mass index (BMI) [Ratio] 29.18 kg/m2 Cristina Mercado MD Work Phone: [employer]. 09-26-2016 08:130500 Body surface area Derived from formula 1.83 m2 Cristina Mercado MD Work Phone: [employer]; [employer]. 09-26-2016 08:13-0500 Body temperature 100.4 [degF] Cristina Mercado MD Work Phone: [employer]. 09-26-2016 08:13-0500 Body weight 77.11 kg Cristina Mercado MD Work Phone: [employer]. 09-26-2016 08:13-0500 Diastolic blood pressure 77 mm[Hg] Cristina Mercado MD Work Phone: [employer].; [employer]. Comment on above: Patient Position: Sitting; Cuff Location : Left Arm; Cuff Size: Standard 09-26-2016 08:13-0500 Heart rate 81 /min Cristina Mercado MD Work Phone: [employer]; [employer]. Comment on above: Pattern: Regular 09-26-2016 08:13-0500 Inhaled oxygen concentration 21 % Cristina Mercado MD Work Phone: [employer]; [employer]. Comment on above: Room air 09-26-2016 08:13-0500 Inhaled oxygen concentration 20 % Cristina Mercado MD Work Phone: [employer]; [employer]. Comment on above: Room air 09-26-2016 08:13-0500 SaO2% (BldA) [Mass fraction] 96 % Cristina Mercado MD Work Phone: [employer]; [employer]. 09-26-2016 08:13-0500 Systolic blood pressure 114 mm[Hg] Cristina Mercado MD Work Phone: [employer]. Comment on above: Patient Position: Sitting; Cuff Location : Left Arm; Cuff Size: Standard 05-09-2016 09:54-0400 [facility] Work [facility]: [employer]; [employer] 05-09-2016 09:54-0400 Body mass index (BMI) [Ratio] 28.49 kg/m2 Hannamarvin Jordany [employer] Work Phone: [employer].; [facility] 05-09-2016 09:54-0400 Body surface area Derived from formula 1.81 m2 Hannamarvin Jordany [employer]NER Work Phone: [employer].; [facility] 05-09-2016 09:54-0400 Body weight 75.3 kg Hanna Jordany [employer]RB[employer]NER Work Phone: [employer].; [facility] 05-09-2016 09:54-0400 Diastolic blood pressure 76 mm[Hg] Hanna Jodrany [employer]RB[employer]NER Work Phone: [employer].; [employer]. Comment on above: Patient Position: Sitting; Cuff Location : Left Arm; Cuff Size: Standard 05-09-2016 09:54-0400 Heart rate 67 /min Hanna Jordany [employer]RB[employer]NER Work Phone: [employer].; [employer]. Comment on above: Pattern: Regular 05-09-2016 09:54-0400 Systolic blood pressure 125 mm[Hg] Hanna Jordany [employer]RB[employer]NER Work Phone: [employer].; [employer]. Comment on above: Patient Position: Sitting; Cuff Location : Left Arm; Cuff Size: Standard 04-11-2016 11:45-0400 Body height 166.37 cm Hanna Marcio [employer]RB[employer]NER Work Phone: [employer]. 04-11-2016 11:45-0400 Body mass index (BMI) [Ratio] 27.2 kg/m2 Hanna Marcio [employer]RB[employer]NER Work Phone: [employer].; [employer] 04-11-2016 11:45-0400 Body surface area Derived from formula 1.84 m2 Hanna Marcio [employer]RB[employer]NER Work Phone: [employer]. 04-11-2016 11:45-0400 Body weight 75.3 kg Hanna Buckley LPN Work Phone: [employer].; [employer]. 04-11-2016 11:45-0400 Diastolic blood pressure 98 mm[Hg] Hanna Buckley LPN Work Phone: [employer]. Comment on above: Patient Position: Sitting; Cuff Location : Left Arm; Cuff Size: Large 04-11-2016 11:45-0400 Heart rate 60 /min Hanna Buckley LPN Work Phone: [employer]; [employer]. Comment on above: Pattern: Regular 04-11-2016 11:45-0400 Systolic blood pressure 139 mm[Hg] Hanna Buckley LPN Work Phone: [employer]; [employer]. Comment on above: Patient Position: Sitting; Cuff Location : Left Arm; Cuff Size: Large 01-20-2014 08:11-0400 Body height 166.37 cm Galilea Stanton LPN [facility] [employer]. 01-20-2014 08:11-0400 Body mass index (BMI) [Ratio] 29.66 kg/m2 Galilea Stanton LPN [employer]. 01-20-2014 08:11-0400 Body surface area Derived from formula 1.91 m2 Galilea Stanton LPN [employer]. 01-20-2014 08:11-0400 Body temperature 97.7 [degF] Galilea Stanton LPN [employer]. Comment on above: Method: Tympanic 01-20-2014 08:11-0400 Body weight 82.1 kg Galilea Stanton LPN [employer]. 01-20-2014 08:11-0400 Diastolic blood pressure 76 mm[Hg] Galilea Stanton [facility] [employer]. Comment on above: Patient Position: Sitting; Cuff Location : Left Arm; Cuff Size: Standard 01-20-2014 08:11-0400 Heart rate 64 /min Galilea Lalach [facility] [employer] [facility] [employer]. Comment on above: Pattern: Regular 01-20-2014 08:110400 Inhaled oxygen concentration 21 % Galilea Stanton [facility].; [employer]. Comment on above: Room air 01-20-2014 08:110400 Inhaled oxygen concentration 20 % Galilea Stanton [facility].; [employer]. Comment on above: Room air 01-20-2014 08:11-0400 SaO2% (BldA) [Mass fraction] 99 % Galilea Lalach [facility] [employer]. 01-20-2014 08:11-0400 Systolic blood pressure 124 mm[Hg] Galilea [facility] [employer]. Comment on above: Patient Position: Sitting; Cuff Location : Left Arm; Cuff Size: Standard 11-16-2013 08:25-0400 Body height 166.37 cm Cristina Mercado MD Work Phone: [employer]. 11-16-2013 08:25-0400 Body mass index (BMI) [Ratio] 29.24 kg/m2 Cristina Mercado MD Work Phone: [employer]. 11-16-2013 08:25-0400 Body surface area Derived from formula 1.89 m2 Cristina Mercado MD Work Phone: [employer]. 11-16-2013 08:25-0400 Body temperature 97.6 [degF] Cristina Mercado MD Work Phone: [employer].; [employer] Comment on above: Method: Tympanic 11-16-2013 08:25-0400 Body weight 80.92 kg Cristina Mercado MD Work Phone: [employer]. 11-16-2013 08:25-0400 Diastolic blood pressure 91 mm[Hg] Cristina Mercado MD Work Phone: [employer]. Comment on above: Patient Position: Sitting; Cuff Location : Left Arm; Cuff Size: Standard 11-16-2013 08:25-0400 Heart rate 74 /min Cristina Mercado MD Work Phone: [employer]. Comment on above: Pattern: Regular 11-16-2013 08:25-0400 Inhaled oxygen concentration 21 % Cristina Mercado MD Work Phone: [employer]; [employer]. Comment on above: Room air 11-16-2013 08:25-0400 Inhaled oxygen concentration 20 % Cristina Mercado MD Work Phone: [employer]; [employer]. Comment on above: Room air 11-16-2013 08:25-0400 SaO2% (BldA) [Mass fraction] 96 % Cristina Mercado MD Work Phone: [employer]. 11-16-2013 08:25-0400 Systolic blood pressure 131 mm[Hg] Cristina Mercado MD Work Phone: [employer]. Comment on above: Patient Position: Sitting; Cuff Location : Left Arm; Cuff Size: Standard 08-16-2012 09:38-0500 Body height 166.37 cm Galilea Stanton LPN [place] [facility].; [employer]. 08-16-2012 09:38-0500 Body mass index (BMI) [Ratio] 29.5 kg/m2 Galilea Stanton LPN [place] [facility].; [employer]. 08-16-2012 09:38-0500 Body surface area Derived from formula 1.9 m2 Galilea Stanton [facility].; [employer] [facility]. 08-16-2012 09:38-0500 Body temperature 96.5 [degF] Galilea Stanton [employer]RB[employer] PLANNER [facility].; [employer]. Comment on above: Method: Tympanic 08-16-2012 09:38-0500 Body weight 81.65 kg Galilea Stanton [employer]NER [facility].; [employer]. 08-16-2012 09:38-0500 Diastolic blood pressure 92 mm[Hg] Galilea Stanton [facility].; [employer]. Comment on above: Patient Position: Sitting; Cuff Location : Left Arm; Cuff Size: Standard 08-16-2012 09:38-0500 Heart rate 57 /min Galilea Stanton [facility].; [employer]. Comment on above: Pattern: Regular 08-16-2012 09:38-0500 Systolic blood pressure 136 mm[Hg] Galilea Stanton [facility].; [employer]. Comment on above: Patient Position: Sitting; Cuff Location : Left Arm; Cuff Size: Standard 06-30-2012 11:00-0500 Body height 166.37 cm Hanna Marcio [facility] Work Phone: [place] [employer]. 06-30-2012 11:00-0500 Body mass index (BMI) [Ratio] 29.17 kg/m2 [facility] Work Phone: [employer].; [employer] 06-30-2012 11:00-0500 Body surface area Derived from formula 1.89 m2 [facility] Work Phone: [employer]. 06-30-2012 11:00-0500 Body weight 80.74 kg Hanna Marcio [facility] Work Phone: [employer]. 06-30-2012 11:00-0500 Diastolic blood pressure 86 mm[Hg] Hanna Marcio [employer] Work Phone: [employer]. Comment on above: Patient Position: Sitting; Cuff Location : Left Arm; Cuff Size: Large 06-30-2012 11:00-0500 Heart rate 72 /min Hanna Marcio [employer]NER Work Phone: [employer]. Comment on above: Pattern: Regular 06-30-2012 11:00-0500 Systolic blood pressure 123 mm[Hg] Hanna Marcio [employer]NER Work Phone: [employer]. Comment on above: Patient Position: Sitting; Cuff Location : Left Arm; Cuff Size: Large 12-26-2011 16:12-0400 Body temperature 97.4 [degF] Hanna Marcio [employer]NER Work Phone: [employer]. Comment on above: Method: Tympanic 12-26-2011 16:12-0400 Body weight 82.56 kg Hanna Marcio [employer]RB[employer]NER Work Phone: [employer]. 12-26-2011 16:12-0400 Diastolic blood pressure 90 mm[Hg] Hanna Marcio [employer]RB[employer]NER Work Phone: [employer]. Comment on above: Patient Position: Sitting; Cuff Location : Right Arm; Cuff Size: Large 12-26-2011 16:12-0400 Heart rate 64 /min Hanna Marcio [employer]RB[employer]NER Work Phone: [employer]. Comment on above: Pattern: Regular 12-26-2011 16:12-0400 Systolic blood pressure 136 mm[Hg] Hanna Marcio [employer]RB[employer]NER Work Phone: [employer]. Comment on above: Patient Position: Sitting; Cuff Location : Right Arm; Cuff Size: Large 05-03-2011 08:11-0400 Body height 166.37 cm Cristina Mercado MD Work Phone: [employer]; [employer]. 05-03-2011 08:11-0400 Body mass index (BMI) [Ratio] 29.17 kg/m2 Cristina Mercado MD Work Phone: [employer]; [employer]. 05-03-2011 08:11-0400 Body surface area Derived from formula 1.89 m2 Cristina Mercado MD Work Phone: [employer]; [employer]. 05-03-2011 08:11-0400 Body temperature 97.3 [degF] Cristina Mercado MD Work Phone: [employer]; [employer]. Comment on above: Method: Tympanic 05-03-2011 08:11-0400 Body weight 80.74 kg Cristina Mercado MD Work Phone: [employer]; [employer]. 05-03-2011 08:11-0400 Diastolic blood pressure 84 mm[Hg] Cristina Mercado MD Work Phone: [employer]; [employer]. Comment on above: Patient Position: Sitting; Cuff Location : Left Arm; Cuff Size: Standard 05-03-2011 08:11-0400 Heart rate 76 /min Cristina Mercado MD Work Phone: [employer]; [employer]. Comment on above: Pattern: Regular 05-03-2011 08:11-0400 Systolic blood pressure 133 mm[Hg] Cristina Mercado MD Work Phone: [employer]; [employer]. Comment on above: Patient Position: Sitting; Cuff Location : Left Arm; Cuff Size: Standard Encounters Encounter Date Encounter Type Care Provider Facility Start: 07-08-2025 jeffry Funes ty:[facility] Start: 07-02-2025 Encounter for other preprocedural examination Luis Jayesh [facility] Start: 03-22-2025 End: 03-22-2025 Patient encounter procedure Diomedes Brady OD Work Phone: Optometry Comment on above: Myopia of both eyes (Primary Dx); Regular astigmatism of both eyes; Presbyopia Start: 03-22-2025 End: 03-22-2025 ambulatory DIOMEDES BRADY Facility:[facility] Start: 02-24-2025 End: 02-24-2025 Patient encounter procedure Cristnia Mercado MD [facility] Phone[facility] Start: 02-24-2025 Patient encounter procedure Hanna Buckley LPN Work Phone: [facility] Start: 02-01-2025 End: 02-01-[address] Cristina Mercado MD Work Phone: [facility] Work Phone: Start: 02-01-2025 End: 02-01-2025 Patient encounter procedure Kamilla Calvo PIPING MANAGER[facility] Work Phone: Start: 02-01-2025 End: 02-01-2025 ambulatory Cristina Mercado Facility:[facility] Start: 12-18-2024 End: 12-18-2024 Orders Cristina Mercado MD Work Phone: [facility] Start: 10-13-2024 End: 10-13-2024 ambulatory DIOMEDES BRADY Facility:[facility] Start: 10-13-2024 End: 10-13-2024 Patient encounter procedure Diomedes Brady OD Work Phone: Optometry Comment on above: Episcleritis of both eyes (Primary Dx); Pinguecula, bilateral Start: 09-28-2024 End: 09-28-2024 ambulatory DIOMEDES BRADY Facility:[facility] Start: 09-28-2024 End: 09-28-2024 Patient encounter procedure Diomedes Yapmary OD Work Phone: Optometry Comment on above: Episcleritis of both eyes (Primary Dx); Pinguecula, bilateral Start: 08-07-2024 End: 08-07-2024 ambulatory LAURIE BISHOP [facility] Start: 07-28-2024 End: 07-28-2024 ambulatory Cristina Mercado Facility:[facility] Start: 06-22-2024 End: 06-22-2024 Office outpatient visit 15 minutes Cristina Mercado MD Work Phone: [employer] Start: 04-17-2024 End: 04-17-2024 Historical Summary Cristina Mercado MD Work Phone: [employer] Start: 04-15-2024 End: 04-15-2024 ambulatory LAURIE BISHOP [facility] Start: 03-16-2024 End: 03-16-2024 Patient encounter procedure Diomedes Diazhollis OD Work Phone: Optometry Comment on above: Myopia of both eyes (Primary Dx); Presbyopia Start: 03-04-2024 End: 03-04-2024 Orders Cristina Mercado MD Work Phone: [employer] Start: 03-03-2024 End: 03-03-2024 Patient encounter procedure Diomedes Brady OD Work Phone: Optometry Comment on above: Myopia of both eyes (Primary Dx); Regular astigmatism of left eye; Presbyopia Start: 02-25-2024 Review Cristina mancia MD Work Phone: [employer] Start: 02-24-2024 End: 02-24-2024 Patient encounter procedure Cristina Mercado MD Work Phone: [employer] Start: 02-24-2024 Patient encounter procedure Marsha Rosenbaum LPN [employer] Start: 02-18-2024 End: 02-18-2024 Orders Cristina Mercado MD Work Phone: [employer] Start: 01-01-2024 End: 01-01-2024 Orders Cristina Mercado MD Work Phone: [employer] Start: 12-31-2023 End: 12-31-2023 ambulatory [facility] Start: 12-13-2023 End: 12-13-2023 ambulatory [facility] Start: 11-13-2023 End: 12-13-2023 ambulatory [facility] Start: 08-16-2023 End: 08-16-2023 Office outpatient visit 15 minutes Cristina Mercado MD Work Phone: [employer] Start: 05-31-2023 End: 05-31-2023 Patient encounter procedure Cristina Mercado MD Work Phone: [employer] Start: 05-13-2023 End: 05-13-2023 Patient encounter procedure Cristina Mercado MD Work Phone: [employer] Start: 12-03-2022 End: 12-03-2022 Patient encounter procedure Cristina Mercado MD Work Phone: [employer] Start: 10-25-2022 End: 10-25-2022 Emergency department patient visit Brennen Lang [facility] Start: 12-16-2021 End: 12-16-2021 Emergency department patient visit Delia Buckley [facility] Start: 12-04-2021 End: 12-04-2021 Patient encounter procedure Diomedes Brady OD Work Phone: Optometry Comment on above: Myopia of both eyes (Primary Dx); Presbyopia Start: 11-20-2021 End: 11-20-2021 Patient encounter procedure Diomedes Brady OD Work Phone: Optometry Comment on above: Myopia of both eyes (Primary Dx); Presbyopia Start: 08-23-2021 [facility] Start: 08-17-2021 End: 08-21-2021 ambulatory JAY MOSS [facility] Start: 08-17-2021 End: 08-17-2021 Postop follow up visit related to original px Jay Squires MD Work Phone: [facility] Comment on above: Status post total ri ght knee replacement (Primary Dx) Start: 07-19-2021 End: 07-19-2021 ambulatory JAY MOSS [facility]AV[facility] Start: 07-19-2021 End: 07-19-2021 Postop follow up visit related to original px Jay Squires MD Work Phone: [facility] Comment on above: Status post total ri ght knee replacement (Primary Dx) Start: 07-12-2021 Marisol Shay LPN [facility] Comment on above: S/P total knee repla cement not using cement, right (Primary Dx) Start: 07-03-2021 End: 07-03-2021 ambulatory [facility] Start: 06-23-2021 End: 06-23-2021 ambulatory [facility] Start: 06-23-2021 End: 06-23-2021 Office outpatient visit 15 minutes Jay Squires MD Work Phone: [facility] Comment on above: Chondromalacia of pa tellofemoral joint, right (Primary Dx); Arthritis of right knee Start: 06-15-2021 End: 06-19-2021 ambulatory CRISTINA MERCADO [facility] Start: 06-12-2021 End: 06-12-2021 ambulatory [facility] Start: 04-24-2021 End: 04-24-2021 Patient encounter procedure Cristina Mercado MD Work Phone: [facility]. Start: 04-24-2021 End: 04-24-2021 Patient encounter status Hanna Buckley LPN Work Phone: [facility].; [facility]. Start: 04-17-2021 End: 04-17-2021 Orders Cristina Mercado MD Work Phone: [employer]. Start: 04-11-2021 Admission to [facility] Jay Squires MD Work Phone: [facility] Comment on above: Chondromalacia of pa tellofemoral joint, right (Primary Dx); Hypertension, unspecified type Start: 04-04-2021 End: 04-04-2021 ambulatory HEDY KAYE [facility] Start: 04-04-2021 End: 04-04-2021 Office outpatient visit 25 minutes Hedy Morales [employer] Work Phone: [facility] Comment on above: Chondromalacia of pa tellofemoral joint, right (Primary Dx) Start: 03-30-2021 End: 03-31-2021 ambulatory HEDY ANNE [facility] Start: 03-15-2021 End: 03-15-2021 ambulatory [facility] Start: 03-15-2021 End: 03-15-2021 Office outpatient visit 10 minutes Heyd Morales CNP Work Phone: [facility] Comment on above: Chondromalacia of pa tellofemoral joint, right (Primary Dx) Start: 03-14-2021 End: 03-20-2021 Orders Cristina Mercado MD Work Phone: [employer]. Start: 11-09-2020 [facility] Start: 11-07-2020 End: 11-07-2020 ambulatory HEDY VARGAS [facility] Start: 11-07-2020 End: 11-07-2020 Office outpatient new 30 minutes Hedy Morales Work Phone: [facility] Comment on above: Chondromalacia of pa tellofemoral joint, right (Primary Dx) Start: 11-04-2020 End: 11-05-2020 Patient encounter procedure HEDYDerrick MORALES [facility] Start: 11-04-2020 End: 11-04-2020 Subsequent hospital visit by physician Hedy Morales Work Phone: [facility] Comment on above: Arrived Start: 10-31-2020 [facility] Start: 10-17-2020 End: 10-17-2020 Office outpatient visit 15 minutes Cristina Mercado MD Work Phone: [employer] Start: 08-29-2020 End: 08-29-2020 Historical Summary Cristina Mercado MD Work Phone: [employer] Start: 12-30-2019 End: 12-30-2019 Historical Summary Cristina Mercado MD Work Phone: [employer] Start: 11-18-2019 End: 11-18-2019 Orders Cristina Mercado MD Work Phone: [employer] Start: 10-30-2019 End: 10-30-2019 Patient encounter procedure Cristina Mercado MD Work Phone: [employer] Start: 10-30-2019 End: 10-30-2019 Patient encounter status Cristina Mercado MD Work Phone: [employer]; [employer] Start: 10-19-2019 End: 10-19-2019 Orders Cristina Mercado MD Work Phone: [employer] Start: 10-15-2019 End: 10-15-2019 Orders Cristina Mercado MD Work Phone: [employer] Start: 07-13-2019 End: 07-13-2019 Office outpatient visit 15 minutes Cristina Mercado MD Work Phone: [employer] Start: 09-01-2018 End: 09-01-2018 Historical Summary Cristina Mercado MD Work Phone: [employer] Start: 08-01-2018 End: 08-01-2018 Patient encounter procedure Cristina Mercado MD Work Phone: [employer] Start: 08-01-2018 End: 08-01-2018 Patient encounter status Cristina Mercado MD Work Phone: [employer]; [employer]. Start: 07-22-2018 End: 07-22-2018 Orders Cristina Mercado MD Work Phone: [employer] Start: 07-21-2018 End: 07-21-2018 Orders rCistina Mercado MD Work Phone: [employer] Start: 06-30-2018 End: 06-30-2018 Office outpatient visit 25 minutes Cristina Mercado MD Work Phone: [employer] Start: 04-03-2018 End: 04-03-2018 Orders Cristina Mercado MD Work Phone: [employer] Start: 03-21-2018 End: 03-21-2018 Historical Summary Cristina Mercado MD Work Phone: [employer] Start: 03-14-2018 End: 03-17-2018 Office outpatient visit 25 minutes Cristina Mercado MD Work Phone: [employer] Start: 06-28-2017 End: 06-28-2017 Medication Cristina Mercado MD Work Phone: [employer] Start: 06-13-2017 End: 06-13-2017 Office outpatient visit 15 minutes Cristina Mercado MD Work Phone: [employer] Start: 11-13-2016 End: 11-14-2016 Orders Cristina Mercado MD Work Phone: [employer] Start: 09-26-2016 End: 09-26-2016 Patient encounter procedure Cristina Mercado MD Work Phone: [employer] Start: 06-07-2016 End: 06-07-2016 Historical Summary Cristina Mercado MD Work Phone: [employer] Start: 05-09-2016 End: 05-09-2016 Patient encounter procedure Cristina Mercado MD Work Phone: [employer] Start: 05-09-2016 End: 05-09-2016 Patient encounter status Cristina Mercado MD Work Phone: [employer]; [employer]. Start: 05-02-2016 End: 05-03-2016 Orders Cristina Mercado MD Work Phone: [employer]. Start: 04-11-2016 End: 04-11-2016 Orders Cristina Mercado MD Work Phone: [employer]. Start: 04-11-2016 End: 04-11-2016 Patient encounter procedure Cristina Mercado MD Work Phone: [employer] Start: 01-20-2014 End: 01-20-2014 Patient encounter procedure Cristina Mercado MD Work Phone: [employer] Start: 12-02-2013 End: 12-02-2013 Medication Cristina Mercado MD Work Phone: [employer] Start: 11-16-2013 End: 11-16-2013 Patient encounter procedure Cristina Mercado MD Work Phone: [employer] Start: 03-19-2013 End: 03-19-2013 Patient encounter procedure Cristina Mercado MD Work Phone: [employer] Start: 08-16-2012 End: 08-17-2012 Patient encounter procedure Cristina Mercado MD Work Phone: [employer] Start: 06-30-2012 End: 06-30-2012 Patient encounter procedure Cristina Mercado MD Work Phone: [employer] Start: 06-30-2012 End: 06-30-2012 Routine general medical examination at a health care facility Cristina Mercado MD Work Phone: [employer]; [employer]. Start: 12-26-2011 End: 12-26-2011 Patient encounter procedure Cristina Mercado MD [facility]: [facility] [employer] Start: 05-03-2011 End: 05-03-2011 Patient encounter procedure Cristina Mercado MD Work Phone: [facility] Procedures Date Procedure Procedure Detail Performing Clinician Start: 02-24-2025 End: 02-24-2025 Alcohol consumption screening Cristina elliott MD Work Phone: Comment on above: neg Start: 02-24-2025 End: 02-24-2025 Body mass index documented Cristina hodges MD Work Phone: Start: 02-24-2025 End: 02-24-2025 Current tobacco non-user cad cap copd pv dm Cristina Mercado MD Work Phone: Start: 02-24-2025 End: 02-24-2025 Depression screening Cristina Mercado MD Work Phone: Start: 02-24-2025 End: 02-24-2025 Most recent diastolic blood pressure < 80 mm hg Cristina Mercado MD Work Phone: Start: 02-24-2025 End: 02-24-2025 Most recent systolic blood pressure <130 mm hg Cristina Mercado MD Work Phone: Start: 02-24-2025 End: 02-24-2025 Pos clin depres scrn f/u doc Cristina demarco MD Work Phone: Start: 02-24-2025 End: 02-24-2025 Scr dep neg, no plan reqd Cristina chakraborty MD Work Phone: Start: 02-01-[address] Cristina Mercado MD Work Phone: Start: 12-18-2024 End: 12-18-2024 Lab findings surveillance Hanna Buckley L PN Work Phone: Comment on above: Normal. 87 Start: 12-18-2024 End: 12-18-2024 Lipid panel Hanna Buckley [employer] Work Phone: Comment on above: Abnormal. tc 210 hdl 64 ldl 129 trig 74 Start: 04-15-2024 End: 04-15-2024 pelvic u/s Cristina Mercado MD Work Phone: Comment on above: Abnormal. thickend endometrium, cyst in bladder Start: 02-24-2024 End: 02-24-2024 Depression screening Cristina Mercado MD Work Phone: Start: 02-24-2024 End: 02-24-2024 Pos clin depres scrn f/u doc Cristina demarco MD Work Phone: Start: 02-24-2024 End: 02-24-2024 Scr dep neg, no plan reqd Cristina chakraborty MD Work Phone: Start: 02-18-2024 End: 02-18-2024 Lab findings surveillance Marsha Rosenbaum LPN Comment on above: Normal. 102 Start: 02-18-2024 End: 02-18-2024 Lipid panel Marsha Rosenbaum LPN Comment on above: Abnormal. tc 257 ldl 160 hdl 79 trig 78- --on tx Start: 12-31-2023 End: 12-31-2023 Screening mammography Cristina Mercado MD Work Phone: Comment on above: Abnormal. hilda, 08/22/2020, neg with r ight spot compression, 09/27/21 neg, 09/27/22 neg, 12/13/2023 left u/s follow up pending, 12/31/23 mammo and follow up unilateral u.s Within Normal Limits . hilda, 08/22/2020, neg with right spot compression, 09/27/21 neg, 09/27/22 neg, 12/13/2023 left u/s follow up pending, 12/31/23 mammo and follow up unilateral u.s, 08/07/24 left unilateral follow up unchanged, neg Start: 12-13-2023 End: 12-13-2023 Screening mammography Cristina Mercado MD Work Phone: Comment on above: Abnormal. hilda, 08/22/2020, neg with r ight spot compression, 09/27/21 neg, 09/27/22 neg, 12/13/2023 left u/s follow up pending Start: 09-27-2022 End: 09-27-2022 Screening mammography Cristina Mercado MD Work Phone: Comment on above: Within Normal Limits. hilda, 08/22/2020 , neg with right spot compression, 09/27/21 neg, 09/27/22 neg Start: 09-08-2022 End: 09-08-2022 Cologuard Hanna Buckley [employer] Work Phone: Comment on above: Normal. negative result Start: 04-24-2021 End: 04-24-2021 Depression screening Cristina Mercado MD Work Phone: Start: 04-24-2021 End: 04-24-2021 Docrev cur meds by joon demarco MD Work Phone: Start: 04-24-2021 End: 04-24-2021 Most recent diastolic blood pressure 80-89 mm hg Cristina Mercado MD Work Phone: Start: 04-24-2021 End: 04-24-2021 Most recent systolic blood pressure <130 mm hg Cristina Mercado MD Work Phone: Start: 04-24-2021 End: 04-24-2021 Scr dep neg, no plan reqd Cristina chakraborty MD Work Phone: Start: 04-17-2021 End: 04-17-2021 Lab findings surveillance Hanna Buckley L PN Work Phone: Comment on above: Normal. 92 Start: 04-17-2021 End: 04-17-2021 Lipid panel Hanna Buckley [employer] Work Phone: Comment on above: Abnormal. tc 282H ldl 178H hdl 85 trig 8 4---on tx Start: 11-08-2020 Arthrocentesis Hedy Morales Work Phone: Start: 08-22-2020 Mammography Hedy Morales CNP Work Phone: Start: 06-23-2020 End: 06-23-2020 Microscopic examination of cervical Papanicolaou smear Hanna Buckley [employer] Work Phone: Comment on above: Normal. 04/26/2016: Dr Gonzalez- wnl, no HPV done, 06/23/20 neg Start: 06-21-2020 Microscopic observation [Identifier] in Cervix by Cyto stain Hedy Morales CNP Work Phone: Start: 12-30-2019 End: 12-30-2019 stress echo Hanna Buckley [employer] Work Phone: Comment on above: Within Normal Limits. Start: 10-30-2019 End: 10-30-2019 All Questionnaires Negative Hanna Buckley [employer] Work Phone: Start: 10-30-2019 End: 10-30-2019 Depression screening Cristina Mercado MD Work Phone: Start: 10-30-2019 End: 10-30-2019 Scr dep neg, no plan reqd Cristina chakraborty MD Work Phone: Start: 08-29-2018 End: 08-29-2018 Screening for malignant neoplasm of large intestine Hanna Buckley [employer] Work Phone: Comment on above: 08/29/18 cologuard neg Start: 08-25-2018 End: 08-25-2018 Cologuard Hanna Buckley [employer] Work Phone: Comment on above: Normal. negative result Start: 08-01-2018 End: 08-01-2018 Body mass index documented Cristina hodges MD Work Phone: Start: 08-01-2018 End: 08-01-2018 BP scrn perf rec interval Cristina chakraborty MD Work Phone: Start: 08-01-2018 End: 08-01-2018 Current tobacco non-user cad cap copd pv dm Cristina Mercado MD Work Phone: Start: 08-01-2018 End: 08-01-2018 Docrev cur meds by joon demarco MD Work Phone: Start: 08-01-2018 End: 08-01-2018 Flu immunize order/admin Cristina mckenna MD Work Phone: Start: 08-01-2018 End: 08-01-2018 Most recent diastolic blood pressure < 80 mm hg Cristina Mercado MD Work Phone: Start: 08-01-2018 End: 08-01-2018 Most recent systolic blood pressure <130 mm hg Cristina Mercado MD Work Phone: Start: 08-01-2018 End: 09-04-2018 Pt not currently on statin Cristina hodges MD Work Phone: Start: 07-21-2018 End: 03-24-2024 Screening mammography bi 2-view breast inc cad Cristina Mercado MD Work Phone: Start: 03-21-2018 End: 03-21-2018 Measurement of respiratory function Hanna Buckley LPN Work Phone: Comment on above: 03/21/18 pft's normal Start: 03-14-2018 End: 03-21-2018 Brncdilat rspse spmtry pre&post-brncdilat admn Cristina Mercado MD Work Phone: Start: 08-26-2017 End: 08-26-2017 Ophthalmic examination and evaluation Hanna Buckley [employer] Work Phone: Comment on above: Normal. Dr Brady, early cataract Start: 06-04-2016 End: 06-04-2016 Colonoscopy Hanna Buckley [employer] Work Phone: Comment on above: Normal. 06/04/16 neg Start: 06-04-2016 End: 06-04-2016 Esophagogastroduodenoscopy aHnna Buckley [employer] Work Phone: Comment on above: Normal. egd neg 06/04/16 Start: 06-04-2016 End: 06-04-2016 [facility] Work Phone: Comment on above: Normal. 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 Start: 08-26-2009 End: 08-26-2009 ORIF ankle Hanna Buckley LPN Work Phone: Comment on above: [facility] Start: 08-26-1988 End: 08-26-1988 Ligation of fallopian tube Hanna Buckley LPN Work Phone: H/O: tubal ligation H/O tubal ligation Marsha Rosenbaum LPN H/O: tubal ligation H/O tubal ligation Marsha Rosenbaum LPN H/O: tubal ligation H/O tubal ligation Hanna Buckley LPN Work Phone: H/O: tubal ligation H/O tubal ligation Cristina Mercado MD Work Phone: Skin Cancer screening Hanna Buckley LPN Work Phone: Comment on above: annually at derm Skin Cancer screening Noam Reyna LPN Comment on above: annually at derm Plan of Treatment Date Care Activity Detail Author Start: 2035 RSV Vaccine (1 - 1-d ose 75+ series) RSV Vaccine (1 - 1-dose 75+ series) [facility] Start: 08-01-2028 Tetanus vaccination Tetanus: Every 1 0yrs [facility] Start: 08-01-2028 Urine microalbumin profile DTaP,Tdap,Td Vaccine (3 - Td or Tdap) [facility] Start: 03-28-2026 End: 03-28-2026 Patient encounter procedure 03/28/2026 2:30 PM EDT Office Visit [facility] [address] [place] [address] Diomedes Brady, OD [address] [place] [address] exam/VSP 25 c/l evl $46.75 = 71.75 Optometry Comment on above: exam/VSP 25 c/l evl $46.75 = 71.75 Start: 09-06-2025 Screening for malign ant neoplasm of colon [facility] Start: 07-26-2025 Lipid panel LIPID PANEL (8 0061) Start: 26-Jul-2025 10:31-05:00 Request [employer].; [employer]. Start: 04-26-2025 Influenza vaccination Influenza Vacc ine (#1) [facility] Start: 03-22-2025 End: 03-22-2025 Patient encounter procedure 03/22/2025 2:30 PM EDT Office Visit [facility] [address] [place] [address] Diomedes Brady, OD [address] [place] [address] exam/VSP 25 Optometry Comment on above: exam/VSP 25 Start: 02-24-2025 Patient encounter procedure Medical; PHYSICAL - [facility] Start: 24-Feb-2025 09:40-04:00 MD Jess Jaun Appointment Request [facility]. Start: 12-18-2024 Comprehensive metabo lic panel CMP w/ GFR* (69406) Start: 18-Dec-2024 10:36-04:00 Request [employer].; [employer]. Start: 12-18-2024 Lipid panel LIPID PANEL (8 0061) Start: 18-Dec-2024 10:36-04:00 Request [employer].; [employer]. Start: 10-13-2024 End: 10-13-2024 Patient encounter procedure 10/13/2024 8:00 AM EST Office Visit [facility] [address] [place] [address] Diomedes Brady, OD [address] [place] [address] 2 week follow up/MMO $25 Optometry Comment on above: 2 week follow up/MMO $25 Start: 08-14-2024 Nursing evaluation o f patient and report Medical; Nurse visit - [facility] Start: 14-Aug-2024 08:20-05:00 NURSE, FLOAT Appointment Request [facility] Start: 06-15-2024 Diabetes Screening Diabetes Screenin g [facility] Start: 04-26-2024 Covid-19 Vaccine () Covid-19 Vaccine () [facility] Start: 04-26-2024 Influenza vaccination Influenza Vacc ine (#1) [facility] Start: 03-17-2024 End: 03-17-2024 Patient encounter procedure 03/17/2024 2:30 PM EDT Office Visit [facility] [address] [place] [address] Diomedes Brady, OD [address] [place] [address] c/l check [facility] Comment on above: c/l check VSP Start: 02-24-2024 Patient encounter procedure Medical; PHYSICAL - awv [facility] Start: 24-Feb-2024 09:40-04:00 MD Cristina Mercado Appointment Request [facility] Start: 02-18-2024 Lipid panel LIPID PANEL (8 0061) Start: 18-Feb-2024 Request [facility]; [employer]. Start: 02-18-2024 Nursing evaluation o f patient and report Medical; Nurse visit - [facility] Start: 18-Feb-2024 09:20-04:00 NURSE, FLOAT Appointment Request [facility] Start: 02-18-2024 Blood count complete auto&auto difrntl wbc CBC, PLATELETS & AUT DIFF (F) (79201) Start: 18-Feb-2024 07:52-04:00 Request [facility]; [employer]. Start: 02-18-2024 Comprehensive metabo lic panel CMP w/ GFR* (38120) Start: 18-Feb-2024 07:52-04:00 Request [facility]; [employer]. Start: 01-31-2024 Blood count complete auto&auto difrntl wbc CBC, PLATELETS & AUT DIFF (F) ([id number]) Start: 31-Jan-2024 Request [employer].; [employer]. Start: 01-31-2024 Comprehensive metabo lic panel CMP w/ GFR* ([id number]) Start: 31-Jan-2024 Request [facility]; [employer]. Start: 01-31-2024 Lipid panel LIPID PANEL (8 0061) Start: 31-Jan-2024 Request [facility]; [employer]. Start: 08-26-2023 Behavioral Health Screening Behavioral Health Screening [facility] Start: 06-21-2023 Screening for malign ant neoplasm of cervix Pap Smear [facility] Start: 04-26-2023 Covid-19 Vaccine ( season) Covid-19 Vaccine () [facility] Start: 04-26-2022 Influenza vaccination INFLUENZA (Sea son Ended) [facility] Start: 04-24-2022 History and physical examination, annual for health maintenance Wellness Visit [facility] Start: 08-22-2021 Screening for malign ant neoplasm of breast Mammogram [facility] Start: 08-17-2021 End: 08-17-2021 Follow-up encounter 08/17/2021 Follow-Up Sports Medicine Jay Squires [place] [address] [facility] Start: 07-19-2021 End: 07-19-2021 Follow-up encounter 07/19/2021 Follow-Up [place] [address] [facility] Start: 07-03-2021 End: 07-03-2021 Admission to same day surgery center 07/03/2021 Surgery Jay Squires MD [address] [place] [address] Right Total Knee Replacement Robotic [facility] Comment on above: Right Total Knee Rep lacement Robotic Start: 07-03-2021 End: 07-03-2021 ARTHROPLASTY KNEE TOTAL ROBOTIC ARTHROPLASTY KNEE TOTAL ROBOTIC Chondromalacia of patellofemoral joint, right 07/03/2021 9:25 AM [facility] Main OR Start: 07-03-2021 End: 07-03-2021 Admission to same day surgery center 07/03/2021 Surgery Jay Squires MD [address] [place] [address] Right Total Knee Replacement [facility] Comment on above: Right Total Knee Rep lacement Robotic Start: 07-03-2021 End: 07-03-2021 ARTHROPLASTY KNEE TOTAL ROBOTIC ARTHROPLASTY KNEE TOTAL ROBOTIC Chondromalacia of patellofemoral joint, right 07/03/2021 7:05 AM [facility] Main OR Start: 07-03-2021 Subsequent hospital visit by physician [facility] Start: 06-23-2021 End: 06-23-2021 Patient encounter procedure 06/23/2021 Surgical Consult Sports Medicine Jay Squires MD [address] [place] [id number] [facility] Start: 06-21-2021 History and physical examination, annual for health maintenance Wellness Visit [facility] Start: 04-26-2021 Influenza vaccination [facility] Start: 12-27-2020 COVID-19 Vaccine (2 - Booster for Wolf series) COVID-19 Vaccine (2 - Booster for Wolf series) [facility] Start: 11-29-2020 COVID-19 Vaccine (COVID-19 vaccine, vector-nr, rS-Ad26, PF, 0.5 mL) COVID-19 Vaccine (COVID-19 vaccine, vector-nr, rS-Ad26, PF, 0.5 mL) [facility] Start: 11-07-2020 End: 11-07-2020 Office Visit 11/07/2020 Office Visit Sports Medicine MoralesHedy lopez, [employer] [address] [place] [address] [phone] [facility] Start: 2020 RSV Vaccine (1 - 1-d ose 60+ series) RSV Vaccine (1 - 1-dose 60+ series) [facility] Start: 04-26-2020 Influenza vaccinatio n given Sequential Influenza Vaccine (#1) [facility] Start: 10-30-2019 End: 11-19-2019 Myocardial spect multiple studies Exercise Cardiolite Stress Test Date: 30-Oct-2019 [facility] Start: 07-21-2019 Screening for malign ant neoplasm of breast Mammogram Screening [facility] Start: 08-02-2018 Urine microalbumin profile DTaP,Tdap,Td Vaccine (1 - Tdap) [facility] Start: 07-21-2018 Screening mammograph y bi 2-view breast inc cad Mammogram Bilateral Screening (02004) Start: 21-Jul-2018 Intent [facility]. Start: 2010 Administration of he rpes zoster vaccine Zoster Vaccines (1 of 2) [facility] Start: 2010 Pneumococcal Vaccine : 50+ (1 of 1 - PCV) Pneumococcal Vaccine: 50+ (1 of 1 - PCV) [facility] Start: 2010 Screening for malign ant neoplasm of colon [facility] Start: 2010 SHINGRIX VACCINE (1 of 2) SHINGRIX VACCINE (1 of 2) [facility] Start: 2005 COLOGUARD (FIT-DNA) COLOGUARD (FIT-D NA) [facility] Start: 2005 Colonoscopy COLONOSCOPY [facility] Start: 2005 COLORECTAL CANCER SCREENING COLORECTAL CANCER SCREENING [facility] Start: [address] COLONOGRAPHY [facility] Start: 2005 DIABETES SCREEN DIABETES SCREEN [facility] Start: 2005 FECAL OCCULT BLOOD FECAL OCCULT BLOO D [facility] Start: 2005 Lipid panel Lipid Screening [facility] Start: 2005 LIPID SCREEN LIPID SCREEN [facility] Start: 2005 Screening for malign ant neoplasm of colon [facility] Start: 2005 SIGMOIDOSCOPY SIGMOIDOSCOPY [facility] Start: 2000 Mammography MAMMOGRAM [facility] Start: 2000 Screening for malign ant neoplasm of breast Mammogram Screening [facility] Start: 1990 HPV TESTING HPV TESTING [facility] Start: 1981 PAP TESTING PAP TESTING [facility] Start: 1981 Screening for malign ant neoplasm of cervix Cervical Cancer Screening [facility] Start: 1979 Urine microalbumin profile DTAP,TDAP,TD (1 - Tdap) [facility] Start: 1978 Anxiety Screening Anxiety Screening [facility] Start: 1978 Depression Screening Depression Scre ening [facility] Start: 1978 Hepatitis C antibody , confirmatory test Hepatitis C Screening [facility] Start: 1978 Hepatitis C screening Hepatitis C [facility] Start: 1978 HEPATITIS C SCREENING HEPATITIS C [facility] Start: 1978 HIV SCREENING HIV SCREENING [facility] Start: 1978 HIV screening HIV Screening [facility] Start: 1975 HIV screening HIV Screening [facility] Start: 1972 Adolescent depressio n screening assessment [facility] Start: 1972 Depression screening using PHQ-9 (Patient Health Questionnaire 9) score [facility] Start: 1963 History and physical examination, annual for health maintenance Wellness Visit [facility] Start: 1960 Screening for malign ant neoplasm of cervix Pap Smear [facility] Start: 1960 Screening mammography Mammogram O [facility] End: 04-11-2022 12 lead ECG ECG 12 Lead ECG Routine Chondromalacia of patellofemoral joint, right 1 Occurrences starting 04/13/2021 until 04/11/2022 [facility] Comment on above: 1 Occurrences starti ng 04/13/2021 until 04/11/2022 ARTHROPLASTY KNEE TO АЛЕКСАНДР ROBOTIC ARTHROPLASTY KNEE TOTAL ROBOTIC Chondromalacia of patellofemoral joint, right [facility] Main OR End: 04-11-2022 Basic metabolic 2000 panel - Serum or Plasma Basic metabolic panel Lab Routine Chondromalacia of patellofemoral joint, right 1 Occurrences starting 04/13/2021 until 04/11/2022 [facility] Comment on above: 1 Occurrences starti ng 04/13/2021 until 04/11/2022 End: 04-11-2022 Complete blood count with white cell differential, manual CBC and differential Lab Routine Chondromalacia of patellofemoral joint, right Hypertension, unspecified type 1 Occurrences starting 04/13/2021 until 04/11/2022 [facility] Comment on above: 1 Occurrences starti ng 04/13/2021 until 04/11/2022 End: 04-11-2022 CT Knee Right Without Contrast CT Knee Right Without Contrast Imaging Routine Chondromalacia of patellofemoral joint, right 1 Occurrences starting 04/13/2021 until 04/11/2022 [facility] Comment on above: 1 Occurrences starti ng 04/13/2021 until 04/11/2022 End: 04-11-2022 Incentive spirometry - Initial Instruction Incentive spirometry - Initial Instruction Respiratory Care Routine Chondromalacia of patellofemoral joint, right 1 Occurrences starting 04/13/2021 until 04/11/2022 [facility] Work Phone: Comment on above: 1 Occurrences starti ng 04/13/2021 until 04/11/2022 End: 11-04-2020 Magnetic resonance imaging MR Comparison Import Imaging Routine Once for 1 Occurrences starting 11/04/2020 until 11/04/2020 [facility] Comment on above: Once for 1 Occurrenc es starting 11/04/2020 until 11/04/2020 Magnetic resonance imaging MR Comparison Import Imaging Routine 11/04/2020 3:37 PM EST [facility] End: 04-11-2022 Methicillin resistant Staphylococcus aureus [Presence] in Unspecified specimen by Organism specific culture MRSA Culture Microbiology Routine Chondromalacia of patellofemoral joint, right 1 Occurrences starting 04/13/2021 until 04/11/2022 [facility] Comment on above: 1 Occurrences starti ng 04/13/2021 until 04/11/2022 End: 03-15-2022 MR Knee Right Without Contrast MR Knee Right Without Contrast Imaging Routine Chondromalacia of patellofemoral joint, right 1 Occurrences starting 03/15/2021 until 03/15/2022 [facility] Comment on above: 1 Occurrences starti ng 03/15/2021 until 03/15/2022 [facility] c Immunizations Immunization Date Immunization Notes Care Provider Kalyani salgado 11-01-2020 [employer] (AD26 .5 ML) Cristina Mercado MD Work Phone: [facility]; [facility] 08-01-2018 tetanus and diphther ia toxoids, adsorbed, preservative free, for adult use (2 Lf of tetanus toxoid and 2 Lf of diphtheria toxoid) Cristina Mercado MD Work Phone: [facility] [employer]; [employer]. Comment on above: Site: Left Deltoid 08-01-2018 TD(adult) unspecifie d formulation Cristina Mercado MD Work Phone: [facility] [employer]; [facility] 06-24-2018 influenza, injectabl e, quadrivalent, contains preservative Cristina Mercado MD Work Phone: [facility] [employer]; [facility]. Comment on above: at work 06-24-2018 influenza virus vaccine, unspecified formulation Cristina Mercado MD Work Phone: [facility]; [facility]. Comment on above: at work 03-17-2018 Shingrix 50 MCG/0.5M L Intramuscular Suspension Reconstituted Cristina Mercado MD Work Phone: [facility]; [facility] 11-29-2006 tetanus toxoid, redu vikram diphtheria toxoid, and acellular pertussis vaccine, adsorbed Cristina Mercado MD Work Phone: [place] [facility]; [facility] Payers Date Payer Category Payer Self-pay [id number] 2024 Self-pay 2019 Unknown [id number] 2019 Unknown [id number] 2013 Private Health Insurance [id number] 2013 Unknown [id number]. 1.13.385.2. [id number] 2013 Unknown VISION SERVICE P YAMEL VSP VISION [id number] 2013-Present [address] [address] [place] [address] Indemnity [id number] [id number]. [id number] 2013 Unknown [id number] 1960 Unknown [id number] 2.16.840.1.159439.3.579.2. 900 1960 Unknown [id number] 2.16.840.1.451269.3.579.2. 900 1960 Unknown [id number] 2.16.840.1.505832.3.579.2. 903 1960 Unknown [id number] 2.16.840.1.702416.3.579.2. 903 1960 Unknown [id number] 2.16.840.1.101769.3.579.2. 903 1960 Unknown [id number] 2.16.840.1.831819.3.579.2. 903 1960 Unknown [id number] 2.16.840.1.737500.3.579.2. 903 1960 Unknown [id number] 2.16.840.1.416135.3.579.2. 903 1960 Unknown [id number] 2.16.840.1.989030.3.579.2. 903 1960 Unknown [id number] 2.16.840.1.094501.3.579.2. 903 1960 Unknown [id number] 2.16.840.1.749968.3.579.2. 903 1960 Unknown [id number] 2.16.840.1.151686.3.579.2. 903 1960 Unknown [id number] 2.16.840.1.677237.3.579.2. 903 1960 Unknown [id number] 2.16.840.1.757974.3.579.2. 903 1960 Unknown [id number] 2.16.840.1.014213.3.579.2. 903 1960 Unknown [id number] 2.16.840.1.144235.3.579.2. 903 1960 Unknown [id number] 2.16.840.1.345827.3.579.2. 1069 1960 Unknown [id number] 2.16840.1.232535.3.579.2. 1069 1960 Unknown [id number] 2.16840.1.082837.3.579.2. 651 1960 Unknown [id number] 2.16840.1.596989.3.579.2. 651 1960 Unknown [id number] 2.16.840.1.313666.3.579.2. 651 1960 Unknown [id number] 2.16840.1.425213.3.579.2. 651 1960 Unknown [id number] 2.16840.1.156032.3.579.2. 651 Unknown [id number] 2.16.840.1.903708.3.579.2. 462 Unknown [id number] 2.16840.1.479678.3.579.2. 462 Unknown [id number] 2.16.840.1.828960.3.579.2. 462 Social History Date Type Detail Facility Tobacco smoking status MEIS Unknown if ever smoked [facility] Start: 1960 Sex Assigned At Not on file [facility] Start: 12-12-2015 End: 11-08-2020 Tobacco smoking status NHIS Never smoker [facility] Start: 12-12-2015 End: 11-08-2020 Tobacco use and exposure Never used [facility] Start: 11-10-2021 End: 12-04-2021 Exposure to SARS-CoV-2 (event) Not sure [facility] Start: 06-25-2021 End: 03-22-2025 Alcohol intake Current drink[facility] of [facility] ([facility]) [facility] Start: 06-25-2021 End: 10-13-2024 Alcohol intake [facility] Start: 06-15-2021 History SDOH Alcohol Comment weekly [facility] Start: 11-18-2017 History SDOH Alcohol Comment wine occassionally [facility] Tobacco smoking consumption unknown [facility] Marital status: Mar[facility] status: ; . [facility] Tobacco Use: Tobacco Use: ; N ever smoker. [employer]; [employer]. Start: 1960 Female [facility] Melendezgoviral; Melendezgoviral Work Phone: Start: 01-11-2020 End: 10-13-2024 Tobacco use panel [facility] National Score (1-100), lower number is lower risk 72 [facility] Start: 06-28-2020 Tobacco Use Tobacco Use [facility] Medical Equipment Procedure Code Equipment Code Equipment Origin al Text Equipment Identifier Dates Patella 32mm Asymmetric Metal-Backed Tritanium Triathlon - [id number] [facility] Start: 07-03-2021 Clinical Notes 03-15-2021 to 03-22-2025 Patient InstructionsDiomedes Brady OD - 03/22/2025 3:22 PM EDTPatient InstructionsDiomedes Brady OD - 10/13/2024 8:14 AM ESTPatient InstructionsPatient InstructionsPatient Instructions Note Date & Type Note Facility 03-22-2025 Instructions Diomedes Brady OD - 03/22/2025 3:26 PM EDT ASSESSMENT/PLAN: 1. Myopia of both eyes - ICD9: 367.1, ICD10: H52.13 (primary diagnosis) 2. 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 Presbyopia - ICD9: 367.4, ICD10: H52.4 Continue to wear her glasses as desired. Dispensed updated trials to compare. Let us know if she prefers any of the jones, if she needs to be seen again, she can schedule. Recommended yearly exams. documented in this encounter [facility] 03-22-2025 Note HNO ID: [id number] Author: DIOMEDES BRADY OD Service: ? Author Type: CASINO PORTER Type: Progress Notes Filed: 03/22/2025 15:27 Note Text: ASSESSMENT/PLAN: 1. Myopia of both eyes - ICD9: 367.1, ICD10: H52.13 (primary diagnosis) 2. 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 Presbyopia - ICD9: 367.4, ICD10: H52.4 Continue to wear her glasses as desired. Dispensed updated trials to compare. Let us know if she prefers any of the jones, if she needs to be seen again, she can schedule. Recommended yearly exams. Diomedes Brady, MAHAMED I have confirmed and edited as necessary the relevant ophthalmic history, ROS, and the neuro exam findings as obtained by others. [facility] 03-22-2025 History of Present illness Narrative ASSESSMENT/PLAN: 1. Myopia of both eyes - ICD9: 367.1, ICD10: H52.13 (primary diagnosis) 2. 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 Presbyopia - ICD9: 367.4, ICD10: H52.4 Continue to wear her glasses as desired. Dispensed updated trials to compare. Let us know if she prefers any of the jones, if she needs to be seen again, she can schedule. Recommended yearly exams. Diomedes Brady, OD I have confirmed and edited as necessary the relevant ophthalmic history, ROS, and the neuro exam findings as obtained by others. documented in this encounter [facility] 02-03-2025 Radiology Diagnostic study note [facility] Imaging Services [address] [place] [address] Pelvic w/ Transvaginal MR#: [id number] Acct: [id number] Name: BETTYE GOTTI Rep #: [id number] : 1960 F 64 From: Nirmal Ramírez MD PCP: Dr. Cristina Mercado MD Status: R EG CLI Study:Pelvic w/ Transvaginal Date of Exam: 02/01/25 Exam# [id number] Ordering Dr: Kamilla Calvo PIPING MANAGER PIPING MANAGER-C PROCEDURE: PELVIC W/ TRANSVAGINAL REASON FOR EXAM: OVARIAN CYST, ENDOMETRIUM TECHNIQUE: Transabdominal and transvaginal pelvic ultrasound COMPARISON: Prior study dated July 28, 2024. FINDINGS: Measurements: Uterus: 10.1 cm x 5.1 cm x 3 cm with a volume of 80.5 mL Endometrial Thickness: 7.8 mm. This is thickened for postmenopausal state. Multiple cystic structures are seen within the endometrium. Right Ovary: 1.7 cm x 1.4 cm x 1.3 cm with a volume of 1.54 mL. Left Ovary: 1.8 cm x 1 cm x 1.3 cm with a volume of 1.13 mL. TRANSABDOMINAL: Uterus: There is a 2.6 cm 2.6 cm 2.5 cm fundal fibroid. Endometrium: The endometrium is thickened. It is hyperechoic. Multiple cystic changes are seen within it. The largest measures 8 mm x 4 mm x 4 mm. Right ovary: Normal size and echotexture. Left ovary: Small left ovarian follicle. Other: No large pelvic mass identified. Transvaginal sonography was performed to better visualize the endometrium. TRANSVAGINAL: Uterus: Anteverted. Fundal fibroid. Endometrium: Endometrial thickening with multiple small cystic structures withinit. Right ovary: Normal size and echotexture. Left ovary: Small left ovarian follicle. Other adnexal findings: None. Cul-de-sac: No free intraperitoneal fluid identified. Tenderness: No tenderness US/Pelvic w/ Transvaginal IMPRESSION: Endometrial thickening with cystic structures within the endometrium. Small left ovarian follicle. Reading Location: [facility] CC: BARB Calvo; Dr. Cristina Mercado MD ~ Front End Specialist: Signed [facility] 10-13-2024 Instructions Diomedes Brady OD - 10/13/2024 8:17 AM EST ASSESSMENT/PLAN: 1. 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 Recommended the use of preservative free tears four times a day and return if the eyes flare up. Suggested Refresh Doroteo 3's or Systane Complete PF Keep the original recall documented in this encounter [facility] 10-13-2024 Note HNO ID: [id number] Author: DIOMEDES BRADY OD Service: ? Author Type: CASINO PORTER Type: Progress Notes Filed: 10/13/2024 08:20 Note Text: ASSESSMENT/PLAN: 1. 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 Recommended the use of preservative free tears four times a day and return if the eyes flare up. Suggested Refresh Doroteo 3's or Systane Complete PF Keep the original recall Diomedes Brady OD I have confirmed and edited as necessary the relevant ophthalmic history, ROS, and the neuro exam findings as obtained by others. [facility] 10-13-2024 History of Present illness Narrative ASSESSMENT/PLAN: 1. 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 Recommended the use of preservative free tears four times a day and return if the eyes flare up. Suggested Refresh Doroteo 3's or Systane Complete PF Keep the original recall Diomedes Brady OD I have confirmed and edited as necessary the relevant ophthalmic history, ROS, and the neuro exam findings as obtained by others. documented in this encounter [facility] 09-28-2024 Instructions Diomedes Brady OD - 09/28/2024 2:19 PM EST ASSESSMENT/PLAN: 1. 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 2. Pinguecula, bilateral - ICD9: 372.51, ICD10: H11.153 Suggested artificial tears twice a day Return in 2 weeks. documented in this encounter [facility] 09-28-2024 Note HNO ID: [id number] Author: DIOMEDES BRADY OD Service: ? Author Type: CASINO PORTER Type: Progress Notes Filed: 09/28/2024 14:20 Note Text: ASSESSMENT/PLAN: 1. 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 2. Pinguecula, bilateral - ICD9: 372.51, ICD10: H11.153 Suggested artificial tears twice a day Return in 2 weeks. Diomedes Brady OD I have confirmed and edited as necessary the relevant ophthalmic history, ROS, and the neuro exam findings as obtained by others. [facility] 09-28-2024 History of Present illness Narrative ASSESSMENT/PLAN: 1. 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 2. Pinguecula, bilateral - ICD9: 372.51, ICD10: H11.153 Suggested artificial tears twice a day Return in 2 weeks. Diomedes Brady OD I have confirmed and edited as necessary the relevant ophthalmic history, ROS, and the neuro exam findings as obtained by others. documented in this encounter [facility] 03-16-2024 Instructions Diomedes Brady OD - 03/16/2024 3:34 PM EDT ASSESSMENT/PLAN: 1. Myopia of both eyes - ICD9: 367.1, ICD10: H52.13 (primary diagnosis) 2. Presbyopia - ICD9: 367.4, ICD10: H52.4 Ok to order the lenses to be worn on a daily basis and replaced with each use. Recommended yearly exams. documented in this encounter [facility] 03-16-2024 History of Present illness Narrative ASSESSMENT/PLAN: 1. Myopia of both eyes - ICD9: 367.1, ICD10: H52.13 (primary diagnosis) 2. Presbyopia - ICD9: 367.4, ICD10: H52.4 Ok to order the lenses to be worn on a daily basis and replaced with each use. Recommended yearly exams. Diomedes Brady OD I have confirmed and edited as necessary the relevant ophthalmic history, ROS, and the neuro exam findings as obtained by others. documented in this encounter [facility] 03-03-2024 Instructions Diomedes Brady OD - 03/03/2024 3:04 PM EDT ASSESSMENT/PLAN: 1. Myopia of both eyes - ICD9: 367.1, ICD10: H52.13 (primary diagnosis) 2. 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 Presbyopia - ICD9: 367.4, ICD10: H52.4 Suggested glasses for a back up Dispensed updated contact lenses jones to try and can revisit the option of other jones or multifocals at her follow up CL check in 2 weeks. documented in this encounter [facility] 03-03-2024 History of Present illness Narrative ASSESSMENT/PLAN: 1. Myopia of both eyes - ICD9: 367.1, ICD10: H52.13 (primary diagnosis) 2. 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 Presbyopia - ICD9: 367.4, ICD10: H52.4 Suggested glasses for a back up Dispensed updated contact lenses jones to try and can revisit the option of other jones or multifocals at her follow up CL check in 2 weeks. Diomedes Brady, MAHAMED I have confirmed and edited as necessary the relevant ophthalmic history, ROS, and the neuro exam findings as obtained by others. documented in this encounter [facility] 12-04-2021 Instructions Diomedes Brady OD - 12/04/2021 9:28 AM EDT ASSESSMENT/PLAN: 1. Myopia of both eyes - ICD9: 367.1, ICD10: H52.13 (primary diagnosis) 2. Presbyopia - ICD9: 367.4, ICD10: H52.4 Dispensed updated jones to compare and she can order whichever she prefers. Recommended yearly exams. documented in this encounter [facility] 12-04-2021 History of Present illness Narrative ASSESSMENT/PLAN: 1. Myopia of both eyes - ICD9: 367.1, ICD10: H52.13 (primary diagnosis) 2. Presbyopia - ICD9: 367.4, ICD10: H52.4 Dispensed updated jones to compare and she can order whichever she prefers. Recommended yearly exams. Diomedes Brady OD documented in this encounter [facility] 11-20-2021 Instructions Diomedes Brady OD - 11/20/2021 11:27 AM EDT ASSESSMENT/PLAN: 1. Myopia of both eyes - ICD9: 367.1, ICD10: H52.13 (primary diagnosis) 2. Presbyopia - ICD9: 367.4, ICD10: H52.4 Continue to wear her glasses as desired. Dispensed updated jones to try and materials. Will need to check before ordering. Early cataracts not clinically significant at this time. Return in 2 weeks. documented in this encounter [facility] 11-20-2021 History of Present illness Narrative ASSESSMENT/PLAN: 1. Myopia of both eyes - ICD9: 367.1, ICD10: H52.13 (primary diagnosis) 2. Presbyopia - ICD9: 367.4, ICD10: H52.4 Continue to wear her glasses as desired. Dispensed updated jones to try and materials. Will need to check before ordering. Early cataracts not clinically significant at this time. Return in 2 weeks. Diomedes Brady OD documented in this encounter [facility] 08-17-2021 History of Present illness Narrative She comes in today 6 weeks status post right total knee replacement, doing absolutely fantastic. Wound is healed. No signs of infection. No DVT signs or symptoms. Calves soft. Full extension, 130 degrees of flexion. No ligamentous instability. No erythema. No lymphangitis. No cellulitis. X-RAYS Three views right knee show a normal-appearing right knee replacement. IMPRESSION Six weeks status post right total knee replacement. PLAN She is doing absolutely fantastic. She has 130 degrees of right knee flexion. She will do activities as tolerated. I will see her on a p.r.n. basis. documented in this encounter [facility] 06-25-2021 History of Present illness Narrative This note is in progress. Dictation on: 06/25/2021 10:03 AM by: JAY SQUIRES [[id number]] documented in this encounter [facility] 04-04-2021 History of Present illness Narrative [facility] [address] [facility] [address] [facility] [id number] Chief Complaint Patient presents with Right Knee - Follow-up Bettye Gotti returns to the office today for follow-up on her right knee and for MRI results. Bettye had a prior knee arthroscopy about a year and a half ago and unfortunately since that surgery has continued pain in the right knee. The pain is located along the inside portion of the knee. This pain has inhibited her from enjoying every day activities especially playing with her grandchildren. She has pain literally every day in the knee. Stairs are very painful for her, having to go up and down one at a time to prevent falling. She does report she is walking now constantly with a limp. Throughout the course of this past year after the arthroscopy she has tried injections of cortisone as well as gel injections, oral anti-inflammatories as well as 2 courses of physical therapy for the right knee none of which provided her with any type of significant symptom relief. She is really exhausted with the knee at this point in time. She just wants to go forward and be able to live a normal life and not have to worry about if the knee is going to be as painful or inhibit her from doing things she would like her knee to do on a daily basis. The patient's past medical history, surgical history, social history, family history, medications and allergies were reviewed with the patient today and are available in the chart for further review. No Known Allergies Current Outpatient Medications: co-enzyme Q-10 30 mg capsule, Take 30 mg by mouth 3 (three) times a day ., Disp: , Rfl: ezetimibe-simvastatin (VYTORIN) 10-10 mg per tablet, Take 1 tablet by mouth nightly ., Disp: , Rfl: magnesium citrate solution, Take 296 mL by mouth once ., Disp: , Rfl: meloxicam (MOBIC) 15 MG tablet, Take 15 mg by mouth daily ., Disp: , Rfl: microfibrillar collagen powder, Apply 1 g topically as needed ., Disp: , Rfl: Past Medical History: Diagnosis Date High cholesterol Past Surgical History: Procedure Laterality Date ANKLE FRACTURE SURGERY Social History Socioeconomic History Marital status: Spouse name: Not on file Number of children: Not on file Years of education: Not on file Highest education level: Not on file Occupational History Not on file Tobacco Use Smoking status: Never Smoker Smokeless tobacco: Never Used Vaping Use Vaping Use: Never used Substance and Sexual Activity Alcohol use: Not on file Drug use: Not on file Sexual activity: Not on file Other Topics Concern Not on file Social History Narrative Not on file Social Determinants of Health Financial Resource Strain: Difficulty of Paying Living Expenses: Food Insecurity: Worried About Running Out of Food in the Last Year: Ran Out of Food in the Last Year: Transportation Needs: Lack of Transportation (Medical): Lack of Transportation (Non-Medical): Physical Activity: Days of Exercise per Week: Minutes of Exercise per Session: Stress: Feeling of Stress : Social Connections: Frequency of Communication with Friends and Family: Frequency of Social Gatherings with Friends and Family: Attends Sabianism Services: Active Member of Clubs or Organizations: Attends Club or Organization Meetings: Marital Status: ORTHO: Right Knee Exam Tenderness The patient is experiencing tenderness in the lateral joint line, medial joint line, patellar tendon and patella. Range of Motion Extension: 0 Flexion: 120 (Wtih pain, passive and active) Tests Ashtyn: Medial - positive Lateral - positive Varus: negative Valgus: negative Ambrose: Anterior - negative Drawer: Anterior - negative Posterior - negative Other Erythema: absent Scars: absent Sensation: normal Pulse: present Swelling: mild Effusion: effusion present Imaging: MRI right knee 1. Suspect prior partial meniscectomy of the medial meniscus versus free edge radial tear. No definite displaced meniscal fragment. 2. Tricompartmental chondrosis, most significant the patellofemoral compartment, slightly progressed from prior MRI. 3. Joint effusion. Assessment/Plan: After discussion and reviewing the MRI images we talked about treatment options. I did personally review this MRI with Dr. Squires and it was his recommendation that a total knee replacement would be the most benefit for this patient. 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 Given that she is exhausted all conservative treatment measures without any relief she is ready to move forward with a right total knee replacement with Dr. Squires. I did explain the office will contact her to schedule the surgery. I am more than happy to see her back if needed prior to her surgery. She does verbalize understanding is in agreement with this treatment plan. I personally spent 35 minutes with this patient [id number], reviewing MRI images, explaining diagnoses, discussing treatment options and educating on a right total knee arthroplasty. documented in this encounter [facility] 03-15-2021 History of Present illness Narrative [facility] [address] [facility] [address] [facility] [id number] No chief complaint on file. Bettye Gotti returns to the office today for follow-up on her right knee. She received an injection in October to the right knee which did not really provide her with any type of adequate symptom relief. I then started her in outpatient physical therapy. She is completed the course of outpatient physical therapy and unfortunately still has not obtained any type of symptom relief. She continues to report pain in the right knee with intermittent swelling. She is having difficulty with ambulation and periods of time due to the pain. She continues with OTC pain medication and RICE therapy The patient's past medical history, surgical history, social history, family history, medications and allergies were reviewed with the patient today and are available in the chart for further review. No Known Allergies Current Outpatient Medications: co-enzyme Q-10 30 mg capsule, Take 30 mg by mouth 3 (three) times a day ., Disp: , Rfl: ezetimibe-simvastatin (VYTORIN) 10-10 mg per tablet, Take 1 tablet by mouth nightly ., Disp: , Rfl: magnesium citrate solution, Take 296 mL by mouth once ., Disp: , Rfl: meloxicam (MOBIC) 15 MG tablet, Take 15 mg by mouth daily ., Disp: , Rfl: microfibrillar collagen powder, Apply 1 g topically as needed ., Disp: , Rfl: Past Medical History: Diagnosis Date High cholesterol Past Surgical History: Procedure Laterality Date ANKLE FRACTURE SURGERY Social History Socioeconomic History Marital status: Spouse name: Not on file Number of children: Not on file Years of education: Not on file Highest education level: Not on file Occupational History Not on file Tobacco Use Smoking status: Never Smoker Smokeless tobacco: Never Used Vaping Use Vaping Use: Never used Substance and Sexual Activity Alcohol use: Not on file Drug use: Not on file Sexual activity: Not on file Other Topics Concern Not on file Social History Narrative Not on file Social Determinants of Health Financial Resource Strain: Difficulty of Paying Living Expenses: Food Insecurity: Worried About Running Out of Food in the Last Year: Ran Out of Food in the Last Year: Transportation Needs: Lack of Transportation (Medical): Lack of Transportation (Non-Medical): Physical Activity: Days of Exercise per Week: Minutes of Exercise per Session: Stress: Feeling of Stress : Social Connections: Frequency of Communication with Friends and Family: Frequency of Social Gatherings with Friends and Family: Attends Sabianism Services: Active Member of Clubs or Organizations: Attends Club or Organization Meetings: Marital Status: Assessment/Plan: At this point in time Bettye has exhausted conservative treatment measures. She has tried oral medications, injections and physical therapy to alleviate her right knee pain all of which have failed. And then order an MRI of the right knee for further diagnostic evaluation. I will see her back in the office for follow-up and to review MRI results. She verbalized understanding agreement with plan. I spent 20 minutes, face to face with the patient discussing diagnosis, testing and treatment options. documented in this encounter [facility] Evaluation note Diagnosis Chondromalacia of patellofemoral joint, right- Primary [facility] Chondromalacia of patellofemoral joint, right- Primary [facility] Diagnosis Chondromalacia of patellofemoral joint, right- Primary Hypertension, unspecified type Chondromalacia of patellofemoral joint, right- Primary [facility] Diagnosis Chondromalacia of patellofemoral joint, right- Primary Chondromalacia of patellofemoral joint, right- Primary Arthritis of right knee Chondromalacia of patellofemoral joint, right [facility] Diagnosis Chondromalacia of patellofemoral joint, right- Primary Hypertension, unspecified type Chondromalacia of patellofemoral joint, right- Primary Chondromalacia of patellofemoral joint, right Chondromalacia of patellofemoral joint, right [facility] S/P total knee replacement not using cement, right- Primary [facility]* Diagnosis Status post total right knee replacement- Primary [facility] Diagnosis Status post total right knee replacement- Primary [facility] Diagnosis Myopia of both eyes- Primary Myopia Presbyopia [facility] Diagnosis Myopia of both eyes- Primary Myopia Presbyopia [facility] Diagnosis Myopia of both eyes- Primary Myopia Regular astigmatism of left eye Regular astigmatism Presbyopia [facility] Diagnosis Myopia of both eyes- Primary Myopia Presbyopia [facility] Diagnosis Episcleritis of both eyes- Primary Scleritis, unspecified Pinguecula, bilateral [facility] Diagnosis Episcleritis of both eyes- Primary Scleritis, unspecified Pinguecula, bilateral documented in this encounter [facility] noteNo assessment information availableWMartins Ferry Hospital Work Phone: Evaluation note* Diagnosis Myopia of both eyes- Primary Myopia Regular astigmatism of both eyes Regular astigmatism Presbyopia [facility]ative[facility]No reason for referral information availableWMartins Ferry Hospital Work Phone: Advance Directives No Advanced Directives Records FoundDocuments on File Type Date Recorded Patient Manager Surgery Expl anation Advance Directives and Livin g Will 10/28/2020 12:00 AM Documents on File Type Date Recorded Patient Manager Surgery Expl anation Advance Directives and Living Will Documents on File Type Date Recorded Patient Manager Surgery Expl anation Advance Directives and Living Will Documents on File Type Date Recorded Patient Manager Surgery Expl anation Advance Directives and Livin g Will 03/30/2021 2:52 PM Documents on File Type Date Recorded Patient Manager Surgery Expl anation Advance Directives and Livin g Will 03/30/2021 2:52 PM Documents on File Type Date Recorded Patient Manager Surgery Expl anation Advance Directives and Livin g Will 06/15/2021 1:53 PM NOT IN SORIAN Documents on File Type Date Recorded Patient Manager Surgery Expl anation Advance Directives and Livin g Will 06/15/2021 1:53 PM NOT IN SORIAN Documents on File Type Date Recorded Patient Manager Surgery Expl anation Advance Directives and Livin g Will 07/03/2021 5:33 AM NOT IN SORIAN Latest Code Status on File Code Status Date Activated Date Inactivated Comments Full Code 07/03/2021 8:46 AM 07/03/2021 8:27 PM History of Present Illness * Hedy Morales CNP - 11/08/2020 9:30 AM EDT Associated Order(s): LG Jt Injection/Arthrocentesis: R knee Post-Procedure Diagnose(s): Chondromalacia of patellofemoral joint, right LG Jt Injection/Arthrocentesis: R knee Performed by: Hedy Morales CNP Authorized by: Hedy Morales CNP CPT 93892 - Large Joint Arthrocentesis: Consent given by: Patient Time out: Immediately prior to the procedure a time out was called Physician or proceduralist has discussed critical or nonroutine steps, procedure duration and anticipated blood loss: Yes Supporting Documentation: Indications: Pain, joint swelling and diagnostic evaluation Procedure Details: Location: Knee Site: R knee Prep: patient was prepped and draped in usual sterile fashion Needle size: 22 G Approach: Anterolateral Medications: 40 mg triamcinolone acetonide 40 mg/mL Anesthetic used: Lidocaine 1% Anesthetic amount (mL): 2 Patient tolerance: Patient tolerated the procedure well with no immediate complications * Hedy Morales CNP - 11/08/2020 8:49 AM EDT Bettye Jeronimotomherson 1960 CC: 60 y.o. is a she with right knee pain. Chief Complaint Patient presents with Right Knee - Pain . HPI: Knee Pain: Patient presents to the office today with right knee pain. She was originally seen in February by another provider. She had a knee arthroscopy at the end of February/beginning of Mar., but hasn't really had pain relief. She was told that there was a part of her bone where the damages was too big and therefore microfracture surgery couldn't be performed. She isn't quite sure what was done in the knee scope.She denies any injury to the knee. She has pain all throughout the knee. She denies any instability of the knee. Stairs are difficult for her at times. She did receive an injection to the knee which didn't really provide her with much relief. She has never had physical therapy on the knee. She was also placed on Mobic but doesn't believe that it works any better than the otc medications. She denies any locking or catching of the knee. She does have popping in the knee. She is frustrated because she was told that she was too young for a knee replacement but the knee if very painful. She would like to be able to enjoy her life now and with the knee pain she just isn't able todo that. PMH: No Known Allergies Current Outpatient Medications: co-enzyme Q-10 30 mg capsule, Take 30 mg by mouth 3 (three) times a day ., Disp: , Rfl: ezetimibe-simvastatin (VYTORIN) 10-10 mg per tablet, Take 1 tablet by mouth nightly ., Disp: , Rfl: magnesium citrate solution, Take 296 mL by mouth once ., Disp: , Rfl: meloxicam (MOBIC) 15 MG tablet, Take 15 mg by mouth daily ., Disp: , Rfl: microfibrillar collagen powder, Apply 1 g topically as needed ., Disp: , Rfl: Past Medical History: Diagnosis Date High cholesterol Past Surgical History: Procedure Laterality Date ANKLE FRACTURE SURGERY Social History Socioeconomic History Marital status: Spouse name: Not on file Number of children: Not on file Years of education: Not on file Highest education level: Not on file Occupational History Not on file Social Needs Financial resource strain: Not on file Food insecurity Worry: Not on file Inability: Not on file Transportation needs Medical: Not on file Non-medical: Not on file Tobacco Use Smoking status: Never Smoker Smokeless tobacco: Never Used Substance and Sexual Activity Alcohol use: Not on file Drug use: Not on file Sexual activity: Not on file Lifestyle Physical activity Days per week: Not on file Minutes per session: Not on file Stress: Not on file Relationships Social connections Talks on phone: Not on file Gets together: Not on file Attends restorationist service: Not on file Active member of club or organization: Not on file Attends meetings of clubs or organizations: Not on file Relationship status: Not on file Other Topics Concern Not on file Social History Narrative Not on file The patient's past medical history, surgical history, social history, family history, medications and allergies were reviewed with the patient today and are available in the chart for further review. ROS: Review of Systems Constitutional: Negative for activity change and fatigue. HENT: Negative for congestion, hearing loss and trouble swallowing. Eyes: Negative for visual disturbance. Respiratory: Negative for chest tightness and shortness of breath. Cardiovascular: Negative for chest pain and palpitations. Gastrointestinal: Negative for abdominal pain, diarrhea, nausea and vomiting. Endocrine: Negative for polydipsia, polyphagia and polyuria. Genitourinary: Negative for decreased urine volume, difficulty urinating and hematuria. Musculoskeletal: Positive for arthralgias and joint swelling. Negative for myalgias. Skin: Negative for color change, rash and wound. Allergic/Immunologic: Negative for immunocompromised state. Neurological: Negative for dizziness, weakness, light-headedness and numbness. Hematological: Does not bruise/bleed easily. Psychiatric/Behavioral: Negative for confusion and sleep disturbance. The patient is not nervous/anxious. PE: Physical Exam Constitutional: She is oriented to person, place, and time. She appears well- developed and well-nourished. HENT: Head: Normocephalic. Eyes: Pupils are equal, round, and reactive to light. Neck: Normal range of motion. Neck supple. Cardiovascular: Normal rate and regular rhythm. Pulmonary/Chest: Effort normal and breath sounds normal. Abdominal: Soft. Bowel sounds are normal. Musculoskeletal: Normal range of motion. General: Tenderness and edema present. Right knee: She exhibits swelling and abnormal patellar mobility. She exhibits no effusion. Tenderness found. Medial joint line and lateral joint line tenderness noted. Neurological: She is alert and oriented to person, place, and time. Skin: Skin is warm and dry. ORTHO: Right Knee Exam Muscle Strength The patient has normal right knee strength. Tenderness The patient is experiencing tenderness in the lateral joint line, medial joint line and patella. Range of Motion The patient has normal right knee ROM. Tests Ashtyn: Medial - negative Lateral - negative Varus: negative Valgus: negative Ambrose: Anterior - negative Drawer: Anterior - negative Posterior - negative Other Erythema: absent Scars: present Sensation: normal Pulse: present Swelling: mild Effusion: no effusion present Imaging:R Knee X-rays and MRI reviewed from 03/24/2020 R Knee No acute fracture or dislocation. There are mild degenerative changes within the knee joint. MRI Knee Mild patellofemoral compartment arthrosis with focal chondromalacia and subchondral edema of the median ridge of the patella the medial trochlea Assessment/Plan: After examination and reviewing of the patient x- ray and MRI images, we discussedtreatment options. I offered her a cortisone injection which she gladly accepted. I did this without complications and she tolerated this well. I am also going to start her in physical therapy since she has never been to any formal therapy. I will see her back in 6 weeks for follow up. If there is no improvement in her symptoms, I will order a MRI for further diagnostic evaluation. The patient verbalizes understanding and is in agreement with the treatment plan. Diagnosis: Problem List Items Addressed This Visit None Visit Diagnoses Chondromalacia of patellofemoral joint, right - Primary Follow Up: No follow-ups on file. Hedy Morales CNP documented in this encounter Assessments Diagnosis Chondromalacia of patellofemoral joint, right- Primary Summary Purpose Family History No Family History Records Found Father Status:Active Comments: d. at age 50, rheumatic heart disease Mother Status:Active Comments: d. lung mets from skin cancer Skin Cancer Status:Active Comments:Mother. Father Status:Active Comments: d. at age 50, rheumatic heart disease Mother Status:Active Comments: d. lung mets from skin cancer Skin Cancer Status:Active Comments:Mother. Father Status:Active Comments: d. at age 50, rheumatic heart disease Mother Status:Active Comments: d. lung mets from skin cancer Skin Cancer Status:Active Comments:Mother. Father Status:Active Comments: d. at age 50, rheumatic heart disease Mother Status:Active Comments: d. lung mets from skin cancer Skin Cancer Status:Active Comments:Mother. Father Status:Active Comments: d. at age 50, rheumatic heart disease Mother Status:Active Comments: d. lung mets from skin cancer Skin Cancer Status:Active Comments:Mother. Father Status:Active Comments: d. at age 50, rheumatic heart disease Mother Status:Active Comments: d. lung mets from skin cancer Skin Cancer Status:Active Comments:Mother. Father Status:Active Comments: d. at age 50, rheumatic heart disease Mother Status:Active Comments: d. lung mets from skin cancer Skin Cancer Status:Active Comments:Mother. Father Status:Active Comments: d. at age 50, rheumatic heart disease Mother Status:Active Comments: d. lung mets from skin cancer Skin Cancer Status:Active Comments:Mother. Father Status:Active Comments: d. at age 50, rheumatic heart disease Mother Status:Active Comments: d. lung mets from skin cancer Skin Cancer Status:Active Comments:Mother. Father Status:Active Comments: d. at age 50, rheumatic heart disease Mother Status:Active Comments: d. lung mets from skin cancer Skin Cancer Status:Active Comments:Mother. Father Status:Active Comments: d. at age 50, rheumatic heart disease Mother Status:Active Comments: d. lung mets from skin cancer Skin Cancer Status:Active Comments:Mother. Father Status:Active Comments: d. at age 50, rheumatic heart disease Mother Status:Active Comments: d. lung mets from skin cancer Skin Cancer Status:Active Comments:Mother. Father Status:Active Comments: d. at age 50, rheumatic heart disease Mother Status:Active Comments: d. lung mets from skin cancer Skin Cancer Status:Active Comments:Mother. Father Status:Active Comments: d. at age 50, rheumatic heart disease Mother Status:Active Comments: d. lung mets from skin cancer Skin Cancer Status:Active Comments:Mother. Father Status:Active Comments: d. at age 50, rheumatic heart disease Mother Status:Active Comments: d. lung mets from skin cancer Skin Cancer Status:Active Comments:Mother. Father Status:Active Comments: d. at age 50, rheumatic heart disease Mother Status:Active Comments: d. lung mets from skin cancer Skin Cancer Status:Active Comments:Mother. Father Status:Active Comments: d. at age 50, rheumatic heart disease Mother Status:Active Comments: d. lung mets from skin cancer Skin Cancer Status:Active Comments:Mother. Father Status:Active Comments: d. at age 50, rheumatic heart disease Mother Status:Active Comments: d. lung mets from skin cancer Skin Cancer Status:Active Comments:Mother. Father Status:Active Comments: d. at age 50, rheumatic heart disease Mother Status:Active Comments: d. lung mets from skin cancer Skin Cancer Status:Active Comments:Mother. Father Status:Active Comments: d. at age 50, rheumatic heart disease Mother Status:Active Comments: d. lung mets from skin cancer Skin Cancer Status:Active Comments:Mother. Father Status:Active Comments: d. at age 50, rheumatic heart disease Mother Status:Active Comments: d. lung mets from skin cancer Skin Cancer Status:Active Comments:Mother. Father Status:Active Comments: d. at age 50, rheumatic heart disease Mother Status:Active Comments: d. lung mets from skin cancer Skin Cancer Status:Active Comments:Mother. Father Status:Active Comments: d. at age 50, rheumatic heart disease Mother Status:Active Comments: d. lung mets from skin cancer Skin Cancer Status:Active Comments:Mother. Father Status:Active Comments: d. at age 50, rheumatic heart disease Mother Status:Active Comments: d. lung mets from skin cancer Skin Cancer Status:Active Comments:Mother. Father Status:Active Comments: d. at age 50, rheumatic heart disease Mother Status:Active Comments: d. lung mets from skin cancer Skin Cancer Status:Active Comments:Mother. Father Status:Active Comments: d. at age 50, rheumatic heart disease Mother Status:Active Comments: d. lung mets from skin cancer Skin Cancer Status:Active Comments:Mother. Father Status:Active Comments: d. at age 50, rheumatic heart disease Mother Status:Active Comments: d. lung mets from skin cancer Skin Cancer Status:Active Comments:Mother. Relationship Condition Age at Onset Recorded Date/T yonathan mother Malignant neoplasm Unknown Father Status:Active Comments: d. at age 50, rheumatic heart disease Mother Status:Active Comments: d. lung mets from skin cancer Skin Cancer Status:Active Comments:Mother. Father Status:Active Comments: d. at age 50, rheumatic heart disease Mother Status:Active Comments: d. lung mets from skin cancer Skin Cancer Status:Active Comments:Mother. Father Status:Active Comments: d. at age 50, rheumatic heart disease Mother Status:Active Comments: d. lung mets from skin cancer Skin Cancer Status:Active Comments:Mother. Father Status:Active Comments: d. at age 50, rheumatic heart disease Mother Status:Active Comments: d. lung mets from skin cancer Skin Cancer Status:Active Comments:Mother. Father Status:Active Comments: d. at age 50, rheumatic heart disease Mother Status:Active Comments: d. lung mets from skin cancer Skin Cancer Status:Active Comments:Mother. Reason for Referral Status Reason Specialty Diagnoses / Procedures Re ferred By Contact Referred To Contact New Request Radiology Diagnoses Chondromalacia of patellofemoral joint, right Procedures MR Knee Right Without Contrast Hedy Morales, TRAFFIC RATE COMPUTER [address] [place] [address] Specialty Diagnoses / Procedures Referred By Contac t Referred To Contact Cardiology Diagnoses Chondromalacia of patellofemoral joint, right Jay Squires MD [address] [place] [address] [facility] [address] [facility] [place] [address] Referral ID Status Reason Start Date Expiration Date Visits Requested Visits Authorized [id number] Authorized Specialty Services Required/Pat ient's Best Interest 04/13/2021 04/13/2022 1 1 Specialty Diagnoses / Procedures Referred By Contac t Referred To Contact Radiology Diagnoses Chondromalacia of patellofemoral joint, right Procedures CT Knee Right Without Contrast Jay Squires MD [address] [place] [address] Referral ID Status Reason Start Date Expiration Date V isits Requested Visits Authorized [id number] New Request 04/13/2021 04/13/2022 1 1 Specialty Diagnoses / Procedures Referred By Contac t Referred To Contact Cardiology Diagnoses Chondromalacia of patellofemoral joint, right Jay Squires MD [address] [place] [address] [facility] [address] [facility] [place] [address] Referral ID Status Reason Start Date Expiration Date V isits Requested Visits Authorized [id number] Closed Specialty Services Required/Jayleen ent's Best Interest 04/13/2021 04/13/2022 1 1 Specialty Diagnoses / Procedures Referred By Contac t Referred To Contact Radiology Diagnoses Chondromalacia of patellofemoral joint, right Procedures CT Knee Right Without Contrast Jay Squires MD [address] [place] [id number] Referral ID Status Reason Start Date Expiration Date Visits Re quested Visits Authorized [id number] Closed 04/13/2021 04/13/2022 1 1 Medications Administered Section Inactive Administered Medications - up to 3 most recent administrations Medication Order MAR Action Action Date Dose Rate Site tropicamide 0.5 % 1 Drop (MYDRIACYL) 1 Drop, BOTH EYES, ONCE, 1 dose, On 11/20/21 at 1130, FOR THE EYE Given 11/20/2021 11:30 AM EDT 1 Drop Chief Complaint and Reason for Visit Chief Complaint Admit Date OVARIAN CYST February 01, 2025 8:46a m Additional Source Comments Reason for Visit (unrecogniz ed section and content) Reason Comments Pain Reason Comments Follow-up Reason Comments Pre-op Exam right knee Reason Onset Date Comments Medication Refill 07/12/2021 Reason Comments Follow-up Suture / Staple Removal Wound Check Reason Comments Follow-up Wound Check Reason Comments Yearly Exam Contact lens evaluation Reason Comments Contact Lens Follow Up contact lens chec k Reason Comments Contact Lens Follow Up Reason Comments Red Eye Left Eye Reason Comments Episcleritis Follow Up Both eyes INFORMATION SOURCE (unrecogn ized section and content) DATE CREATED AUTHOR 11/11/2020 [facility] DATE CREATED AUTHOR AUTHOR'S ORGANIZ ATION 07/21/2021 [facility] DATE CREATED AUTHOR AUTHOR'S ORGANIZ ATION 08/24/2021 [facility] DATE CREATED AUTHOR AUTHOR'S ORGANIZ ATION 10/27/2022 [facility] DATE CREATED AUTHOR AUTHOR'S ORGANIZ ATION 08/08/2024 [facility] DATE CREATED AUTHOR AUTHOR'S ORGANIZ ATION 12/20/2024 [facility] DATE CREATED AUTHOR AUTHOR'S ORGANIZ ATION 03/23/2025 [facility] DATE CREATED AUTHOR AUTHOR'S ORGANIZ ATION 07/04/2025 [facility] Care Teams (unrecognized sec tion and content) Fur Cutter Relationship Specialty Start Date End Date Cristina Mercado MD [address] [place] [id number] PCP - General Family Medicine 11/07/20 Fur Cutter Relationship Specialty Start Date End Date Cristina Mercado MD [address] [place] [id number] PCP - General Family Medicine 11/07/20 Fur Cutter Relationship Specialty Start Date End Date Cristina Mercado MD [address] [place] [id number] PCP - General Family Medicine 11/07/20 Fur Cutter Relationship Specialty Start Date End Date Cristina Mercado MD [address] [phone] PCP - General Family Medicine 11/07/20 Fur Cutter Relationship Specialty Start Date End Date Cristina Mercado MD [address] [place] [address] PCP - General Family Medicine 11/07/20 Fur Cutter Relationship Specialty Start Date End Date Cristina Mercado MD [address] [place], [place] [phone] PCP - General Family Medicine 11/07/20 Fur Cutter Relationship Specialty Start Date End Date Cristina Mercado [address] [place] [address] PCP - General Family Practice 11/20/21 Fur Cutter Relationship Specialty Start Date End Date Cristina Mercado [address] [place] [phone] PCP - General Family Practice 11/20/21 Fur Cutter Relationship Specialty Start Date End Date Cristina Mercado [address] [place] [address] PCP - General Family Medicine 11/20/21 Fur Cutter Relationship Specialty Start Date End Date Cristina Mercado [address] [place] [address] PCP - General Family Medicine 11/20/21 Fur Cutter Relationship Specialty Start Date End Date Jess Cristina Marcell [address] [place] [place] [address] PCP - General Family Medicine 11/20/21 Fur Cutter Relationship Specialty Start Date End Date Cristina Mercado [address] [place] [address] PCP - General Family Medicine 11/20/21 Team Status: Active Member Role Status Dates Dr. Cristina Mercado MD Primary Care Provider Active Team Status: Inactive Member Role Status Dates Dr. Cristina Mercado MD Primary Care Provider Active Start: February 01, 2025 End: February 01, 2025 Kamilla Calvo NP, PIPING MANAGER-C Attending Provider Active Start: February 01, 2025 End: February 01, 2025 Kamilla Calvo NP, PIPING MANAGER-C Referring Provider Active Start: February 01, 2025 End: February 01, 2025 Fur Cutter Relationship Specialty Start Date End Date Cristina Mercado [address] [place] [address] PCP - General Family Medicine 11/20/21 Source Comments (unrecognize d section and content) In the event this informatio n is protected by the Federal Confidentiality of Alcohol and Drug Abuse Patient Records regulations: The Federal rules restrict any use of the information to criminally investigate or prosecute any alcohol or drug abuse patient.[facility] the event this information is protected by the Federal Confidentiality of Alcohol and Drug Abuse Patient Records regulations: The Federal rules restrict any use of the information to criminally investigate or prosecute any alcohol or drug abuse patient.[facility] Hospital[facility] the event this information is protected by the Federal Confidentiality of Alcohol and Drug Abuse Patient Records regulations: The Federal rules restrict any use of the information to criminally investigate or prosecute any alcohol or drug abuse patient.[facility] the event this information is protected by the Federal Confidentiality of Alcohol and Drug Abuse Patient Records regulations: The Federal rules restrict any use of the information to criminally investigate or prosecute any alcohol or drug abuse patient.[facility] Hospital[facility] the event this information is protected by the Federal Confidentiality of Alcohol and Drug Abuse Patient Records regulations: The Federal rules restrict any use of the information to criminally investigate or prosecute any alcohol or drug abuse patient.[facility] Hospital[facility] the event this information is protected by the Federal Confidentiality of Alcohol and Drug Abuse Patient Records regulations: The Federal rules restrict any use of the information to criminally investigate or prosecute any alcohol or drug abuse patient.[facility] HospitalIn the event this information is protected by the Federal Confidentiality of Alcohol and Drug Abuse Patient Records regulations: The Federal rules restrict any use of the information to criminally investigate or prosecute any alcohol or drug abuse patient.[facility] <item><item> Privacy Markings (unrecogniz ed section and content) Section Author: Marycruz Lopez PROHIBITION ON REDISCLOSURE OF CONFIDENTIAL INFORMATION This notice accompanies a disclosure of information concerning a client made to you with the consent of such client. Section Author: Marycruz Lopez PROHIBITION ON REDISCLOSURE OF CONFIDENTIAL INFORMATION This notice accompanies a disclosure of information concerning a client made to you with the consent of such client. Goals (unrecognized section and content) Goals may be documented in a n alternate section FOR RECORDS PERTAINING TO PATIENTS WHO ARE OR HAVE BEEN ENROLLED IN A CHEMICAL DEPENDENCY/SUBSTANCEABUSE PROGRAM, SOME INFORMATION MAY BE OMITTED. This clinical summary was aggregated from multiple sources. Caution should be exercised in using it in the provision of clinical care. This summary normalizes information from multiple sources, and as a consequence, information in this document may materially change the coding, format and clinical context of patient data. In addition, data may be omitted in some cases. CLINICAL DECISIONS SHOULD BE BASED ON THE PRIMARY CLINICAL RECORDS. [employer] provides no warranty or guarantee of the accuracy or completeness of information in this document.
[2025-07-08] MEDS: Lactated Ringers 1,000 ML 15 ML IV (06:10)
[2025-07-08] MEDS: Lidocaine 1% (5 ml sdv) 5 ML Vial 3 ML IV (07:35)
[2025-07-08] MEDS: Midazolam 2 MG/2 ML Syringe IV (07:35)
[2025-07-08] MEDS: Cefazolin 1 GM/5 ML Vial 2 GM IV (07:49)
[2025-07-08] MEDS: fentaNYL 100 MCG/2 ML Ampul 50 MCG IV (07:52)
[2025-07-08] MEDS: Epinephrine (1 mg/ml) 1 MG/ML VIAL (08:42)
--- NOTE | 2025-07-08 09:17 | PCM.OPRPT ---
Operative Report (Standard) Operative Information Date of Procedure: 07/08/25 Pre-Operative Diagnosis: 1. Right shoulder partial rotator cuff tear 2. 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 Right shoulder subacromial impingement syndrome Post-Operative Diagnosis: 1. Right shoulder rotator cuff tear 2. 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 Right shoulder subacromial impingement syndrome Surgery/Procedure Performed: 1. Right shoulder arthroscopic rotator cuff repair 2. Right shoulder arthroscopic subacromial decompression 3. Right shoulder arthroscopic biceps tenodesis steel box toe inserter: Yes Drawing Operator: Becky Roberts Tasks completed by registered nurse first assistant: Opening & closing, Implanting device and Retracting Type of Anesthesia: General/Regional RN Documented Start/Stop Times: Operation Date: 07/08/25 07:45 Case Time Into Pre-Op 07/08/25 05:49 Anesthesia Start 07/08/25 07:47 Into Room 07/08/25 07:47 Procedure Start 07/08/25 08:14 Procedure End 07/08/25 09:09 Procedure Start Time: 08:14 Procedure Stop Time: 09:09 Select all DRAINS/GRAFTS/IMPLANTS that apply: Implanted device Implanted device details: Arthrex self punching bio composite swivel lock anchor 4.75 mm x 2 Estimated Blood Loss: 5 cc Specimen collected: No Description of surgery: Patient was identified in the preoperative holding area by name, medical record number, and date of . The operative extremity was marked. All questions were answered to the patient's satisfaction. Interscalene block was then administered by anesthesia staff. At the time of her procedure, patient was brought to the operative suite positioned supine a standard operating table. General anesthesia was induced and LMA placed. Patient was positioned in a lateral decubitus position with the right side up. Axillary roll was placed. All bony prominences were well-padded. She was held in place with a beanbag. We spun the bed 45 degrees. Right upper extremities prepped and draped in a normal, sterile orthopedic fashion. Timeout was called confirming the side, site, and operation to be performed. No concerns were voiced elected to proceed with surgery. 2 g Ancef administered IV prior to incision by anesthesia staff. Right upper extremity was placed in arthroscopic traction with 10 pounds traction applied to the right arm throughout the arthroscopic portion of the case approximately 1 hour. A standard posterior portal was then established with 11 blade scalpel. Blunt tipped trocar was used to enter glenohumeral joint which was filled with normal saline with epinephrine. Anterior interval portal was established. Full-thickness tearing of the upper third without significant retraction of the subscapularis was noted. Minimal fraying of the biceps labral junction was noted. No significant articular sided tearing of the supraspinatus was noted. Minimal degenerative changes of the glenohumeral cartilage. No loose bodies identified. I then proceeded with fixation of the subscapularis first. A FiberLink suture was placed through an anterior superior lateral portal with a scorpion suture passer. I then performed a loop and tack fixation of the biceps tendon with a scorpion suture passer utilizing another FiberLink suture. Biceps tenotomy was performed with the arthroscopic cautery at the biceps labral junction. The tendon was allowed to retract to the lesser tuberosity. Both sutures were placed through the eyelet of a swivel lock anchor. A punch at the upper border of the lesser tuberosity was used to generate the airline transport pilot hole for the anchor. Swivel lock anchor was placed after suture was appropriately tensioned. There is excellent reapproximation of subscapularis anatomy and securing of the biceps at the site of tenodesis. Sutures were cut flush with the anchor. I then withdrew the arthroscope into the shoulder in the subacromial space. Extensive bursitis was noted. Lateral portal was established. Bursitis was excised with shaver. The acromion was skeletonized and a prominent downsloping spur was noted. This was resected with a arthroscopic bur to a smooth type I acromion. Debridement of the bursal side of the supraspinatus was performed as significant tendinosis and fraying was noted. Light debridement yielded a near complete tear of the crescent portion of the supraspinatus. I completed this to a full-thickness tear easily with a tissue elevator. I proceeded with fixation of the supraspinatus. An inverted mattress suture tape was placed with a scorpion suture passer and then a fiber link was placed medial to this achieving a ripstop type fixation. Sutures were placed through the eyelet of a swivel lock anchor which was then placed in the lateral margin of the greater tuberosity with excellent reapproximation of the tendon tissue and good compression. No dogears were identified. Stable to probing and rotation. Sutures were cut. Subacromial space was thoroughly lavaged. Arthroscopic instruments were removed. Portal sites were closed interrupted [id number] fashion with 3-0 nylon suture. Bulky sterile compression dressing was applied. Patient was placed in an UltraSling. She was safely extubated and awakened in the operative suite. She was transferred to her gurney and subsequent to PACU in stable condition. She tolerated the procedure well without apparent complication. Need for skilled trust operations assistant: Becky Roberts PA-C was critical to the outcome of the case. During the course of the procedure the physician trust operations assistant played a vital role. Her intimate knowledge of my steps in the procedure aided in safe and expedient completion of the procedure. The PA played a vital role in positioning particularly in obtaining the appropriate positioning. The PA was also vital in the retraction of soft tissues during the exposure and protecting vital structures. The PA was also vital and obtaining tendon reduction and assisting with hardware placement. She also played a vital role in closure and sling application with my direct supervision. Postoperative plan: Patient will be discharged home same day. Sling x 6 weeks. Physical therapy started 2 weeks in standard rotator cuff repair protocol. Multimodal pain management with Tylenol ibuprofen and oxycodone. Aspirin 81 mg twice daily for DVT prophylaxis. Follow-up in 2 weeks for suture removal. Surgical Findings: Full-thickness upper border subscapularis tearing. Near complete bursal sided tearing of the supraspinatus. Complications Complications: No Admit VTE Documentation VTE Present on Admission: No VTE Mechan Device Prophylaxis: SCD's VTE Pharm Prophylaxis ordered?: Yes
--- NOTE | 2025-07-08 09:25 | PCM.POST.ANE ---
Anesthesia: Postop Eval I Current Vital Signs Temperature: 98 F Pulse Rate: 65 Blood Pressure: 147/77 Respiratory Rate: 16 Pulse Ox: 92 Oxygen Delivery Method: Room Air Assessment Airway patent: Yes Spontaneous unlabored respirations: Yes Mental status: Awake and Calm nausea: No Vomiting: No Anesthesia Complication: No Fluid Hydration Crystalloid volume administer (ml): 900 Total IV fluid infused: 900 Progress Note Anesthesia document: Postop Eval 1 completed: Yes
--- NOTE | 2025-07-08 14:24 | POSTOPAN2_ITS ---
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 Anesthesia Postop Eval I: Fluid Summary Crystalloid volume administer 900 07/08/25 09:26 RAILWAY TRACK PLANT OPERATOR.MDOT (ml) Colloids volume administered ( ml) Blood Product volume administered (ml) Total IV fluid infused 900 07/08/25 09:26 RAILWAY TRACK PLANT OPERATOR.OT Anesthesia Postop Eval I: Summary Notes Anesthesia Complication No 07/08/25 09:26 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
--- NOTE | 2025-07-08 14:24 | PCM.POSTANE2 ---
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.MDOT Vomiting No 07/08/25 09:26 SALESPERSON HOUSEHOLD APPLIANCES.MDOT Anesthesia Postop Eval I: Fluid Summary Crystalloid volume administer 900 07/08/25 09:26 SALESPERSON HOUSEHOLD APPLIANCES.MDOT (ml) Colloids volume administered ( ml) Blood Product volume administered (ml) Total IV fluid infused 900 07/08/25 09:26 SALESPERSON HOUSEHOLD APPLIANCES.OT Anesthesia Postop Eval I: Summary Notes Anesthesia Complication No 07/08/25 09:26 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
== END 2025-07-08 11:27 | disposition home or self-care (01) ==
LOC: SDC 05:46 → AC 05:46
PROVIDERS: PCP Family Medicine; Referring Provider Student in an Organized Health Care Education/Training Program; Visit Provider Student in an Organized Health Care Education/Training Program
DX: M75.121 Complete rotator cuff tear or rupture of right shoulder, not specified as traumatic (principal); M25.311 Other instability, right shoulder; M75.41 Impingement syndrome of right shoulder; M75.31 Calcific tendinitis of right shoulder; M75.51 Bursitis of right shoulder; E78.00 Pure hypercholesterolemia, unspecified; Z79.899 Other long term (current) drug therapy
CPT/HCPCS: 29827; 29828; 29826; 01630; 64415; 36415; 80048; 85025; 93005; C1713; J2405